=== PATIENT | female | born 1985 | race Caucasian/White ===

== ENCOUNTER 2017-05-15 08:12 | Emergency (ER) | payer BC ==
[2017-05-15 08:21] VITALS: TEMP 97
[2017-05-15] MEDS ORDERED: FAMOTIDINE 20 MG/2 ML VIAL IV STA (08:34)
[2017-05-15] MEDS ORDERED: SODIUM CHLORIDE 0.9% 1,000 ML IV STA (08:34)
--- NOTE | 2017-05-15 08:37 | ED ---
General Adult HPI - General Chief complaint: Abdominal Pain Stated complaint: Can't stop shaking Time Seen by Provider: 05/15/17 08:28 Source: patient, RN notes reviewed Mode of arrival: wheelchair Limitations: no limitations - History of Present Illness Initial comments: 31-year-old female presents to the emergency department with a chief complaint of centralized abdominal pain. She states that for the last week. She went to the hospital then she follow-up with her doctor yesterday. They think it is anxiety and she started on Prozac. She states she feels as if there is something wrong. She states that she's had nausea and vomiting. She states she hasn't had as much urination or bowel movements is normal. She states that she just needs to figure was going on. Patient is very tearful on exam. Patient denies any recent fever, chills, shortness of breath, chest pain, back pain, numbness or tingling, dysuria or hematuria, constipation or diarrhea, headaches or visual changes, or any other current symptoms. - Related Data Home Medications Medication Instructions Recorded Confirmed FLUoxetine HCL [PROzac] 10 mg PO DAILY 05/15/17 05/15/17 Famotidine [Pepcid] 20 mg PO DAILY 05/15/17 05/15/17 Ondansetron HCl [Zofran] 8 mg PO Q8HR PRN 05/15/17 05/15/17 busPIRone HCl [Buspar] 5 mg PO DAILY 05/15/17 05/15/17 Previous Rx's Medication Instructions Recorded Ondansetron Odt [Zofran ODT] 4 mg PO Q8HR PRN #20 tab 05/15/17 Allergies Allergy/AdvReac Type Severity Reaction Status Date / Time No Known Allergies Allergy Verified 05/15/17 08:50 Review of Systems ROS Statement: Those systems with pertinent positive or pertinent negative responses have been documented in the HPI. ROS Other: All systems not noted in ROS Statement are negative. Past Medical History Past Medical History: No Reported History History of Any Multi-Drug Resistant Organisms: None Reported Past Surgical History: No Surgical Hx Reported Past Psychological History: Anxiety Smoking Status: Never smoker Past Alcohol Use History: None Reported Past Drug Use History: Marijuana General Exam - General Exam Comments Initial Comments: General: The patient is awake and alert, anxious and tearful, and does not appear acutely ill. Eye: Pupils are equal, round. Ears, nose, mouth and throat: There are moist mucous membranes and no oral lesions. Neck: The neck is supple, there is no tenderness . Cardiovascular: There is a regular rate and rhythm. No murmur, rub or gallop is appreciated. Respiratory: Lungs are clear to auscultation, respirations are non-labored, breath sounds are equal. No wheezes, stridor, rales, or rhonchi. Gastrointestinal: Soft, non-distended, non-tender abdomen without masses or organomegaly noted. There is no rebound or guarding present. No CVA tenderness. Bowel sounds are unremarkable. Back: There is no tenderness to palpation in the midline. There is no obvious deformity. No rashes noted. Musculoskeletal: Normal ROM, no tenderness, There is no pedal edema. There is no calf tenderness or swelling. Sensation intact. Pulses equal bilaterally 2+. Neurological: CN II-XII intact, There are no obvious motor or sensory deficits. Coordination appears grossly intact. Speech is normal. Skin: Skin is warm and dry and no rashes or lesions are noted. Psychiatric: Cooperative, appropriate mood & affect, normal judgment. Limitations: no limitations Course Vital Signs 05/15/17 05/15/17 08:16 09:21 Temperature 97.0 F L Pulse Rate 106 H 91 Respiratory 18 16 Rate Blood Pressure 135/90 115/77 O2 Sat by Pulse 98 98 Oximetry Medical Decision Making - Medical Decision Making 31-year-old female presents for abdominal pain with nausea vomiting. This and laboratory she does show some dehydration. We will send the urine for culture as well. We discussed that she needs to follow-up with a GI specialist for her continued discomfort. We discussed continuing the and acid that she is on. We did discuss refrain from marijuana and used to see if this could also be contributing to her symptoms. We did discuss the importance of close follow-up return parameters all questions. Patient family stated the Margarito management this plan. All questions have been answered. They will be discharged home. - Lab Data Result diagrams: 05/15/17 08:43 05/15/17 08:43 Lab Results 05/15/17 05/15/17 05/15/17 Range/Units 08:43 08:43 08:43 WBC 8.2 (3.8-10.6) k/uL RBC 5.50 H (3.80-5.40) m/uL Hgb 16.5 H (11.4-16.0) gm/dL Hct 50.3 H (34.0-46.0) % MCV 91.3 (80.0-100.0) fL MCH 30.0 (25.0-35.0) pg MCHC 32.9 (31.0-37.0) g/dL RDW 11.6 (11.5-15.5) % Plt Count 239 (150-450) k/uL Neutrophils % 80 % Lymphocytes % 14 % Monocytes % 4 % Eosinophils % 1 % Basophils % 0 % Neutrophils # 6.5 (1.3-7.7) k/uL Lymphocytes # 1.1 (1.0-4.8) k/uL Monocytes # 0.3 (0-1.0) k/uL Eosinophils # 0.1 (0-0.7) k/uL Basophils # 0.0 (0-0.2) k/uL Sodium 142 (137-145) mmol/L Potassium 5.3 H (3.5-5.1) mmol/L Chloride 107 (98-107) mmol/L Carbon Dioxide 22 (22-30) mmol/L Anion Gap 13 mmol/L BUN 13 (7-17) mg/dL Creatinine 0.70 (0.52-1.04) mg/dL Est GFR (MDRD) Af Amer >60 (>60 ml/min/1.73 sqM) Est GFR (MDRD) Non-Af >60 (>60 ml/min/1.73 sqM) Glucose 114 H (74-99) mg/dL Calcium 10.4 H (8.4-10.2) mg/dL Total Bilirubin 1.1 (0.2-1.3) mg/dL AST 23 (14-36) U/L ALT 15 (9-52) U/L Alkaline Phosphatase 59 (38-126) U/L Total Protein 8.3 H (6.3-8.2) g/dL Albumin 5.0 (3.5-5.0) g/dL Amylase 47 (30-110) U/L Urine Color Yellow Urine Appearance Cloudy H (Clear) Urine pH 6.5 (5.0-8.0) Ur Specific [place] 1.028 (1.001-1.035) Urine Protein 1+ H (Negative) Urine Glucose (UA) Negative (Negative) Urine Ketones 2+ H (Negative) Urine Blood Negative (Negative) Urine Nitrite Negative (Negative) Urine Bilirubin Negative (Negative) Urine Urobilinogen 6.0 (<2.0) mg/dL Ur Leukocyte Esterase Large H (Negative) Urine WBC 21 H (0-5) /hpf Ur Squamous Epith Cells 12 H (0-4) /hpf Urine Bacteria Rare H (None) /hpf Urine Mucus Many H (None) /hpf Urine HCG, Qual (Not Detectd) Urine Opiates Screen Not Detected (NotDetected) Ur Oxycodone Screen Not Detected (NotDetected) Urine Methadone Screen Not Detected (NotDetected) Ur Propoxyphene Screen Not Detected (NotDetected) Ur Barbiturates Screen Not Detected (NotDetected) U Tricyclic Antidepress Not Detected (NotDetected) Ur Phencyclidine Scrn Not Detected (NotDetected) Ur Amphetamines Screen Not Detected (NotDetected) U Methamphetamines Scrn Not Detected (NotDetected) U Benzodiazepines Scrn Not Detected (NotDetected) Urine Cocaine Screen Not Detected (NotDetected) U Marijuana (THC) Screen Detected H (NotDetected) 05/15/17 Range/Units 08:43 WBC (3.8-10.6) k/uL RBC (3.80-5.40) m/uL Hgb (11.4-16.0) gm/dL Hct (34.0-46.0) % MCV (80.0-100.0) fL MCH (25.0-35.0) pg MCHC (31.0-37.0) g/dL RDW (11.5-15.5) % Plt Count (150-450) k/uL Neutrophils % % Lymphocytes % % Monocytes % % Eosinophils % % Basophils % % Neutrophils # (1.3-7.7) k/uL Lymphocytes # (1.0-4.8) k/uL Monocytes # (0-1.0) k/uL Eosinophils # (0-0.7) k/uL Basophils # (0-0.2) k/uL Sodium (137-145) mmol/L Potassium (3.5-5.1) mmol/L Chloride (98-107) mmol/L Carbon Dioxide (22-30) mmol/L Anion Gap mmol/L BUN (7-17) mg/dL Creatinine (0.52-1.04) mg/dL Est GFR (MDRD) Af Amer (>60 ml/min/1.73 sqM) Est GFR (MDRD) Non-Af (>60 ml/min/1.73 sqM) Glucose (74-99) mg/dL Calcium (8.4-10.2) mg/dL Total Bilirubin (0.2-1.3) mg/dL AST (14-36) U/L ALT (9-52) U/L Alkaline Phosphatase (38-126) U/L Total Protein (6.3-8.2) g/dL Albumin (3.5-5.0) g/dL Amylase (30-110) U/L Urine Color Urine Appearance (Clear) Urine pH (5.0-8.0) Ur Specific [place] (1.001-1.035) Urine Protein (Negative) Urine Glucose (UA) (Negative) Urine Ketones (Negative) Urine Blood (Negative) Urine Nitrite (Negative) Urine Bilirubin (Negative) Urine Urobilinogen (<2.0) mg/dL Ur Leukocyte Esterase (Negative) Urine WBC (0-5) /hpf Ur Squamous Epith Cells (0-4) /hpf Urine Bacteria (None) /hpf Urine Mucus (None) /hpf Urine HCG, Qual Not Detected (Not Detectd) Urine Opiates Screen (NotDetected) Ur Oxycodone Screen (NotDetected) Urine Methadone Screen (NotDetected) Ur Propoxyphene Screen (NotDetected) Ur Barbiturates Screen (NotDetected) U Tricyclic Antidepress (NotDetected) Ur Phencyclidine Scrn (NotDetected) Ur Amphetamines Screen (NotDetected) U Methamphetamines Scrn (NotDetected) U Benzodiazepines Scrn (NotDetected) Urine Cocaine Screen (NotDetected) U Marijuana (THC) Screen (NotDetected) - Radiology Data Radiology results: report reviewed, image reviewed Disposition Clinical Impression: Dehydration, Abdominal pain Disposition: HOME SELF-CARE Condition: Stable Instructions: Abdominal Pain (ED) Additional Instructions: Please use medication as discussed. Please follow up with family doctor if symptoms have not improved over the next two days. Please return to the emergency room if your symptoms increase or worsen or for any other concerns. Prescriptions: Ondansetron Odt [Zofran ODT] 4 mg PO Q8HR PRN #20 tab PRN Reason: Nausea Referrals: Niki Fritz MD [Primary Care Provider] - 1-2 days Kiera Charles MD [STAFF PHYSICIAN] - 1-2 days Time of Disposition: 10:04
[2017-05-15 09:05] LABS: Basophils % (A) 0 %; Eosinophils # (A) 0.1 k/uL (0-0.7); Eosinophils % (A) 1 %; HCT 50.3 % (34.0-46.0); HGB 16.5 gm/dL (11.4-16.0); Lymphocytes # (A) 1.1 k/uL (1.0-4.8); Lymphocytes % (A) 14 %; MCHC 32.9 g/dL (31.0-37.0); MCV 91.3 fL (80.0-100.0); Monocytes # (A) 0.3 k/uL (0-1.0); Monocytes % (A) 4 %; Neutrophils # (A) 6.5 k/uL (1.3-7.7); Neutrophils % (A) 80 %; Platelet Count 239 k/uL (150-450); RDW 11.6 % (11.5-15.5); WBC 8.2 k/uL (3.8-10.6)
[2017-05-15 09:09] LABS: Appearance,Urine Cloudy (Clear); Bacteria,Urine Rare /hpf; Bilirubin,Urine Negative (Negative); Blood,Urine Negative (Negative); Color,Urine Yellow; Glucose,Urine (UA) Negative (Negative); Ketones,Urine 2+ (Negative); Leukocyte Esterase,Urine Large (Negative); Mucus,Urine Many /hpf; Nitrite,Urine Negative (Negative); PH, Urine 6.5 (5.0-8.0); Protein,Urine 1+ (Negative); Specific Gravity,Urine 1.028 (1.001-1.035); Squamous Epithelial Cell,Urine 12 /hpf (0-4); WBC,Urine 21 /hpf (0-5)
[2017-05-15 09:16] LABS: Amphetamine Screen,Urine Not Detected (NotDetected); Barbiturate Screen,Urine Not Detected (NotDetected); Benzodiazepines Screen,Urine Not Detected (NotDetected); Cocaine Screen,Urine Not Detected (NotDetected); Methadone Screen, Urine Not Detected (NotDetected); Opiate Screen,Urine Not Detected (NotDetected); Oxycodone Screen, Urine Not Detected (NotDetected); Phencyclidine Screen,Urine Not Detected (NotDetected); Tricyclic Antidepressant,Urine Not Detected (NotDetected); Urn Cannabinoid Scrn Detected (NotDetected)
[2017-05-15 09:17] LABS: ALT 15 U/L (9-52); AST 23 U/L (14-36); Alkaline Phosphatase 59 U/L (38-126); Amylase 47 U/L (30-110); Anion Gap 13 mmol/L; Blood Urea Nitrogen 13 mg/dL (7-17); Calcium 10.4 mg/dL (8.4-10.2); Carbon Dioxide 22 mmol/L (22-30); Chloride 107 mmol/L (98-107); Glucose 114 mg/dL (74-99); Sodium 142 mmol/L (137-145); Total Bilirubin 1.1 mg/dL (0.2-1.3); Total Protein 8.3 g/dL (6.3-8.2)
[2017-05-15 09:21] LABS: Potassium 5.3 mmol/L (3.5-5.1)
--- NOTE | 2017-05-15 09:51 | XR ---
EXAMINATION TYPE: XR abdomen 2V DATE OF EXAM: 05/15/2017 9:40 AM CLINICAL HISTORY: Pain TECHNIQUE: Single supine KUB image of the abdomen is obtained. COMPARISON: None. FINDINGS: Scattered gas is seen in non-distended small bowel loops. Gas and fecal material is seen in non-distended colon. There is no visceromegaly, pneumoperitoneum, or abnormal calcification apprecia francisco. The lung bases are clear and the osseous structures are intact. IMPRESSION: Overall nonobstructive bowel gas pattern.
[2017-05-15 10:03] VITALS: BP 109/65
[2017-05-15 10:22] VITALS: PULSE 87; RESP 18
== END 2017-05-15 10:20 | disposition home or self-care (01) ==
LOC: EC 08:12
DX: E86.0 Dehydration (principal); R10.9 Unspecified abdominal pain; R11.2 Nausea with vomiting, unspecified; F41.9 Anxiety disorder, unspecified; Z79.899 Other long term (current) drug therapy
CPT/HCPCS: 36415; 74019; 80053; 80306; 81001; 81025; 82150; 85025; 87086; 96374; 99284

== ENCOUNTER 2017-05-15 15:56 | Inpatient (IN) | payer BC ==
[2017-05-15] MEDS ORDERED: RX INFO: IV CONTRAST WAS GIVEN 1 EACH MISC MISCELLANE PRN (16:47)
[2017-05-15] MEDS ORDERED: SODIUM CHLORIDE 0.9% 1,000 ML IV ONE (16:48)
[2017-05-15] MEDS ORDERED: LORazepam 2 MG/ML INJ IV STA (16:48)
[2017-05-15 17:05] LABS: Basophils # (A) 0.1 k/uL (0-0.2); Basophils % (A) 1 %; Eosinophils # (A) 0.1 k/uL (0-0.7); Eosinophils % (A) 1 %; HCT 48.6 % (34.0-46.0); HGB 15.6 gm/dL (11.4-16.0); Lymphocytes % (A) 19 %; MCH 29.7 pg (25.0-35.0); MCV 92.6 fL (80.0-100.0); Mean Platelet Volume 7.2; Monocytes # (A) 0.4 k/uL (0-1.0); Monocytes % (A) 4 %; Neutrophils # (A) 7.5 k/uL (1.3-7.7); Neutrophils % (A) 74 %; Platelet Count 272 k/uL (150-450); RBC 5.24 m/uL (3.80-5.40); RDW 13.3 % (11.5-15.5); WBC 10.1 k/uL (3.8-10.6)
[2017-05-15 17:17] LABS: Anion Gap 15 mmol/L; Blood Urea Nitrogen 8 mg/dL (7-17); Calcium 9.9 mg/dL (8.4-10.2); Carbon Dioxide 18 mmol/L (22-30); Chloride 108 mmol/L (98-107); Glucose 115 mg/dL (74-99); Lipase 71 U/L (23-300); Potassium 4.1 mmol/L (3.5-5.1); Sodium 141 mmol/L (137-145)
[2017-05-15 17:21] LABS: Amphetamine Screen,Urine Not Detected (NotDetected); Barbiturate Screen,Urine Not Detected (NotDetected); Benzodiazepines Screen,Urine Not Detected (NotDetected); Cocaine Screen,Urine Not Detected (NotDetected); Methadone Screen, Urine Not Detected (NotDetected); Opiate Screen,Urine Not Detected (NotDetected); Oxycodone Screen, Urine Not Detected (NotDetected); Phencyclidine Screen,Urine Not Detected (NotDetected); Tricyclic Antidepressant,Urine Not Detected (NotDetected); Urn Cannabinoid Scrn Detected (NotDetected)
--- NOTE | 2017-05-15 17:48 | CT ---
EXAMINATION TYPE: CT abdomen pelvis w con DATE OF EXAM: 05/15/2017 COMPARISON: NONE HISTORY: Patient complains of "gnawing" pain. CT DLP: 1039 mGycm Automated exposure control for dose reduction was used. TECHNIQUE: Helical acquisition of images was performed from the lung bases through the pelvis. CONTRAST: Performed without Oral Contrast and with IV Contrast, patient injected with 100 mL of Omnipaque 300. FINDINGS: Lung bases are clear. There is no pleural effusion. Liver spleen pancreas gallbladder appear normal. Bile ducts are not dilated. There is no adrenal mass. The kidneys show satisfactory contrast opacific ation. There is no hydronephrosis. Ureters are not dilated. Bladder distends smoothly. There is no si gn of a pelvic mass. Uterus is anteverted. There is no free fluid in the pelvis. I see no intestinal wall thickening. There are no dilated loops. There is no sign of appendicitis. Appendix appears jagjit l. I see no bony destructive process. There is a 1.7 cm irregular cyst on the left ovary. IMPRESSION: NEGATIVE CT SCAN OF THE ABDOMEN AND PELVIS. IRREGULAR SMALL LEFT OVARIAN CYST.
--- NOTE | 2017-05-15 19:46 | ED ---
Psych HPI - General Chief Complaint: Psychiatric Symptoms Stated Complaint: not feeling well-revisit Time Seen by Provider: 05/15/17 16:06 Source: patient Mode of arrival: ambulatory - History of Present Illness Initial Comments: 31-year-old female with no psych history presenting for evaluation of intense anxiety. She states that her symptoms started last and have progressively been worsening since then. She was seen by her primary care physician who started her on BuSpar and Prozac states that she had nausea vomiting and hasn't been able to keep them down. She states a week ago she started having epigastric abdominal pain and was seen at an outside facility with a negative workup and sent home. He is continued to have this pain which she states is now going throughout her entire abdomen. She denies any new medications, changes in her medications, fevers, chills, or injuries. She has never had anxiety prior to this and states she feels restless and cannot sit down. - Related Data Home Medications Medication Instructions Recorded Confirmed FLUoxetine HCL [PROzac] 10 mg PO DAILY 05/15/17 05/15/17 Famotidine [Pepcid] 20 mg PO DAILY 05/15/17 05/15/17 Ondansetron HCl [Zofran] 8 mg PO Q8HR PRN 05/15/17 05/15/17 busPIRone HCl [Buspar] 5 mg PO DAILY 05/15/17 05/15/17 Previous Rx's Medication Instructions Recorded Ondansetron Odt [Zofran ODT] 4 mg PO Q8HR PRN #20 tab 05/15/17 Allergies Allergy/AdvReac Type Severity Reaction Status Date / Time No Known Allergies Allergy Verified 05/15/17 16:06 Review of Systems ROS Statement: Those systems with pertinent positive or pertinent negative responses have been documented in the HPI. ROS Other: All systems not noted in ROS Statement are negative. Constitutional: Denies: fever, chills, weakness Eyes: Denies: eye pain, vision change ENT: Denies: ear pain, throat pain Respiratory: Denies: cough, dyspnea Cardiovascular: Denies: chest pain, palpitations Endocrine: Denies: fatigue, polydipsia, polyuria Gastrointestinal: Reports: abdominal pain, nausea, vomiting. Denies: diarrhea, constipation, hematemesis, melena, hematochezia Genitourinary: Denies: urgency, dysuria Musculoskeletal: Denies: back pain, arthralgia, myalgia Skin: Denies: rash, lesions, change in color Neurological: Denies: headache, weakness Psychiatric: Reports: anxiety. Denies: depression, auditory hallucinations, visual hallucinations, homicidal thoughts, suicidal thoughts Hematological/Lymphatic: Denies: easy bleeding, swollen glands Past Medical History Past Medical History: No Reported History History of Any Multi-Drug Resistant Organisms: None Reported Past Surgical History: No Surgical Hx Reported Past Psychological History: Anxiety Smoking Status: Never smoker Past Alcohol Use History: None Reported Past Drug Use History: Marijuana General Exam General appearance: alert, anxious, in distress (Anxious and pacing the room) Head exam: Present: atraumatic, normocephalic, normal inspection Eye exam: Present: normal appearance, PERRL, EOMI. Absent: scleral icterus, conjunctival injection ENT exam: Present: normal exam, normal oropharynx Neck exam: Present: normal inspection. Absent: tenderness Respiratory exam: Present: normal lung sounds bilaterally. Absent: respiratory distress Cardiovascular Exam: Present: normal rhythm, tachycardia. Absent: regular rate GI/Abdominal exam: Present: soft, tenderness. Absent: distended, guarding, rebound, rigid Rectal exam: Present: deferred Extremities exam: Present: normal inspection, full ROM Back exam: Present: normal inspection, full ROM Neurological exam: Present: alert, oriented X3, CN II-XII intact, normal gait Psychiatric exam: Present: agitated, anxious. Absent: homicidal ideation, suicidal ideation Skin exam: Present: warm, dry, intact, normal color Course Vital Signs 05/15/17 15:59 Temperature 97.4 F L Pulse Rate 102 H Respiratory 18 Rate Blood Pressure 132/85 O2 Sat by Pulse 94 L Oximetry Medical Decision Making - Medical Decision Making 31-year-old female with past medical history as noted above presented for psych evaluation and epigastric abdominal pain. She states that she has Oscar been seen for the abdominal pain and outside facility with negative workup. Patient states that she is abnormally anxious and is unable to sit down or relaxed. On physical examination the patient appears to be moderately distressed and anxiously pacing the room. As she is relating her story she becomes even more agitated however is not violent and denies suicidal or homicidal ideations. Physical examination reveals epigastric abdominal pain however no other significant abnormalities are noted. We will obtain a medical workup however patient will be requiring a psych evaluation. Labs revealed marijuana in her UDS however the remainder of her labs show no significant abnormalities. CT abdomen and pelvis showed no acute process. Psych solid patient and determined that she would necessitate inpatient psychiatric admission. Admission order placed in bed request submitted. - Lab Data Result diagrams: 05/15/17 16:55 05/15/17 16:55 Lab Results 05/15/17 05/15/17 05/15/17 Range/Units 16:55 16:55 17:00 WBC 10.1 (3.8-10.6) k/uL RBC 5.24 (3.80-5.40) m/uL Hgb 15.6 (11.4-16.0) gm/dL Hct 48.6 H (34.0-46.0) % MCV 92.6 (80.0-100.0) fL MCH 29.7 (25.0-35.0) pg MCHC 32.0 (31.0-37.0) g/dL RDW 13.3 (11.5-15.5) % Plt Count 272 (150-450) k/uL Neutrophils % 74 % Lymphocytes % 19 % Monocytes % 4 % Eosinophils % 1 % Basophils % 1 % Neutrophils # 7.5 (1.3-7.7) k/uL Lymphocytes # 2.0 (1.0-4.8) k/uL Monocytes # 0.4 (0-1.0) k/uL Eosinophils # 0.1 (0-0.7) k/uL Basophils # 0.1 (0-0.2) k/uL Sodium 141 (137-145) mmol/L Potassium 4.1 (3.5-5.1) mmol/L Chloride 108 H (98-107) mmol/L Carbon Dioxide 18 L (22-30) mmol/L Anion Gap 15 mmol/L BUN 8 (7-17) mg/dL Creatinine 0.61 (0.52-1.04) mg/dL Est GFR (MDRD) Af Amer >60 (>60 ml/min/1.73 sqM) Est GFR (MDRD) Non-Af >60 (>60 ml/min/1.73 sqM) Glucose 115 H (74-99) mg/dL Calcium 9.9 (8.4-10.2) mg/dL Lipase 71 (23-300) U/L Urine Opiates Screen Not Detected (NotDetected) Ur Oxycodone Screen Not Detected (NotDetected) Urine Methadone Screen Not Detected (NotDetected) Ur Propoxyphene Screen Not Detected (NotDetected) Ur Barbiturates Screen Not Detected (NotDetected) U Tricyclic Antidepress Not Detected (NotDetected) Ur Phencyclidine Scrn Not Detected (NotDetected) Ur Amphetamines Screen Not Detected (NotDetected) U Methamphetamines Scrn Not Detected (NotDetected) U Benzodiazepines Scrn Not Detected (NotDetected) Urine Cocaine Screen Not Detected (NotDetected) U Marijuana (THC) Screen Detected H (NotDetected) Disposition Clinical Impression: Acute anxiety, Epigastric abdominal pain Disposition: ADMITTED IP TO THIS [facility] Referrals: Niki Fritz MD [Primary Care Provider] - 1-2 days Decision to Admit Reason: Admit from EC Decision Date: 05/15/17 Decision Time: 19:45
[2017-05-15] MEDS ORDERED: ACETAMINOPHEN TAB 500 MG TAB PO STA (20:07)
[2017-05-15] MEDS ORDERED: MAG HYDROX/AL HYDROX/SIMETH 30 ML CUP PO PRN (22:02)
[2017-05-15] MEDS ORDERED: ACETAMINOPHEN TAB 325 MG TAB PO PRN (22:02)
[2017-05-15] MEDS ORDERED: MAGNESIUM HYDROXIDE 2,400 MG/10 ML CUP PO PRN (22:02)
[2017-05-15] MEDS ORDERED: LORazepam 1 MG TAB PO PRN (22:02)
[2017-05-16 08:34] LABS: Basophils % (A) 1 %; Eosinophils # (A) 0.1 k/uL (0-0.7); Eosinophils % (A) 1 %; HCT 45.8 % (34.0-46.0); HGB 15.2 gm/dL (11.4-16.0); Lymphocytes # (A) 1.9 k/uL (1.0-4.8); Lymphocytes % (A) 37 %; MCH 30.4 pg (25.0-35.0); MCHC 33.2 g/dL (31.0-37.0); MCV 91.6 fL (80.0-100.0); Mean Platelet Volume 6.7; Monocytes # (A) 0.2 k/uL (0-1.0); Monocytes % (A) 4 %; Neutrophils # (A) 2.8 k/uL (1.3-7.7); Neutrophils % (A) 54 %; Platelet Count 236 k/uL (150-450); RDW 11.6 % (11.5-15.5); WBC 5.1 k/uL (3.8-10.6)
[2017-05-16 08:58] LABS: ALT 27 U/L (9-52); AST 13 U/L (14-36); Albumin 4.2 g/dL (3.5-5.0); Alkaline Phosphatase 54 U/L (38-126); Anion Gap 11 mmol/L; Blood Urea Nitrogen 9 mg/dL (7-17); Calcium 9.7 mg/dL (8.4-10.2); Carbon Dioxide 22 mmol/L (22-30); Chloride 108 mmol/L (98-107); Glucose 91 mg/dL (74-99); Potassium 4.3 mmol/L (3.5-5.1); Sodium 141 mmol/L (137-145); Total Protein 6.9 g/dL (6.3-8.2)
[2017-05-16 09:55] VITALS: BMI 21.7
--- NOTE | 2017-05-16 12:24 | P.HPIM ---
History of Present Illness H&P Date: 05/16/17 Patient is a 31-year-old female patient of Dr. Fritz presented to [facility] emergency room with depression and having ideas of suicide. Patient stated that she was having severe abdominal pain that was bothering her a lot and making her unable to eat or sleep, she was even thinking of not living anymore due to severe pain. She was evaluated in emergency room and admitted to the psychiatry unit. Medical consultation was requested. CT scan of the abdomen and pelvis was done in ER and did not show any significant abnormality. Lipase was normal WBC normal. Past Medical History Past Medical History: Cancer Additional Past Medical History / Comment(s): history of cervical cancer at age 17 History of Any Multi-Drug Resistant Organisms: None Reported Past Surgical History: No Surgical Hx Reported Additional Past Surgical History / Comment(s): removal of wisdom teeth Past Anesthesia/Blood Transfusion Reactions: No Reported Reaction Past Psychological History: No Psychological Hx Reported Smoking Status: Former smoker Past Alcohol Use History: None Reported Past Drug Use History: Marijuana Medications and Allergies Home Medications Medication Instructions Recorded Confirmed Type FLUoxetine HCL [PROzac] 10 mg PO DAILY 05/15/17 05/15/17 History Famotidine [Pepcid] 20 mg PO DAILY 05/15/17 05/15/17 History Ondansetron HCl [Zofran] 8 mg PO Q8HR PRN 05/15/17 05/15/17 History Ondansetron Odt [Zofran ODT] 4 mg PO Q8HR PRN #20 tab 05/15/17 05/15/17 Rx busPIRone HCl [Buspar] 5 mg PO DAILY 05/15/17 05/15/17 History Allergies Allergy/AdvReac Type Severity Reaction Status Date / Time No Known Allergies Allergy Verified 05/15/17 16:06 Physical Exam Vitals: Vital Signs Temp Pulse Pulse Resp BP BP Pulse Ox 05/16/17 09:39 98.0 F 118 H 135/77 05/16/17 06:40 97.9 F 130 H 16 154/87 05/15/17 21:39 98.0 F 118 H 135/77 05/15/17 15:59 97.4 F L 102 H 18 132/85 94 L Intake and Output 01/16/18 01/17/18 01/17/18 22:59 06:59 14:59 Other: Weight 61.235 kg 59.052 kg Patient Weight 05/17/17 06:59 Weight 59.052 kg In general patient is alert and oriented 3 no apparent distress HEENT head normocephalic and atraumatic Neck is supple no JVD no goiter no lymphadenopathy Chest exam reveals a few scattered crackles no wheezing Cardiac exam reveals regular heart sounds no gallops no murmur Abdomen is soft nontender no organomegaly Extremity exam reveals no edema Results CBC & Chem 7: 05/16/17 08:03 05/16/17 08:03 Labs: Abnormal Lab Results - Last 24 Hours (Table) 05/15/17 05/15/17 05/15/17 Range/Units 16:55 16:55 17:00 Hct 48.6 H (34.0-46.0) % Chloride 108 H (98-107) mmol/L Carbon Dioxide 18 L (22-30) mmol/L Glucose 115 H (74-99) mg/dL AST (14-36) U/L U Marijuana (THC) Screen Detected H (NotDetected) 05/16/17 Range/Units 08:03 Hct (34.0-46.0) % Chloride 108 H (98-107) mmol/L Carbon Dioxide (22-30) mmol/L Glucose (74-99) mg/dL AST 13 L (14-36) U/L U Marijuana (THC) Screen (NotDetected) Thrombosis Risk Factor Assmnt - Choose All That Apply Any of the Below Risk Factors Present?: No Other Risk Factors: No Other congenital or acquired thrombophilia - If yes, enter type in comment: No Thrombosis Risk Factor Assessment Level: Very Low Risk Assessment and Plan Assessment: #1 Depression with anxiety management per primary psychiatry #2 Abdominal pain, cause is unclear, cannot rule out peptic ulcer disease, will start patient on oral Protonix and consult GI for possible EGD will follow during this hospital stay for medical management
--- NOTE | 2017-05-16 13:10 | P.CONS ---
History of Present Illness - Reason for Consult Consult date: 05/16/17 Epigastric pain Requesting physician: Donita Reaves - History of Present Illness 31-year-old female with a history depression, admitted with suicidal ideations and severe epigastric pain nausea vomiting disturbing her sleep and consumption of meals. Epigastric pain has been present for more than a week. Recently evaluated at PCP office and told her symptoms were related to "anxiety". No alcohol. o NSAIDS. No history of this type of pain. No history of peptic ulcer disease or EGD. No history of GI bleed. Denies hematemesis hematochezia melena. CT abdomen and pelvis negative. Hemoglobin 15.2. White count 5.1 platelet 236. LFTs unremarkable. Lipase 71. No further emesis just dry heaves. Review of Systems Constitutional: Denies fever, chills, sweats, weight gain, or loss. HEENT: Negative for migraines, blurred vision or loss, earaches, drainage, tinnitus, oral mucosal lesions, dysphagia, or odynophagia. CARDIAC: Negative for chest pain, arrhythmias, or palpitation. RESPIRATORY: Negative for shortness of breath, hemoptysis, cough, or sputum production. GI: See HPI for pertinent findings. : Negative for hematuria, urgency, frequency, polyuria, or dysuria. GYNc: Denies possibility of . Negative vaginal discharge. MUSCULOSKELETAL: Negative for muscle aches, swelling, arthritis, and arthralgias. NEUROLOGIC: Negative for stroke or TIA. ENDOCRINE: Negative for thyroid problems. SKIN: Negative for rash or itching. PSYCHIATRIC: Bipolar. Past Medical History Past Medical History: Cancer Additional Past Medical History / Comment(s): history of cervical cancer at age 17 History of Any Multi-Drug Resistant Organisms: None Reported Past Surgical History: No Surgical Hx Reported Additional Past Surgical History / Comment(s): removal of wisdom teeth Past Anesthesia/Blood Transfusion Reactions: No Reported Reaction Past Psychological History: No Psychological Hx Reported Smoking Status: Former smoker Past Alcohol Use History: None Reported Past Drug Use History: Marijuana Medications and Allergies Home Medications Medication Instructions Recorded Confirmed Type FLUoxetine HCL [PROzac] 10 mg PO DAILY 05/15/17 05/15/17 History Famotidine [Pepcid] 20 mg PO DAILY 05/15/17 05/15/17 History Ondansetron HCl [Zofran] 8 mg PO Q8HR PRN 05/15/17 05/15/17 History Ondansetron Odt [Zofran ODT] 4 mg PO Q8HR PRN #20 tab 05/15/17 05/15/17 Rx busPIRone HCl [Buspar] 5 mg PO DAILY 05/15/17 05/15/17 History Allergies Allergy/AdvReac Type Severity Reaction Status Date / Time No Known Allergies Allergy Verified 05/15/17 16:06 Physical Exam Vitals: Vital Signs Temp Pulse Pulse Resp BP BP Pulse Ox 05/16/17 09:39 98.0 F 118 H 135/77 05/16/17 06:40 97.9 F 130 H 16 154/87 05/15/17 21:39 98.0 F 118 H 135/77 05/15/17 15:59 97.4 F L 102 H 18 132/85 94 L Intake and Output 05/15/17 05/16/17 05/16/17 22:59 06:59 14:59 Other: Weight 61.235 kg 59.052 kg Patient Weight 05/17/17 06:59 Weight 59.052 kg General appearance: The patient is alert, oriented, in no acute distress. HET: Head is normocephalic and atraumatic. Pupils are equal and reactive. Oropharynx is clear without lesions. Neck: Supple without lymphadenopathy. Trachea midline. Heart: S1 S2. Regular rate and rhythm. Lungs: No crackles or wheezes are heard. Abdomen: Soft, epigastric tenderness, nondistended with bowel sounds. No peritoneal signs. No palpable organomegaly or masses. Extremities: Normal skin color and turgor. No cyanosis, rash, ulceration, clubbing, or edema. Radial and pedal pulses are 2/4 bilaterally. Neurological: No focal deficits. Strength and sensation are grossly intact. Results CBC & Chem 7: 05/16/17 08:03 05/16/17 08:03 Labs: Abnormal Lab Results - Last 24 Hours (Table) 05/15/17 05/15/17 05/15/17 Range/Units 16:55 16:55 17:00 Hct 48.6 H (34.0-46.0) % Chloride 108 H (98-107) mmol/L Carbon Dioxide 18 L (22-30) mmol/L Glucose 115 H (74-99) mg/dL AST (14-36) U/L U Marijuana (THC) Screen Detected H (NotDetected) 05/16/17 Range/Units 08:03 Hct (34.0-46.0) % Chloride 108 H (98-107) mmol/L Carbon Dioxide (22-30) mmol/L Glucose (74-99) mg/dL AST 13 L (14-36) U/L U Marijuana (THC) Screen (NotDetected) CT scan - abdomen: report reviewed (Dr. Leonardo) Assessment and Plan (1) Epigastric abdominal pain Narrative/Plan: Severe epigastric pain without bleeding possible gastritis possible esophagitis possible peptic ulcer disease Current Visit: Yes Status: Acute Code(s): R10.13 - EPIGASTRIC PAIN SNOMED Code(s): 50487823 (2) Suicidal ideations Current Visit: Yes Status: Acute Code(s): R45.851 - SUICIDAL IDEATIONS SNOMED Code(s): 1986559 Plan: 1. Case was discussed with attending Dr. Reaves. We'll proceed with EGD evaluation tomorrow. Qualitative hCG. Omeprazole 40 mg daily. Carafate 1 g twice a day. Light diet as tolerated. Nothing by mouth after midnight. The log processor operator has discussed the risks, benefits and alternative therapies for the above-mentioned procedure and for both sedation/analgesia as well as necessary blood product administration, if indicated, as they pertain to this patient. The patient has indicated understanding and acceptance of the risks and procedures discussed. Thank you for this kind referral and the opportunity to participate in the care of your patient. This consultation was discussed with Dr. Leonardo. The impression and plan of care have been directed as dictated.
[2017-05-16 14:24] LABS: Appearance,Urine Cloudy (Clear); Bacteria,Urine Rare /hpf; Bilirubin,Urine Negative (Negative); Blood,Urine Negative (Negative); Color,Urine Yellow; Glucose,Urine (UA) Negative (Negative); Ketones,Urine 2+ (Negative); Leukocyte Esterase,Urine Large (Negative); Mucus,Urine Few /hpf; Nitrite,Urine Negative (Negative); PH, Urine 6.5 (5.0-8.0); Protein,Urine Negative (Negative); RBC,Urine 4 /hpf (0-5); Specific Gravity,Urine 1.016 (1.001-1.035); Squamous Epithelial Cell,Urine 12 /hpf (0-4); WBC,Urine 8 /hpf (0-5)
[2017-05-16] MEDS: OLANZapine 5 MG TAB PO SCH ×2 (17:31→21:01)
[2017-05-16] MEDS: SUCRALFATE 1 GM TAB PO SCH (17:31)
--- NOTE | 2017-05-16 20:52 | HP ---
HISTORY AND PHYSICAL DATE OF SERVICE: 05/16/2017 IDENTIFYING DATA: The patient is a 31-year-old female. She lives with her significant other and 3 children. She presented to the emergency room for evaluation. CHIEF COMPLAINT: The patient complained of significant abdominal pain. Along with that she was increasingly anxious. She gets panic symptoms. She has had crying spells. She was significantly distressed. HISTORY OF PRESENTING ILLNESS: The patient has not had a prior psychiatric hospitalization. She has been on Prozac 10 mg a day and BuSpar 5 mg a day, prescribed by her primary care. She says she has had increasing problems in the last 10 days. She cannot really identify any immediate stress issues. She does say she has general stress at work because she works about 60 hours. She says she has a supportive partner with whom she lives. She says that in the last 10 days she has become increasingly anxious, she gets tightness in her lower chest area, she has been sleeping poorly, she has had crying spells and says she is emotionally reactive. She denies any long-term problems with anxiety or depression though then says that if I asked her partner, he would say that she is always having problems with anxiety. She says in fact if we talked to her mother, her mother would now say the same thing as her partner. Much of her life she has had anxiety and worries. She does note that she smokes marijuana on a daily basis. She says she will smoke a small amount of marijuana before she goes to work, then when she is off work she will smoke some more. She says she has had some stretches of up to 2 months where she has been without marijuana, though the last time she did that was about a year and a half ago. She said when she stopped smoking she did not feel she had any problems with withdrawal. When I asked her why she stopped smoking a year and a half ago, she said that she was having problems with increasing tolerance and felt that it was better to stop so that she could reduce her usage. She has loss of motivation, energy and interest. Much of her change has been just in the last 10 days. She does acknowledge that she has had a lot of emotionality, and even little things can set off her emotions where she might have a crying spell, whether it is for something good or something bad. She notes that her oldest brother has had problems with extreme anxiety. She says that she has not felt comfortable with her medications. She only took a couple doses of Prozac and BuSpar. She thought it caused her to have some uncomfortable feeling , so she stopped it. She is not in any psychotherapy. She is admitted for further evaluation. SUBSTANCE USE HISTORY: As above. Patient denies other problems. She reports no significant use of alcohol or use of other abusive substances beyond marijuana. Patient notes that her last marijuana use was 4 days ago. PAST MEDICAL HISTORY AND REVIEW OF SYSTEMS: As per medical consultation of Ms Elena NP. FAMILY AND SOCIAL HISTORY: The patient has 3 children in the home. She and her significant other have an 8 -year- old and an 11-year-old and the boyfriend also has a 15-year-old. The 3 of them live all in the home together. The patient says that she attained a GED and then did half a year of college. She has an interest in going into the field of mental health. She grew up in a family with 3 older brothers. She said it was a very stable situation. She did not experience any significant abuse or neglect issues. MENTAL STATUS EXAM: Patient was somewhat restless. She gave fair eye contact. She answered questions with brief responses. Her thoughts were clear. She had a blunted affect. Her mood was depressed. She was significantly distressed. There was no indication of thought disorder. Cognitive exam was clear. Patient did not make an effort to answer formal cognitive questions. ASSESSMENT: This 31-year-old female was diagnosed with major depression with significant anxiety and panic symptoms. She also has marijuana dependence with acute withdrawal. The patient has only limited insight in regards to the issues relating to her marijuana use. Her strengths include that she has a good job that she performs well in. Weakness includes lack of insight about both mental health and substance use issues. DIAGNOSES: 1. Major depression, severe, without psychotic features. 2. Marijuana dependence and acute marijuana withdrawal. RECOMMENDATIONS: Patient will be admitted for comprehensive medical, psychiatric and psychosocial evaluation. We will engage the patient in individual and group therapeutic activities. I had an extensive discussion with the patient regarding the need to address early withdrawal issues, which are likely to be a major factor in her presentation. She has been free of marijuana for 4 days and so likely is into fairly moderate process of withdrawal. I will start the patient on Zyprexa 5 mg 3 times a day. The aim is Zyprexa to help reduce physiologic stress response as it relates to withdrawal from marijuana. I will also start the patient on Desyrel 75 mg at bedtime due to her complaint of poor sleep. We will look at setting up a family meeting. We will continue to focus on stabilization and discharge planning end. GENESIS / BRIIN: [id number] / LITO
[2017-05-16] MEDS ORDERED: traZODone HCL 50 MG TAB PO SCH (21:00)
[2017-05-17] MEDS: PANTOPRAZOLE 40 MG TABLET PO SCH (08:12)
[2017-05-17] MEDS: SUCRALFATE 1 GM TAB PO SCH ×2 (08:12→17:40)
[2017-05-17] MEDS: OLANZapine 5 MG TAB PO SCH ×3 (09:10→20:50)
--- NOTE | 2017-05-17 17:23 | PN ---
PROGRESS NOTE DATE OF SERVICE: 05/17/2017. CHIEF COMPLAINT: The patient complained of significant abdominal pain. Along with that she was increasingly anxious. She gets panic symptoms. She has had crying spells. She has significant distress. INTERVAL HISTORY: Patient has been doing fairly well. She had a quiet evening last night. She said she slept well last night. In fact, she said it was a little hard for her to wake up this morning, but she was pleased to get a full night's sleep. Today she has been up and about. She has not been attending groups. She does socialize some with others. She says that her mood is quite a bit improved. She has a better outlook. When we talked about issues related to use of marijuana, she seemed to have some reasonable insight and motivation to move away from smoking marijuana. She had endoscopy today and was found to have a hiatal hernia. She has not had other change in her general health. She tolerates psychotropic medications. MENTAL STATUS: Patient gave good eye contact. Psychomotor activity was a little restless. Speech was clear. She answered questions with direct responses. Her affect was in the reasonable range. She smiled. Her mood was even. She did not appear to be distressed. ASSESSMENT: I will continue the current diagnosis and treatment plan. I will reduce trazodone down to 50 mg at bedtime. We had an extensive discussion regarding use of marijuana. I again reviewed issues related to the course of withdrawal. We further discussed problems with use of marijuana in the midst of anxiety and depression issues. Given that the patient has made good progress, I would look to discharge the patient tomorrow after a family meeting with her fiance. We discussed management of gastritis and symptoms related to hiatal hernia. We will continue to focus on stabilization and discharge planning. MMODL / IJN: [id number] /
[2017-05-17] MEDS ORDERED: traZODone HCL 50 MG TAB PO SCH (21:00)
[2017-05-18 07:01] VITALS: BP 97/55; PULSE 69; RESP 14; TEMP 98.8
--- NOTE | 2017-05-18 09:10 | P.PN ---
Subjective Progress Note Date: 05/18/17 Principal diagnosis: epigastric pain Status post EGD no evidence of cognitive reflux disease. Still reports discomfort. Possible discharge today. No bleeding. Afebrile. Objective - Vital Signs Vital signs: Vital Signs Temp 98.8 F 05/18/17 07:00 Pulse 69 05/18/17 07:00 Resp 14 05/18/17 07:00 BP 97/55 05/18/17 07:00 Pulse Ox 94 L 05/15/17 15:59 - Exam General appearance: The patient is alert, oriented, in no acute distress. HET: Head is normocephalic and atraumatic. Pupils are equal and reactive. Oropharynx is clear without lesions. Neck: Supple without lymphadenopathy. Trachea midline. Heart: S1 S2. Regular rate and rhythm. Lungs: No crackles or wheezes are heard. Abdomen: Soft, mild epigastric tenderness, nondistended with bowel sounds. No peritoneal signs. No palpable organomegaly or masses. Extremities: Normal skin color and turgor. No cyanosis, rash, ulceration, clubbing, or edema. Radial and pedal pulses are 2/4 bilaterally. Neurological: No focal deficits. Strength and sensation are grossly intact. - Labs CBC & Chem 7: 05/16/17 08:03 05/16/17 08:03 Assessment and Plan (1) Epigastric abdominal pain Narrative/Plan: Status post EGD evaluation no evidence of complicated peptic ulcer disease status post biopsies Current Visit: Yes Status: Acute Code(s): R10.13 - EPIGASTRIC PAIN SNOMED Code(s): 31663293 (2) Suicidal ideations Current Visit: Yes Status: Acute Code(s): R45.851 - SUICIDAL IDEATIONS SNOMED Code(s): 8555111 Plan: 1. Discharge per medicine and psychiatry. Recommend Protonix 40 mg daily. Carafate 1 g before meals twice a day may be also benefit to help with her symptoms. Return to office in 2 weeks for reevaluation. Follow with primary care physician as directed. Assessment and plan a care discussed with Dr. Leonardo
[2017-05-18] MEDS: OLANZapine 5 MG TAB PO SCH (09:15)
[2017-05-18] MEDS: PANTOPRAZOLE 40 MG TABLET PO SCH (09:15)
[2017-05-18] MEDS: SUCRALFATE 1 GM TAB PO SCH (09:15)
--- NOTE | 2017-05-28 08:37 | DS ---
DISCHARGE SUMMARY DATE OF ADMISSION: 05/15/2017 DATE OF DISCHARGE: 05/18/2017. ADMISSION/DISCHARGE DIAGNOSES: 1. Major depression, severe, without psychotic features. 2. Marijuana dependence and acute marijuana withdrawal. HISTORY OF PRESENT ILLNESS: The patient is a 31-year-old female. She presented to the ER with significant abdominal pain, anxiety, panic symptoms, crying spells. She was significantly distressed. She had no prior psychiatric hospitalizations. She was on Prozac 10 mg a day and BuSpar 5 mg a day, prescribed by her primary care. She was having increasing problems over 10 days prior to admission. She could not identify immediate stressors. She did acknowledge that she was working long hours. She felt that she had a supportive partner with whom she lives. She noted that in the last 10 days, she was becoming increasingly anxious. She had tightness in her lower chest area. She was sleeping poorly. She had crying spells. She was emotionally over reactive. She acknowledges that both her mother and partner would say that she has long-term problems with the anxiety. She notes that she smokes marijuana on a daily basis and has had no periods off marijuana for the last 18 months. There were no other substance use issues. She was admitted for further evaluation. PAST MEDICAL HISTORY AND PHYSICAL EXAM: As per medical consultation of Dr. Reaves. MENTAL STATUS EXAM: The patient was somewhat restless. Eye contact was fair. She answered questions with brief responses. Thoughts were clear. Affect blunted. Mood depressed she was significantly distressed. There was no indication of thought disorder. Cognition was clear. COURSE OF HOSPITALIZATION: Patient was admitted for comprehensive medical psychiatric and psychosocial evaluation. We engaged the patient in individual and group therapeutic activities. I had an extensive discussion with the patient regarding issues related to marijuana withdrawal as a primary focus of treatment. She was started on Zyprexa 5 mg 3 times a day. The aim of Zyprexa was to help reduce physiologic stress response as it relates to her ongoing anxiety complaints and marijuana withdrawal issues. Her BuSpar and Prozac were not continued. Both were in the low dose and were felt to be noncontributory at this stage of treatment. She was given trazodone 50 mg at bedtime to help with sleep. During her hospitalization, she would come out in the day area. She interacted with others. She was quite pleased that she was able to get a good night's sleep. She attended some groups though avoided others. She underwent EGD and was found to have a hiatal hernia. As her hospitalization progressed, her mood improved. She voiced motivation to work on maintaining abstinence from marijuana. We held a family meeting with the patient and her fiancee as part of discharge planning. The fiancee indicated that she showed less anxiety and a brighter mood. Some of her stomach complaints seem to be resolving. It was felt that the patient and her were able to move a little farther forward in communication issues. The patient was able to productively engage in discharge planning. CONDITION AT DISCHARGE: Patient was stable. Mood was improved. She had a better outlook. She tolerated her medications well. There was no indication of thoughts of harm toward self or others. RECOMMENDATIONS AND FOLLOWUP: Patient is discharged to home. DISCHARGE MEDICATIONS: 1. Zyprexa 5 mg 3 times a day. 2. Desyrel 50 mg at bedtime. 3. Protonix 40 mg a day. 4. Carafate 1 g twice a day. She has a [facility]up [facility]2017 at 10:[address] Leonardo on 05/25/2017 at 1:30. She was referred back to Dr. Miller for primary care followup. MMODL / IJN: [id number] /
== END 2017-05-18 12:34 | disposition home or self-care (01) | DRG 885 ==
LOC: EC 15:56 → 3MHU 20:12
PROVIDERS: ADMIT Psychiatry & Neurology Psychiatry; ATTEND Psychiatry & Neurology Psychiatry
DX: F32.2 Major depressive disorder, single episode, severe without psychotic features (principal); R45.851 Suicidal ideations; F12.288 Cannabis dependence with other cannabis-induced disorder; F41.9 Anxiety disorder, unspecified; K44.9 Diaphragmatic hernia without obstruction or gangrene; R10.13 Epigastric pain; Z79.899 Other long term (current) drug therapy; Z85.41 Personal history of malignant neoplasm of cervix uteri; Z87.891 Personal history of nicotine dependence
CPT/HCPCS: 36415; 74177; 80048; 80053; 80306; 81001; 81025; 82075; 83690; 84443; 85025; 96361; 96374; 99285

== ENCOUNTER 2017-05-17 13:10 | Day surgery (SDC) | payer BC ==
[2017-05-17 12:15] VITALS: TEMP 96.8
[~2017-05-17 13:10] MED LIST: LACTATED RINGERS 1,000 ML IV ONE; LIDOCAINE 1% INJ 10MG/ML (20 ML MDV) ONE; PROPOFOL 10 MG/ML 20 ML VIAL IV ONE
[2017-05-17] MEDS ORDERED: IV FLUID CONTINUATION 1,000 ML IV ONE (13:27)
[2017-05-17 13:29] VITALS: RESP 18
--- NOTE | 2017-05-17 13:36 | P.PCN ---
Date of Procedure: 05/17/17 Procedure(s) Performed: Procedure: Esophagogastroduodenoscopy and biopsy. Preoperative diagnosis: Epigastric pain. Postoperative diagnosis: 1. Small sliding hiatal hernia with no obvious esophagitis or complicated reflux disease. 2. Mild antral gastritis. 3. Multiple biopsies obtained from the duodenum, antrum and esophagus. Preparation sedation: Was provided by anesthesia. Brief clinical history: The patient is a 31-year-old female with a history depression, admitted with suicidal ideations and severe epigastric pain, nausea and vomiting disturbing her sleep and consumption of meals. Epigastric pain has been present for close to 2 weeks. Recently evaluated at PCP office and told her symptoms were related to "anxiety". No alcohol or NSAIDS. No history of similar pains or PUD. Denies hematemesis, hematochezia or melena. CT abdomen and pelvis negative. Pepcid did not have after few days as outpatient. Is not on any new medications was reassured with her symptoms. She has lost 6 pounds. Hemoglobin 15.2. White count 5.1 platelet 236. LFTs unremarkable. Lipase 71. She had no further emesis just dry heaves. The details are summarized in the history and physical and dictated consultations and progress notes. This evaluation is to assess for peptic ulcer disease or other pathology. Procedure: With the patient on her left lateral decubitus position and after informed consent and adequate sedation, I passed the Olympus-GIF 160 video upper endoscope through the cricopharyngeus down the esophagus. GE junction was around 40 cm from the incisors and there was a small sliding hiatal hernia around 1 cm in size. There was no evidence of esophagitis or complicated reflux disease. The endoscope was then passed into the stomach which was insufflated with air and inspected in detail including the retroflex view in the cardia. There was some mottling and erythema in the antrum but no ulcers or erosions. Pyloric channel, duodenal bulb, post bulbar area and descending duodenum appeared within normal limits. Because of her symptoms, I obtained biopsies from the duodenum, antrum and esophagus then the endoscope was withdrawn. The patient tolerated the procedure well. Plan: The patient was reassured. Will await biopsy results and make further plans based on her course and biopsy results.
[2017-05-17 13:47] VITALS: BP 109/72; PULSE 88
== END 2017-05-17 15:05 | disposition psychiatric hospital, planned readmission (93) ==
LOC: ORWHC2ENDO 13:10
DX: K29.70 Gastritis, unspecified, without bleeding (principal); K21.0 Gastro-esophageal reflux disease with esophagitis; K44.9 Diaphragmatic hernia without obstruction or gangrene; Z85.41 Personal history of malignant neoplasm of cervix uteri; Z87.891 Personal history of nicotine dependence; F32.9 Major depressive disorder, single episode, unspecified; R45.851 Suicidal ideations; Z79.899 Other long term (current) drug therapy
CPT/HCPCS: 81025; 88305; 88342; 43239; J2001; J2704

== ENCOUNTER → 2017-05-26 | Outpatient (CLI) | payer BC | END | disposition home or self-care (01) | LOC: LABWHC1 10:54 | PROVIDERS: ATTEND Physician Assistant | DX: R19.7 Diarrhea, unspecified (principal) | CPT/HCPCS: 89055 ==

== ENCOUNTER 2017-09-13 17:01 | Emergency (ER) | payer BC ==
[2017-09-13] MEDS ORDERED: SODIUM CHLORIDE 0.9% 1,000 ML IV STA (17:56)
[2017-09-13] MEDS ORDERED: ORPHENADRINE 30 MG/ML 2 ML VIAL IVP STA (17:56)
[2017-09-13] MEDS ORDERED: KETOROLAC 30 MG/ML 1 ML VIAL IVP STA (17:56)
[2017-09-13] MEDS ORDERED: diphenhydrAMINE 50 MG/ML 1 ML VIAL IVP STA (17:56)
[2017-09-13] MEDS ORDERED: METOCLOPRAMIDE 5 MG/ML 2 ML VIAL IVP STA (17:56)
[2017-09-13 18:46] LABS: Appearance,Urine Clear (Clear); Bilirubin,Urine Negative (Negative); Blood,Urine Negative (Negative); Color,Urine Yellow; Glucose,Urine (UA) Negative (Negative); Ketones,Urine 1+ (Negative); Leukocyte Esterase,Urine Moderate (Negative); Mucus,Urine Rare /hpf; Nitrite,Urine Negative (Negative); Protein,Urine Negative (Negative); RBC,Urine 1 /hpf (0-5); Specific Gravity,Urine 1.011 (1.001-1.035); Squamous Epithelial Cell,Urine 2 /hpf (0-4); Urobilinogen,Urine <2.0 mg/dL (<2.0); WBC,Urine 3 /hpf (0-5)
--- NOTE | 2017-09-13 18:57 | ED ---
Headache HPI - General Chief Complaint: Headache Stated Complaint: Headache Time Seen by Provider: 09/13/17 17:40 Source: RN notes reviewed, old records reviewed Mode of arrival: ambulatory Limitations: no limitations - History of Present Illness Initial Comments: 31-year-old female presents the emergency department today chief complaint of headache. She reports that her migraine headache for the past 2 weeks. She states she's been under a lot of stress lately. Taking Excedrin at home and sumatriptan without any relief. Patient denies any recent fever, chills, shortness of breath, chest pain, back pain, abdominal pain, nausea vomiting, numbness or tingling, dysuria or hematuria, constipation or diarrhea, visual changes, or any other current symptoms - Related Data Home Medications Medication Instructions Recorded Confirmed Naproxen Sodium [Aleve] 880 mg PO DAILY PRN 09/13/17 09/13/17 SUMAtriptan SUCCINATE [Imitrex] 50 mg PO DAILY PRN 09/13/17 09/13/17 Previous Rx's Medication Instructions Recorded OLANZapine [ZyPREXA] 5 mg PO TID #90 tab 05/18/17 Cyclobenzaprine [Flexeril] 10 mg PO TID #12 tab 09/13/17 Ondansetron [Zofran] 4 mg PO Q8HR PRN #12 tab 09/13/17 Allergies Allergy/AdvReac Type Severity Reaction Status Date / Time No Known Allergies Allergy Verified 09/13/17 18:34 Review of Systems ROS Statement: Those systems with pertinent positive or pertinent negative responses have been documented in the HPI. ROS Other: All systems not noted in ROS Statement are negative. Past Medical History Past Medical History: Cancer Additional Past Medical History / Comment(s): history of cervical cancer at age 17, migraines History of Any Multi-Drug Resistant Organisms: None Reported Past Surgical History: No Surgical Hx Reported Additional Past Surgical History / Comment(s): removal of wisdom teeth Past Anesthesia/Blood Transfusion Reactions: No Reported Reaction Past Psychological History: No Psychological Hx Reported Smoking Status: Former smoker Past Alcohol Use History: None Reported Past Drug Use History: Marijuana General Exam - General Exam Comments Initial Comments: 31-year-old female. Alert. Limitations: no limitations General appearance: alert, in no apparent distress Head exam: Present: atraumatic, normocephalic, normal inspection Eye exam: Present: normal appearance, PERRL, EOMI. Absent: scleral icterus, conjunctival injection, periorbital swelling ENT exam: Present: normal exam, mucous membranes moist Neck exam: Present: normal inspection. Absent: tenderness, meningismus, lymphadenopathy Respiratory exam: Present: normal lung sounds bilaterally. Absent: respiratory distress, wheezes, rales, rhonchi, stridor Cardiovascular Exam: Present: regular rate, normal rhythm, normal heart sounds. Absent: systolic murmur, diastolic murmur, rubs, gallop, clicks GI/Abdominal exam: Present: soft, normal bowel sounds. Absent: distended, tenderness, guarding, rebound, rigid Extremities exam: Present: normal inspection, full ROM, normal capillary refill. Absent: tenderness, pedal edema, joint swelling, calf tenderness Back exam: Present: normal inspection Neurological exam: Present: alert, oriented X3, CN II-XII intact Expanded Patient oriented to: Present: person, place, time Speech: Present: fluid speech Cranial nerves: EOM's Intact: Normal, Facial Sensation: Normal Cerebellar function: Finger to Nose: Normal Upper motor neuron: Pronator Drift: Normal Sensory exam: Upper Extremity Light Touch: Normal, Lower Extremity Light Touch: Normal Motor strength exam: RUE: 5, LUE: 5, RLE: 5, LLE: 5 Eye Response: (4) open spontaneously Motor Response: (6) obeys commands Verbal Response: (5) oriented Landers Total: 15 Psychiatric exam: Present: normal affect, normal mood Skin exam: Present: warm, dry, intact, normal color. Absent: rash Course Vital Signs 09/13/17 09/13/17 17:21 19:14 Temperature 98.1 F 98.6 F Pulse Rate 70 62 Respiratory 20 18 Rate Blood Pressure 119/78 103/61 O2 Sat by Pulse 99 100 Oximetry Medical Decision Making - Medical Decision Making 31-year-old female presents with a migraine headache for 2 weeks. Patient has no neurological deficits. She reports on her entire head. Vital signs are stable. Urine hCG is negative. No infection UTI. CT brain was completed. Negative for any acute process. She does have better after receiving migraine cocktail. Will be discharged at this time with prescription for muscle relaxers and Zofran. She can take the medication in combination with Tylenol Motrin. Patient agrees treatment plan will comply. She will follow-up with her PCP. - Lab Data Lab Results 09/13/17 09/13/17 Range/Units 18:30 18:30 Urine Color Yellow Urine Appearance Clear (Clear) Urine pH 6.0 (5.0-8.0) Ur Specific Bern 1.011 (1.001-1.035) Urine Protein Negative (Negative) Urine Glucose (UA) Negative (Negative) Urine Ketones 1+ H (Negative) Urine Blood Negative (Negative) Urine Nitrite Negative (Negative) Urine Bilirubin Negative (Negative) Urine Urobilinogen <2.0 (<2.0) mg/dL Ur Leukocyte Esterase Moderate H (Negative) Urine RBC 1 (0-5) /hpf Urine WBC 3 (0-5) /hpf Ur Squamous Epith Cells 2 (0-4) /hpf Urine Mucus Rare H (None) /hpf Urine HCG, Qual Not Detected (Not Detectd) Disposition Clinical Impression: Headache Disposition: HOME SELF-CARE Condition: Good Instructions: Acute Headache (ED) Additional Instructions: Patient advised follow-up with primary care provider. Return to emergency department if any alarming signs or symptoms occur. Prescriptions: Cyclobenzaprine [Flexeril] 10 mg PO TID #12 tab Ondansetron [Zofran] 4 mg PO Q8HR PRN #12 tab PRN Reason: Nausea Is patient prescribed a controlled substance at d/c from ED?: No If prescribed controlled substance>3 days was MAPS reviewed?: No When asked, does pt state using other controlled substances?: No Referrals: Niki Fritz MD [Primary Care Provider] - 1-2 days
[2017-09-13 19:15] VITALS: BP 103/61; PULSE 62; RESP 18; TEMP 98.6
--- NOTE | 2017-09-13 19:29 | CT ---
EXAMINATION: CT brain wo con DATE AND TIME: 09/13/2017 7:04 PM ORDERING PROVIDER: Raquel Moore CLINICAL INDICATION: Headache ; visual disturbances. TECHNIQUE: Standard departmental protocol. DLP 968 mGy-cm. COMPARISON: None. DESCRIPTION: The calvarium is intact. There is no intracranial hemorrhage. There is no mass or mass e ffect. There is no definite new attenuation defect. Remainder of the intra-axial and extra-axial comp artment examination is unremarkable. The paranasal sinuses, middle ear cavities, and mastoid sinus ai r cells are clear. The orbits are intact. IMPRESSION: NO ACUTE PROCESS.
== END 2017-09-13 19:49 | disposition home or self-care (01) ==
LOC: EC 17:01
DX: R51 Headache (principal); Z85.41 Personal history of malignant neoplasm of cervix uteri; Z87.891 Personal history of nicotine dependence
CPT/HCPCS: 81001; 81025; 70450; 99284; 96374; 96375 ×3; 96361; J1200; J2360; J2765; J1885

== ENCOUNTER 2017-09-26 08:54 | Emergency (ER) | payer BC ==
[2017-09-26] MEDS ORDERED: KETOROLAC 30 MG/ML 1 ML VIAL IVP STA (09:27)
[2017-09-26] MEDS ORDERED: diphenhydrAMINE 50 MG/ML 1 ML VIAL IVP STA (09:27)
[2017-09-26] MEDS ORDERED: METOCLOPRAMIDE 5 MG/ML 2 ML VIAL IVP STA (09:27)
[2017-09-26] MEDS ORDERED: ORPHENADRINE 30 MG/ML 2 ML VIAL IVP STA (09:27)
[2017-09-26] MEDS ORDERED: SODIUM CHLORIDE 0.9% 500 ML IV ONE (09:27)
[2017-09-26] MEDS ORDERED: SODIUM CHLORIDE 0.9% 1,000 ML IV ONE (09:29)
--- NOTE | 2017-09-26 09:29 | ED ---
Headache HPI - General Chief Complaint: Headache Stated Complaint: headache Time Seen by Provider: 09/26/17 09:08 Source: patient, RN notes reviewed Mode of arrival: ambulatory Limitations: no limitations - History of Present Illness Initial Comments: This a 32-year-old female presents emergency Department chief complaint of migraine headache. She states that she's been suffering with headaches for last 5 months. She states that she takes sumatriptan in the past but states he gets a rebound headache. Patient states she was seen here approximately [address] which showed no acute abnormality. Her primary has been attempting to get her an MRI states that her insurance will not cover it. She has not seen a neurologist. She ate states that she has no focal weakness she has had some nausea and vomiting. Denies any fever, chills, neck pain or neck stiffness. She states that it's on the right side right occipital region and stabbing pain that seems to come and go. She denies any photophobia. She denies any fever, chills no URI symptoms. Denies any trauma. - Related Data Home Medications Medication Instructions Recorded Confirmed Naproxen Sodium [Aleve] 880 mg PO DAILY PRN 09/13/17 09/26/17 SUMAtriptan SUCCINATE [Imitrex] 50 mg PO DAILY PRN 09/13/17 09/26/17 Cholecalciferol (Vitamin D3) 2,000 unit PO DAILY 09/26/17 09/26/17 [Vitamin D3] Previous Rx's Medication Instructions Recorded Butalb/APAP/Caff 50-325-40Mg 1 tab PO Q4H PRN #14 tablet 09/26/17 [Fioricet 50-325-40] Allergies Allergy/AdvReac Type Severity Reaction Status Date / Time No Known Allergies Allergy Verified 09/26/17 09:36 Review of Systems ROS Statement: Those systems with pertinent positive or pertinent negative responses have been documented in the HPI. ROS Other: All systems not noted in ROS Statement are negative. Past Medical History Past Medical History: Cancer Additional Past Medical History / Comment(s): history of cervical cancer at age 17, migraines History of Any Multi-Drug Resistant Organisms: None Reported Past Surgical History: No Surgical Hx Reported Additional Past Surgical History / Comment(s): removal of wisdom teeth Past Anesthesia/Blood Transfusion Reactions: No Reported Reaction Past Psychological History: No Psychological Hx Reported Smoking Status: Former smoker Past Alcohol Use History: None Reported Past Drug Use History: Marijuana General Exam General appearance: alert, in no apparent distress Head exam: Present: atraumatic, normocephalic, normal inspection, other (No rash noted) Eye exam: Present: normal appearance, PERRL, EOMI. Absent: scleral icterus, conjunctival injection, periorbital swelling ENT exam: Present: normal exam, normal oropharynx, mucous membranes moist, TM's normal bilaterally, normal external ear exam Neck exam: Present: normal inspection, full ROM. Absent: tenderness, meningismus, lymphadenopathy Respiratory exam: Present: normal lung sounds bilaterally. Absent: respiratory distress, wheezes, rales, rhonchi, stridor Cardiovascular Exam: Present: regular rate, normal rhythm, normal heart sounds. Absent: systolic murmur, diastolic murmur, rubs, gallop, clicks Extremities exam: Present: normal inspection, full ROM, normal capillary refill. Absent: tenderness, pedal edema, joint swelling, calf tenderness Neurological exam: Present: alert, oriented X3, CN II-XII intact, reflexes normal, other (Wtqbkh-[id number] intact bilaterally without or shooting). Absent: motor sensory deficit Skin exam: Present: warm, dry, intact, normal color. Absent: rash Course Vital Signs 09/26/17 09:05 Temperature 97.8 F Pulse Rate 84 Respiratory 18 Rate Blood Pressure 152/79 O2 Sat by Pulse 99 Oximetry Medical Decision Making - Medical Decision Making 32-year-old female presents department for headache. She's been having ongoing headaches for last 5-6 months. Patient has symptoms consistent with occipital neuralgia. She had recent CT which was unremarkable. She does feel improved after IV medications here. Patient is advised follow-up with neurologist. Return parameters were discussed. Disposition Clinical Impression: Headache, Occipital neuralgia Disposition: HOME SELF-CARE Condition: Stable Instructions: Acute Headache (ED) Additional Instructions: Please return to the Emergency Department if symptoms worsen or any other concerns. Prescriptions: Butalb/APAP/Caff 50-325-40Mg [Fioricet 50-325-40] 1 tab PO Q4H PRN #14 tablet PRN Reason: Headache Is patient prescribed a controlled substance at d/c from ED?: Yes When asked, does pt state using other controlled substances?: No If prescribed controlled substance>3 days was MAPS reviewed?: Prescribed <3 Days If opioid is for acute pain is fill amount 7 days or less?: Yes Referrals: Niki Fritz MD [Primary Care Provider] - 1-2 days Amber Batista MD [STAFF PHYSICIAN] - 1-2 days Time of Disposition: 11:32
[2017-09-26] MEDS ORDERED: BUTALB/APAP/CAFF 50-325-40MG TAB PO STA (11:52)
[2017-09-26 12:03] VITALS: BP 106/68; PULSE 71; RESP 16; TEMP 98
== END 2017-09-26 12:02 | disposition home or self-care (01) ==
LOC: EC 08:54
DX: M54.81 Occipital neuralgia (principal); Z79.899 Other long term (current) drug therapy; Z87.891 Personal history of nicotine dependence
CPT/HCPCS: 99284; 96374; 96375 ×3; 96361; J1200; J2360; J2765; J1885

== ENCOUNTER 2017-10-03 08:28 | Observation (INO) | payer BC ==
[2017-10-03] MEDS ORDERED: METOCLOPRAMIDE 5 MG/ML 2 ML VIAL IVP STA (08:44)
[2017-10-03] MEDS ORDERED: diphenhydrAMINE 50 MG/ML 1 ML VIAL IVP STA (08:44)
[2017-10-03] MEDS ORDERED: MORPHINE SULFATE 2 MG/ML SYRINGE IVP STA (08:44)
[2017-10-03] MEDS ORDERED: SODIUM CHLORIDE 0.9% 1,000 ML IV STA ×2 (08:44→11:39)
[2017-10-03] MEDS ORDERED: CAFFEINE-SODIUM BENZOATE 500 MG in SODIUM CHLORIDE 0.9% 1,000 ML IVPB ONE (08:45)
--- NOTE | 2017-10-03 08:49 | ED ---
General Adult HPI - General Source: patient, family, RN notes reviewed Mode of arrival: wheelchair Limitations: physical limitation <Wayne Jimenez - Last Filed: 10/03/17 14:21> <Vishal Mccord - Last Filed: 10/03/17 14:25> - General Chief complaint: Headache Stated complaint: Headache Time Seen by Provider: 10/03/17 08:41 - History of Present Illness Initial comments: Patient's a 32-year-old female presented to the emergency room today with a chief complaint of increased headache. She does admit that she had a spinal tap performed 2 days ago at [facility]. She states she is being worked up for possible MS. She states since getting up off the bed in the hospital 2 days ago she's been having headaches anytime she sits up or stands up. She states she is much better when she lays down. She does admit to some chronic low back pain. She admits to nausea and some vomiting. Denies any other complaints or symptoms at this time. Patient denies any recent fever, chills, shortness of breath, chest pain, back pain, abdominal pain, numbness or tingling, dysuria or hematuria, constipation, headaches or visual changes, or any other complaints. (Wayne Jimenez) - Related Data Home Medications Medication Instructions Recorded Confirmed Naproxen Sodium [Aleve] 880 mg PO DAILY PRN 09/13/17 10/03/17 SUMAtriptan SUCCINATE [Imitrex] 50 mg PO DAILY PRN 09/13/17 10/03/17 Cholecalciferol (Vitamin D3) 2,000 unit PO DAILY 09/26/17 10/03/17 [Vitamin D3] Topiramate [Topamax] 25 mg PO BID 10/03/17 10/03/17 Previous Rx's Medication Instructions Recorded Butalb/APAP/Caff 50-325-40Mg 1 tab PO Q4H PRN #14 tablet 09/26/17 [Fioricet 50-325-40] Allergies Allergy/AdvReac Type Severity Reaction Status Date / Time No Known Allergies Allergy Verified 10/03/17 09:23 Review of Systems ROS Other: All systems not noted in ROS Statement are negative. <Wayne Jimenez - Last Filed: 10/03/17 14:21> ROS Other: All systems not noted in ROS Statement are negative. <Vishal Mccord - Last Filed: 10/03/17 14:25> ROS Statement: Those systems with pertinent positive or pertinent negative responses have been documented in the HPI. Past Medical History Past Medical History: Cancer Additional Past Medical History / Comment(s): history of cervical cancer at age 17, migraines History of Any Multi-Drug Resistant Organisms: None Reported Past Surgical History: No Surgical Hx Reported Additional Past Surgical History / Comment(s): removal of wisdom teeth Past Anesthesia/Blood Transfusion Reactions: No Reported Reaction Past Psychological History: No Psychological Hx Reported Smoking Status: Former smoker Past Alcohol Use History: None Reported Past Drug Use History: Marijuana <Wayne Jimenez - Last Filed: 10/03/17 14:21> General Exam Limitations: physical limitation <Wayne Jimenez - Last Filed: 10/03/17 14:21> <Vishal Mccord - Last Filed: 10/03/17 14:25> - General Exam Comments Initial Comments: General: The patient is awake and alert. Eye: Pupils are equal, round and reactive to light, extra-ocular movements are intact. No nystagmus. There is normal conjunctiva bilaterally. No signs of icterus. Ears, nose, mouth and throat: There are moist mucous membranes and no oral lesions. Neck: The neck is supple, there is no tenderness or JVD. Cardiovascular: There is a regular rate and rhythm. No murmur, rub or gallop is appreciated. Respiratory: Lungs are clear to auscultation, respirations are non-labored, breath sounds are equal. No wheezes, stridor, rales, or rhonchi. Musculoskeletal: Normal ROM, no tenderness. Strength 5/5. Sensation intact. Neurological: A&O x 3. CN II-XII intact, There are no obvious motor or sensory deficits. Coordination appears grossly intact. Speech is normal. Skin: Skin is warm and dry and no rashes or lesions are noted. Psychiatric: Cooperative, appropriate mood & affect, normal judgment. (Wayne Jimenez) Course <Wayne Jimenez - Last Filed: 10/03/17 14:21> <Vishal Mccord - Last Filed: 10/03/17 14:25> Vital Signs 10/03/17 10/03/17 08:39 12:51 Temperature 98.2 F Pulse Rate 97 74 Respiratory 18 18 Rate Blood Pressure 144/97 124/81 O2 Sat by Pulse 98 99 Oximetry - Reevaluation(s) Reevaluation #1: 10/03/17 12:57 PA supervision: I did personally do a [id number] evaluation the patient she has failed IV medication and fluids with respect to resolving her headache 2 days status post a lumbar puncture. I did discuss the case with Dr. Moreno from anesthesia who will evaluate the patient for a blood patch (Vishal Mccord) Reevaluation #2: 10/03/17 14:25 I did discuss findings with the patient. Anesthesia did recommend to the patient she is scheduled for blood patch tomorrow morning. She will be admitted for observation tonight I did discuss the case with Dr. Reaves (Vishal Mccord) Disposition Is patient prescribed a controlled substance at d/c from ED?: No Time of Disposition: 14:22 <Wayne Jimenez - Last Filed: 10/03/17 14:21> <Vishal Mccord - Last Filed: 10/03/17 14:25> Clinical Impression: Spinal puncture headache Disposition: ADMITTED IP TO THIS HOSP Condition: Stable Referrals: Niki Fritz MD [Primary Care Provider] - 1-2 days
[2017-10-03] MEDS ORDERED: NALOXONE 0.4 MG/ML 1 ML VIAL IV PRN (14:22)
[2017-10-03] MEDS ORDERED: SODIUM CHLORIDE 0.9% 1,000 ML IV ONE (14:22)
[2017-10-03] MEDS ORDERED: ONDANSETRON 4 MG/2 ML VIAL IVP PRN (14:22)
[2017-10-03] MEDS ORDERED: LORazepam 2 MG/ML INJ IV PRN (14:22)
[2017-10-03] MEDS: HYDROcodone/APAP 5-325MG 1 EACH TAB PO PRN (21:37)
[2017-10-03] MEDS: ACETAMINOPHEN TAB 325 MG TAB PO PRN (21:39)
--- NOTE | 2017-10-03 23:57 | P.PAINCN ---
History of Present Illness - Reason for Consult Consult date: 10/03/17 Postdural puncture headache Requesting physician: Donita Reaves - Chief Complaint Headache, neck pain - History of Present Illness This is a 32-year-old female who presented to [facility] complaint of diffuse headache and neck pain. Patient had a lumbar puncture performed at [facility] 2 days ago as she is currently being worked up for potential multiple sclerosis. Patient states that yesterday afternoon, nearly 24 hours after her lumbar puncture she developed severe headaches involving the bifrontal part of her head. She also states that she has severe neck stiffness , pulling, and soreness. She also admits to being slightly nauseated, has not vomited, but denies tinnitis, as well as hyperacusis and hypoacusis. Patient states the pain is a 10 on a 10 severity, and worse with sitting up and improved with lying flat. She is tried conservative therapy such as IV hydration, caffeine, and nonsteroidal anti-inflammatories. Patient denies any visual changes, altered mental status, or ambulatory imbalances. Review of Systems 14 point review of systems performed and was negative except as mentioned per HPI Past Medical History Past Medical History: Cancer, GERD/Reflux Additional Past Medical History / Comment(s): Pt recently worked up for multiple sclerosis thru [facility]-she states she has 2 brain lesions and a cervical lesion and has had right sided weakness upper and lower extremities-placed on steroids and it has resolved and had a spinal tap 2 days ago, history of cervical cancer at age 17 with surgery, migraines, small hiatal hernia. History of Any Multi-Drug Resistant Organisms: None Reported Past Surgical History: No Surgical Hx Reported Additional Past Surgical History / Comment(s): Colposcopy, EGD, removal of wisdom teeth Past Anesthesia/Blood Transfusion Reactions: No Reported Reaction Smoking Status: Former smoker - Past Family History Father Family Medical History: Hypertension Mother Family Medical History: Rheumatoid Arthritis (RA) Medications and Allergies Home Medications Medication Instructions Recorded Confirmed Type Naproxen Sodium [Aleve] 880 mg PO DAILY PRN 09/13/17 10/03/17 History SUMAtriptan SUCCINATE [Imitrex] 50 mg PO DAILY PRN 09/13/17 10/03/17 History Butalb/APAP/Caff 50-325-40Mg 1 tab PO Q4H PRN #14 tablet 05/30/18 06/06/18 Rx [Fioricet 50-325-40] Cholecalciferol (Vitamin D3) 2,000 unit PO DAILY 09/26/17 10/03/17 History [Vitamin D3] Topiramate [Topamax] 25 mg PO BID 10/03/17 10/03/17 History Allergies Allergy/AdvReac Type Severity Reaction Status Date / Time No Known Allergies Allergy Verified 10/03/17 09:23 Physical Exam Vitals: Vital Signs Temp Pulse Pulse Resp BP BP BP 10/03/17 20:25 98.3 F 72 18 105/67 10/03/17 17:44 75 16 116/77 10/03/17 17:30 77 16 121/79 10/03/17 15:49 98.2 F 67 16 81/54 10/03/17 15:33 97.9 F 78 17 106/72 10/03/17 14:41 99.3 F 81 17 128/76 10/03/17 14:29 97.9 F 71 16 113/73 10/03/17 12:51 74 18 124/81 10/03/17 08:39 98.2 F 97 18 144/97 Pulse Ox 10/03/17 20:25 99 10/03/17 17:44 98 10/03/17 17:30 98 10/03/17 15:49 98 10/03/17 15:33 98 10/03/17 14:41 98 10/03/17 14:29 99 10/03/17 12:51 99 10/03/17 08:39 98 Intake and Output 10/03/17 10/03/17 10/04/17 14:59 22:59 06:59 Other: # Voids 1 Weight 69.853 kg - Constitutional General appearance: mild distress - Neck Neck: rigidity (Reduced range of motion with lateral rotation bilateral) - Respiratory Respiratory: bilateral: CTA, other (Nonlabored respirations) - Cardiovascular Rhythm: regular - Neurologic Neurologic: focal deficits - Psychiatric Psychiatric: A&O x's 3, appropriate affect, intact judgment & insight Assessment and Plan Assessment: 1. Post dural puncture headache Plan: 1. Patient has tried and failed conservative therapy with IV hydration, caffeine, and nonsteroidal anti-inflammatory medications. I discussed with the patient lumbar epidural blood patch. I discussed the risks and benefits of performing such procedure which include infection, bleeding, and accidental dural puncture which could potentially prolong her current signs and symptoms. Patient wishes to proceed with a lumbar epidural blood patch. We'll transport her to the postanesthesia recovery unit in order to perform this procedure. 2. Continue with IV hydration, caffeine and when necessary pain medications for headache. PQRS Measure Charge Sheet PQRS Narrative: Smoking Status Former smoker Blood Pressure [Right Arm] 105/67 Blood Pressure [Left Arm] 81/54 Blood Pressure 106/72 Pain Intensity [Head] 2 Pain Intensity 7 Pain Scale Used Numeric (1 - 10) Scale Used Numeric (1 - 10) Home Medications: Ambulatory Orders Naproxen Sodium [Aleve] 880 mg PO DAILY PRN 09/13/17 SUMAtriptan SUCCINATE [Imitrex] 50 mg PO DAILY PRN 09/13/17 Butalb/APAP/Caff 50-325-40Mg [Fioricet 50-325-40] 1 tab PO Q4H PRN #14 tablet Cholecalciferol (Vitamin D3) [Vitamin D3] 2,000 unit PO DAILY 09/26/17 Topiramate [Topamax] 25 mg PO BID 10/03/17
--- NOTE | 2017-10-04 00:05 | P.PCN ---
Date of Procedure: 10/03/17 Preoperative Diagnosis: Post dural puncture headache Postoperative Diagnosis: Postdural puncture headache Procedure(s) Performed: Lumbar epidural blood patch Anesthesia: none Condition: stable Disposition: floor Description of Procedure: Procedure: Lumbar epidural blood patch. Preoperative diagnosis: Post Dural puncture headache. Postoperative diagnoses: Post Dural puncture headache. Indication for the procedure: patient developed headache after lumbar puncture and headache persists in spite of conservative treatment, there is no focal neurological deficit, no fever. headache worse with sitting and standing position, and improved with lying supine, for this reason patient is a good candidate for epidural blood patch. Anesthesia: none Complications: none. Description of the procedure Back lumbar area prepped with Betadine 3 times, then drape applied the local infiltration of the skin and subcutaneous tissue with lidocaine 1% 3 mL at L4- L5 interlaminar space then a 18-gauge Tuohy needle advanced slowly until loss or resistance was met at 4.5 cm. Additionally, a 20-gauge IV needle was inserted into the left antecubital and 20 ML of blood was taken from the patient , and injected in the epidural space after negative aspiration for heme or CSF. a total of 15 mL's blood was injected until complete resolution of patient's headache. There was no paresthesia then the needle removed intact the skin cleaned and band aid applied and patient discharged back to the floor in stable condition
[2017-10-04] MEDS: HYDROcodone/APAP 5-325MG 1 EACH TAB PO PRN ×2 (05:56→10:02)
[2017-10-04] MEDS: ACETAMINOPHEN TAB 325 MG TAB PO PRN (05:57)
[2017-10-04 08:10] VITALS: BP 120/83; PULSE 81; RESP 20; TEMP 98
[2017-10-04 08:37] VITALS: BMI 25.6
--- NOTE | 2017-10-04 11:38 | P.HPIM ---
History of Present Illness H&P Date: 10/04/17 Chief Complaint: Severe headache This is a 32-year-old female who presented to the emergency room with persistent and severe headache. Patient has been evaluated at [facility] for possible multiple sclerosis. She had an abnormal MRI and subsequently was scheduled for a lumbar puncture. After her lumbar puncture, patient started having severe and persistent headache that she rates as 10 out of 10 in severity mostly in the frontal area. This was associated with nausea but no vomiting. No dizziness or lightheadedness. Patient was seen and evaluated by pain management and underwent a lumbar epidural blood patch with significant improvement in her headache. She is awake and alert today. She is rating her headache as 2 out of 10. No more nausea. She is requesting to be discharged home. She will be given prescription for Motrin to be used as needed. She will follow-up with her neurologist at [facility] as directed. Review of Systems Review of system: 14 points review of systems were obtained and were negative except to what were mentioned in the HPI. Past Medical History Past Medical History: Cancer, GERD/Reflux Additional Past Medical History / Comment(s): Pt recently worked up for multiple sclerosis thru [facility]-she states she has 2 brain lesions and a cervical lesion and has had right sided weakness upper and lower extremities-placed on steroids and it has resolved and had a spinal tap 2 days ago, history of cervical cancer at age 17 with surgery, migraines, small hiatal hernia. History of Any Multi-Drug Resistant Organisms: None Reported Past Surgical History: No Surgical Hx Reported Additional Past Surgical History / Comment(s): Colposcopy, EGD, removal of wisdom teeth Past Anesthesia/Blood Transfusion Reactions: No Reported Reaction Smoking Status: Former smoker - Past Family History Father Family Medical History: Hypertension Mother Family Medical History: Rheumatoid Arthritis (RA) Medications and Allergies Home Medications Medication Instructions Recorded Confirmed Type Naproxen Sodium [Aleve] 880 mg PO DAILY PRN 09/13/17 10/03/17 History SUMAtriptan SUCCINATE [Imitrex] 50 mg PO DAILY PRN 09/13/17 10/03/17 History Butalb/APAP/Caff 50-325-40Mg 1 tab PO Q4H PRN #14 tablet 09/26/17 10/03/17 Rx [Fioricet 50-325-40] Cholecalciferol (Vitamin D3) 2,000 unit PO DAILY 09/26/17 10/03/17 History [Vitamin D3] Topiramate [Topamax] 25 mg PO BID 10/03/17 10/03/17 History Allergies Allergy/AdvReac Type Severity Reaction Status Date / Time No Known Allergies Allergy Verified 10/03/17 09:23 Physical Exam Vitals: Vital Signs Temp Pulse Pulse Resp BP BP BP 10/04/17 07:50 98 F 81 20 120/83 10/04/17 00:04 98.1 F 64 16 106/69 10/03/17 20:25 98.3 F 72 18 105/67 10/03/17 17:44 75 16 116/77 10/03/17 17:30 77 16 121/79 10/03/17 15:49 98.2 F 67 16 81/54 10/03/17 15:33 97.9 F 78 17 106/72 10/03/17 14:41 99.3 F 81 17 128/76 10/03/17 14:29 97.9 F 71 16 113/73 10/03/17 12:51 74 18 124/81 Pulse Ox 10/04/17 07:50 97 10/04/17 00:04 97 10/03/17 20:25 99 10/03/17 17:44 98 10/03/17 17:30 98 10/03/17 15:49 98 10/03/17 15:33 98 10/03/17 14:41 98 10/03/17 14:29 99 10/03/17 12:51 99 Intake and Output 10/03/17 10/04/17 10/04/17 22:59 06:59 14:59 Other: Voiding Method Toilet # Voids 1 1 Weight 69.853 kg General: The patient is awake and alert, in no distress Eye: there is normal conjunctiva bilaterally. Neck: The neck is supple, there is no JVD. Cardiovascular: Normal S1-S2, no S3-S4, no murmurs. Respiratory: Lungs clear to auscultation bilaterally Gastrointestinal: Abdomen is soft, nontender Musculoskeletal: There is no pedal edema. Neurological:. Speech is normal. Skin: Skin is warm and dry Thrombosis Risk Factor Assmnt - Choose All That Apply Any of the Below Risk Factors Present?: Yes Other Risk Factors: Yes Each Risk Factor Represents 2 Points: Malignancy Other congenital or acquired thrombophilia - If yes, enter type in comment: No Thrombosis Risk Factor Assessment Total Risk Factor Score: 2 Thrombosis Risk Factor Assessment Level: Low Risk Assessment and Plan Assessment: This is a 32-year-old female who presented to the emergency room with persistent and severe headache. Patient has been evaluated at [facility] for possible multiple sclerosis. She had an abnormal MRI and subsequently was scheduled for a lumbar puncture. After her lumbar puncture, patient started having severe and persistent headache that she rates as 10 out of 10 in severity mostly in the frontal area. This was associated with nausea but no vomiting. No dizziness or lightheadedness. Patient was seen and evaluated by pain management and underwent a lumbar epidural blood patch with significant improvement in her headache. She is awake and alert today. She is rating her headache as 2 out of 10. No more nausea. She is requesting to be discharged home. She will be given prescription for Motrin to be used as needed. She will follow-up with her neurologist at [facility] as directed.
== END 2017-10-04 13:24 | disposition home or self-care (01) ==
LOC: EC 08:28 → 6PED 14:24
PROVIDERS: ADMIT Internal Medicine; ATTEND Internal Medicine
DX: G97.1 Other reaction to spinal and lumbar puncture (principal); Y84.4 Aspiration of fluid as the cause of abnormal reaction of the patient, or of later complication, without mention of misadventure at the time of the procedure; K21.9 Gastro-esophageal reflux disease without esophagitis; G89.29 Other chronic pain; M54.5 Low back pain; G43.909 Migraine, unspecified, not intractable, without status migrainosus; Z79.899 Other long term (current) drug therapy; Z85.41 Personal history of malignant neoplasm of cervix uteri; Z87.891 Personal history of nicotine dependence; Z82.49 Family history of ischemic heart disease and other diseases of the circulatory system; Z82.61 Family history of arthritis
CPT/HCPCS: 96365 ×2; 96375 ×5; 96361 ×5; 99284 ×2; 62273; G0378 ×2; J1200; J2765; J2405; J2270

== ENCOUNTER 2017-10-11 07:58 | Inpatient (IN) | payer BC ==
[2017-10-11] MEDS ORDERED: MORPHINE SULFATE 2 MG/ML SYRINGE IVP STA (08:32)
[2017-10-11] MEDS ORDERED: METOCLOPRAMIDE 5 MG/ML 2 ML VIAL IVP STA (08:32)
[2017-10-11] MEDS ORDERED: SODIUM CHLORIDE 0.9% 1,000 ML IV STA (08:32)
--- NOTE | 2017-10-11 08:35 | ED ---
General Adult HPI - General Chief complaint: Headache Stated complaint: Fever, Head Pain Time Seen by Provider: 10/11/17 08:09 Source: patient, RN notes reviewed, old records reviewed Mode of arrival: ambulatory Limitations: no limitations - History of Present Illness Initial comments: Patient is a pleasant 32-year-old female presenting to the emergency department with back pain and headaches. Patient states she had lumbar puncture done around 12 days ago. Patient had a blood patch done 2 days following this. Patient has had continued headache since that time. Patient states the majority of her discomfort is actually in the lower back. Patient states this is episodic. Patient states sometimes position changes to make it worse. Patient states discomfort is in the lumbar spine but seemed to shoot towards the neck and caused headache as well. Discomfort continues somewhat severe. Patient has had low-grade temperature up to 99 for the past several days, last was yesterday. Patient does have a history of some chronic headaches and has been previously evaluated for this. Patient has had previous MRI. - Related Data Home Medications Medication Instructions Recorded Confirmed Naproxen Sodium [Aleve] 880 mg PO DAILY PRN 09/13/17 10/11/17 SUMAtriptan SUCCINATE [Imitrex] 50 mg PO DAILY PRN 09/13/17 10/11/17 Cholecalciferol (Vitamin D3) 2,000 unit PO DAILY 09/26/17 10/11/17 [Vitamin D3] Topiramate [Topamax] 25 mg PO BID 10/03/17 10/11/17 HYDROcodone/APAP 5-325MG [[place] 1 tab PO Q6HR PRN 10/11/17 10/11/17 5-325] Previous Rx's Medication Instructions Recorded Butalb/APAP/Caff 50-325-40Mg 1 tab PO Q4H PRN #14 tablet 09/26/17 [Fioricet 50-325-40] Allergies Allergy/AdvReac Type Severity Reaction Status Date / Time No Known Allergies Allergy Verified 10/11/17 08:53 Review of Systems ROS Statement: Those systems with pertinent positive or pertinent negative responses have been documented in the HPI. ROS Other: All systems not noted in ROS Statement are negative. Constitutional: Reports: fever (Up to 99), chills Eyes: Denies: eye pain ENT: Denies: ear pain Respiratory: Denies: cough Cardiovascular: Denies: chest pain Endocrine: Denies: fatigue Gastrointestinal: Denies: abdominal pain Genitourinary: Denies: dysuria Musculoskeletal: Reports: as per HPI, back pain Skin: Denies: rash Neurological: Reports: as per HPI, headache. Denies: weakness, confusion Past Medical History Past Medical History: Cancer, GERD/Reflux Additional Past Medical History / Comment(s): Pt recently worked up for multiple sclerosis thru [facility]-she states she has 2 brain lesions and a cervical lesion and has had right sided weakness upper and lower extremities-placed on steroids and it has resolved and had a spinal tap 2 days ago, history of cervical cancer at age 17 with surgery, migraines, small hiatal hernia. MS History of Any Multi-Drug Resistant Organisms: None Reported Past Surgical History: No Surgical Hx Reported Additional Past Surgical History / Comment(s): Colposcopy, EGD, removal of wisdom teeth Past Anesthesia/Blood Transfusion Reactions: No Reported Reaction Past Psychological History: No Psychological Hx Reported Smoking Status: Former smoker Past Alcohol Use History: None Reported Past Drug Use History: Marijuana - Past Family History Father Family Medical History: Hypertension Mother Family Medical History: Rheumatoid Arthritis (RA) General Exam Limitations: no limitations General appearance: alert, in no apparent distress Head exam: Present: atraumatic Eye exam: Present: normal appearance, PERRL, EOMI. Absent: nystagmus ENT exam: Present: normal oropharynx Neck exam: Present: normal inspection, full ROM. Absent: meningismus Respiratory exam: Present: normal lung sounds bilaterally Cardiovascular Exam: Present: regular rate, normal rhythm GI/Abdominal exam: Present: soft. Absent: tenderness Neurological exam: Present: alert, CN II-XII intact. Absent: motor sensory deficit Expanded Neurological exam: Present: protecting the airway Speech: Present: fluid speech Cranial nerves: EOM's Intact: Normal, Facial Sensation: Normal Sensory exam: Upper Extremity Light Touch: Normal, Lower Extremity Light Touch: Normal Motor strength exam: RUE: 5, LUE: 5, RLE: 5, LLE: 5 Eye Response: (4) open spontaneously Motor Response: (6) obeys commands Verbal Response: (5) oriented Psychiatric exam: Present: normal affect, normal mood Skin exam: Present: normal color Course Vital Signs 10/11/17 10/11/17 08:01 09:56 Temperature 98.1 F Pulse Rate 90 80 Respiratory 18 18 Rate Blood Pressure 116/84 107/77 O2 Sat by Pulse 99 100 Oximetry Medical Decision Making - Medical Decision Making Patient reevaluated and somewhat improved. Patient updated on results and plan. Case was discussed in detail with Dr. Reaves, who will admit for Dr. Fritz. Consults will be placed for anesthesia. He also request consult with Dr. Riojas. - Lab Data Result diagrams: 10/11/17 08:50 10/11/17 08:50 Lab Results 10/11/17 10/11/17 10/11/17 Range/Units 08:50 08:50 08:50 WBC 8.4 (3.8-10.6) k/uL RBC 5.20 (3.80-5.40) m/uL Hgb 15.8 (11.4-16.0) gm/dL Hct 46.7 H (34.0-46.0) % MCV 89.8 (80.0-100.0) fL MCH 30.4 (25.0-35.0) pg MCHC 33.8 (31.0-37.0) g/dL RDW 12.3 (11.5-15.5) % Plt Count 240 (150-450) k/uL Neutrophils % 75 % Lymphocytes % 18 % Monocytes % 4 % Eosinophils % 1 % Basophils % 0 % Neutrophils # 6.3 (1.3-7.7) k/uL Lymphocytes # 1.5 (1.0-4.8) k/uL Monocytes # 0.4 (0-1.0) k/uL Eosinophils # 0.1 (0-0.7) k/uL Basophils # 0.0 (0-0.2) k/uL PT 9.7 (9.0-12.0) sec INR 1.0 (<1.2) APTT 25.0 (22.0-30.0) sec Sodium 139 (137-145) mmol/L Potassium 3.9 (3.5-5.1) mmol/L Chloride 103 (98-107) mmol/L Carbon Dioxide 23 (22-30) mmol/L Anion Gap 13 mmol/L BUN 9 (7-17) mg/dL Creatinine 0.62 (0.52-1.04) mg/dL Est GFR (CKD-EPI)AfAm >90 (>60 ml/min/1.73 sqM) Est GFR (CKD-EPI)NonAf >90 (>60 ml/min/1.73 sqM) Glucose 101 H (74-99) mg/dL Calcium 9.3 (8.4-10.2) mg/dL Total Bilirubin 0.5 (0.2-1.3) mg/dL AST 12 L (14-36) U/L ALT 25 (9-52) U/L Alkaline Phosphatase 57 (38-126) U/L Total Protein 7.0 (6.3-8.2) g/dL Albumin 4.3 (3.5-5.0) g/dL Urine Color Urine Appearance (Clear) Urine pH (5.0-8.0) Ur Specific [place] (1.001-1.035) Urine Protein (Negative) Urine Glucose (UA) (Negative) Urine Ketones (Negative) Urine Blood (Negative) Urine Nitrite (Negative) Urine Bilirubin (Negative) Urine Urobilinogen (<2.0) mg/dL Ur Leukocyte Esterase (Negative) Urine RBC (0-5) /hpf Urine WBC (0-5) /hpf Ur Squamous Epith Cells (0-4) /hpf Urine Mucus (None) /hpf 10/11/17 Range/Units 08:50 WBC (3.8-10.6) k/uL RBC (3.80-5.40) m/uL Hgb (11.4-16.0) gm/dL Hct (34.0-46.0) % MCV (80.0-100.0) fL MCH (25.0-35.0) pg MCHC (31.0-37.0) g/dL RDW (11.5-15.5) % Plt Count (150-450) k/uL Neutrophils % % Lymphocytes % % Monocytes % % Eosinophils % % Basophils % % Neutrophils # (1.3-7.7) k/uL Lymphocytes # (1.0-4.8) k/uL Monocytes # (0-1.0) k/uL Eosinophils # (0-0.7) k/uL Basophils # (0-0.2) k/uL PT (9.0-12.0) sec INR (<1.2) APTT (22.0-30.0) sec Sodium (137-145) mmol/L Potassium (3.5-5.1) mmol/L Chloride (98-107) mmol/L Carbon Dioxide (22-30) mmol/L Anion Gap mmol/L BUN (7-17) mg/dL Creatinine (0.52-1.04) mg/dL Est GFR (CKD-EPI)AfAm (>60 ml/min/1.73 sqM) Est GFR (CKD-EPI)NonAf (>60 ml/min/1.73 sqM) Glucose (74-99) mg/dL Calcium (8.4-10.2) mg/dL Total Bilirubin (0.2-1.3) mg/dL AST (14-36) U/L ALT (9-52) U/L Alkaline Phosphatase (38-126) U/L Total Protein (6.3-8.2) g/dL Albumin (3.5-5.0) g/dL Urine Color Light Yellow Urine Appearance Cloudy H (Clear) Urine pH 6.5 (5.0-8.0) Ur Specific [place] 1.010 (1.001-1.035) Urine Protein Negative (Negative) Urine Glucose (UA) Negative (Negative) Urine Ketones Negative (Negative) Urine Blood Negative (Negative) Urine Nitrite Negative (Negative) Urine Bilirubin Negative (Negative) Urine Urobilinogen <2.0 (<2.0) mg/dL Ur Leukocyte Esterase Small H (Negative) Urine RBC 1 (0-5) /hpf Urine WBC 2 (0-5) /hpf Ur Squamous Epith Cells 5 H (0-4) /hpf Urine Mucus Rare H (None) /hpf Disposition Clinical Impression: Headache, Low back pain Disposition: ADMITTED IP TO THIS [facility] Referrals: Niki Fritz MD [Primary Care Provider] - 1-2 days Decision Time: 10:21
[2017-10-11 09:04] LABS: Basophils % (A) 0 %; Eosinophils # (A) 0.1 k/uL (0-0.7); Eosinophils % (A) 1 %; HCT 46.7 % (34.0-46.0); HGB 15.8 gm/dL (11.4-16.0); Lymphocytes # (A) 1.5 k/uL (1.0-4.8); Lymphocytes % (A) 18 %; MCH 30.4 pg (25.0-35.0); MCHC 33.8 g/dL (31.0-37.0); MCV 89.8 fL (80.0-100.0); Mean Platelet Volume 6.5; Monocytes # (A) 0.4 k/uL (0-1.0); Monocytes % (A) 4 %; Neutrophils # (A) 6.3 k/uL (1.3-7.7); Neutrophils % (A) 75 %; Platelet Count 240 k/uL (150-450); RDW 12.3 % (11.5-15.5); WBC 8.4 k/uL (3.8-10.6)
[2017-10-11 09:08] LABS: Appearance,Urine Cloudy (Clear); Bilirubin,Urine Negative (Negative); Blood,Urine Negative (Negative); Color,Urine Light Yellow; Glucose,Urine (UA) Negative (Negative); Ketones,Urine Negative (Negative); Leukocyte Esterase,Urine Small (Negative); Mucus,Urine Rare /hpf; Nitrite,Urine Negative (Negative); PH, Urine 6.5 (5.0-8.0); Protein,Urine Negative (Negative); RBC,Urine 1 /hpf (0-5); Squamous Epithelial Cell,Urine 5 /hpf (0-4); Urobilinogen,Urine <2.0 mg/dL (<2.0); WBC,Urine 2 /hpf (0-5)
[2017-10-11 09:13] LABS: Prothrombin Time 9.7 sec (9.0-12.0)
[2017-10-11 09:18] LABS: ALT 25 U/L (9-52); AST 12 U/L (14-36); Albumin 4.3 g/dL (3.5-5.0); Alkaline Phosphatase 57 U/L (38-126); Anion Gap 13 mmol/L; Blood Urea Nitrogen 9 mg/dL (7-17); Calcium 9.3 mg/dL (8.4-10.2); Carbon Dioxide 23 mmol/L (22-30); Chloride 103 mmol/L (98-107); Glucose 101 mg/dL (74-99); Potassium 3.9 mmol/L (3.5-5.1); Sodium 139 mmol/L (137-145); Total Bilirubin 0.5 mg/dL (0.2-1.3)
[2017-10-11] MEDS ORDERED: NALOXONE 0.4 MG/ML 1 ML VIAL IV PRN (10:22)
[2017-10-11] MEDS ORDERED: MORPHINE SULFATE 2 MG/ML SYRINGE IV PRN (10:22)
[2017-10-11 13:47] VITALS: BMI 24.3
--- NOTE | 2017-10-11 15:31 | MR ---
EXAMINATION TYPE: MR lumbar spine wo/w con DATE OF EXAM: 10/11/2017 COMPARISON: NONE HISTORY: recent diagnosis of MS, lumbar puncture 2 weeks ago, blood patch 8 days ago, fever, HACKETT and b ilateral leg weakness and pain TECHNIQUE: Multiplanar, multisequence images of the lumbar spine were acquired utilizing 7.5 mL intravenous Gada vist gadolinium contrast. FINDINGS: There is a trace amount of subdural increased T1 signal layering dependently crescentic in shape at the level of S1 and L5-S1 displacing the nerve roots anteriorly without enhancement that is correspondingly T2 hypointense, this is also slightly decreased in signal and comparison to the surro unding epidural fat. Therefore suspicion is for a small amount of intradural hemorrhage, possibly fro m recent blood patch. Arachnoiditis is considered unlikely as there is no enhancement. The lumbar vertebral bodies maintain normal vertebral body height and alignment. Intervertebral disc signal is unremarkable of the upper lumbar spine and indicative of minimal desiccation at L5-S1. Bone marrow signal is unremarkable. L1-L2: Normal disc appearance without desiccation. No herniation, protrusion or disc bulging. No ca nal stenosis is present. Foramina are patent bilaterally. L2-L3: Normal disc appearance without desiccation. No herniation, protrusion or disc bulging. No ca nal stenosis is present. Foramina are patent bilaterally. L3-L4: Normal disc appearance without desiccation. No herniation, protrusion or disc bulging. No ca nal stenosis is present. Foramina are patent bilaterally. L4-L5: Normal disc appearance without desiccation. No herniation, protrusion or disc bulging. No ca nal stenosis is present. Foramina are patent bilaterally. L5-S1: Small broad-based disc bulge without spinal canal stenosis or neural foraminal narrowing. IMPRESSION: 1. Trace subdural hemorrhage at L5-S1 with only minimal mass effect on the distal nerve roots. No abn ormal enhancement to suggest arachnoiditis. No paraspinal masses to suggest abscess. 2. Minimal degenerative disc disease at L5-S1 without evidence of focal disc herniation.
--- NOTE | 2017-10-11 16:00 | P.PAINCN ---
History of Present Illness - Reason for Consult Consult date: 10/11/17 Low back pain Requesting physician: Donita Reaves - Chief Complaint Low back pain - History of Present Illness Sit 32 yo female who presents to [facility] with the issue of low back pain and neck pain. Patient is known to anesthesia service she presented about a week ago with complaints of posterior puncture headache status post a lumbar puncture at [facility]. She had a lumbar puncture to rule out multiple sclerosis, still has not followed results of that lumbar puncture study. 2 days after her lumbar puncture I examined the patient and she displayed classic signs of posterior puncture headache positional headache with nuchal rigidity. I consented her for a epidural blood patch, which was performed with ease and 15 mL's of autologous blood was injected into the 2 week. Patient had resolution of symptoms of her headache at the moment at that time, and was complaining of some back fullness. Following her discharge from the hospital, patient was still complaining of some back fullness, pain at the site of injection. Up until 3 days ago she noted that she was having some pain in her tailbone area, she stated that "felt like a grown man with standing and my tailbone". Pain radiated into her buttock area, did not describe any radiating pain into her lower extremities, no weakness in her lower extremities. Patient never complained of a sensation of insects crawling on her scan, or other signs that could be treated to nerve irritation. Patient had a lumbar MRI done on this admission, I reviewed the MRI with radiologist, who stated that there was a small collection of blood potentially at the lower L5-S1 posterior component of the thecal sac. That Q ablation could be secondary one to the lumbar puncture initially, or potentially the epidural blood patch from blood seeping through the hole in the dura. Today upon evaluation the patient complains of [id number] headache, mostly located in the temporal lobe area. Patient does have a history of of chronic migraine headaches and is on prophylactic therapy for that issue. Patient complains of some neck fullness, low back fullness, and when she stands up to walk states that she has "different sensations" that reverberate along her spine. At the moment, unsure what to make of patient's symptoms with regards to the ease of performing her epidural blood patch. I recommend the patient follow up with a neurologist, and to closely monitor her current symptoms for any potential progression, and if such progression does occur to repeat a lumbar MRI to reassure that there is no compression of her spinal cord. Physical exam: General: Alert and oriented 3 patient appears to be in mild distress, anxious HEENT: Normocephalic atraumatic Respiratory: Nonlabored, no wheezing Cardiac: Regular rate and rhythm no peripheral edema Muscular skeletal: 5 out of 5 lower shoddy strength, 2+ patellar reflexes Integumentary: Lumbar spine skin appears to be intact no infection, no erythema , not warm to touch. Neurologic: Sensory sensory is intact in the lower extremity along the L4 5 and S1 nerve roots Psychiatric: Patient appears anxious Past Medical History Past Medical History: Cancer, GERD/Reflux Additional Past Medical History / Comment(s): Pt recently worked up for multiple sclerosis thru [facility]-she states she has 2 brain lesions and a cervical lesion and has had right sided weakness upper and lower extremities-placed on steroids and it has resolved and had a spinal tap on -does not know results yet but states she is told it is likely MS, history of cervical cancer at age 17 with surgery, migraines, small hiatal hernia. History of Any Multi-Drug Resistant Organisms: None Reported Past Surgical History: No Surgical Hx Reported Additional Past Surgical History / Comment(s): 10/01/17 LP at [facility], 10/03/17 blood patch, colposcopy, EGD, removal of wisdom teeth Past Anesthesia/Blood Transfusion Reactions: No Reported Reaction Smoking Status: Former smoker - Past Family History Father Family Medical History: Hypertension Mother Family Medical History: Rheumatoid Arthritis (RA) Medications and Allergies Home Medications Medication Instructions Recorded Confirmed Type Naproxen Sodium [Aleve] 880 mg PO DAILY PRN 09/13/17 10/11/17 History SUMAtriptan SUCCINATE [Imitrex] 50 mg PO DAILY PRN 09/13/17 10/11/17 History Butalb/APAP/Caff 50-325-40Mg 1 tab PO Q4H PRN #14 tablet 09/26/17 10/11/17 Rx [Fioricet 50-325-40] Cholecalciferol (Vitamin D3) 2,000 unit PO DAILY 09/26/17 10/11/17 History [Vitamin D3] Topiramate [Topamax] 25 mg PO BID 10/03/17 10/11/17 History HYDROcodone/APAP 5-325MG [[place] 1 tab PO Q6HR PRN 10/11/17 10/11/17 History 5-325] Allergies Allergy/AdvReac Type Severity Reaction Status Date / Time No Known Allergies Allergy Verified 10/11/17 08:53 Physical Exam Vitals: Vital Signs Temp Pulse Resp BP Pulse Ox 10/11/17 11:25 80 18 107/77 100 10/11/17 11:20 98.1 F 80 18 107/77 100 10/11/17 09:56 80 18 107/77 100 10/11/17 08:01 98.1 F 90 18 116/84 99 Intake and Output 10/11/17 10/11/17 10/11/17 06:59 14:59 22:59 Intake Total 1500 Balance 1500 Intake: Amount of Fluid Infused ( 1500 ml) Other: Weight 66.224 kg Results CBC & Chem 7: 10/11/17 08:50 10/11/17 08:50 Labs: Abnormal Lab Results - Last 24 Hours (Table) 10/11/17 10/11/17 10/11/17 Range/Units 08:50 08:50 08:50 Hct 46.7 H (34.0-46.0) % Glucose 101 H (74-99) mg/dL AST 12 L (14-36) U/L Urine Appearance Cloudy H (Clear) Ur Leukocyte Esterase Small H (Negative) Ur Squamous Epith Cells 5 H (0-4) /hpf Urine Mucus Rare H (None) /hpf Assessment and Plan Plan: 1. Patient should follow-up with a neurologist as an outpatient to monitor for progression/regression. I will low suspicion for arachnoiditis, as patient does not have a lot of diagnostic criteria appropriate to make that diagnosis. Recommend antispasmodics for her tailbone pressure the patient experiences, maintain on headache prophylactic medication. PQRS Measure Charge Sheet PQRS Narrative: Smoking Status Former smoker Do You Want the Pneumonia No Vaccine AT THIS TIME? Blood Pressure 107/77 Pain Intensity [Head] 3 Pain Intensity 2 Pain Scale Used Numeric (1 - 10) Scale Used Numeric (1 - 10) Home Medications: Ambulatory Orders Naproxen Sodium [Aleve] 880 mg PO DAILY PRN 09/13/17 SUMAtriptan SUCCINATE [Imitrex] 50 mg PO DAILY PRN 09/13/17 Butalb/APAP/Caff 50-325-40Mg [Fioricet 50-325-40] 1 tab PO Q4H PRN #14 tablet Cholecalciferol (Vitamin D3) [Vitamin D3] 2,000 unit PO DAILY 09/26/17 Topiramate [Topamax] 25 mg PO BID 10/03/17 HYDROcodone/APAP 5-325MG [[place] 5-325] 1 tab PO Q6HR PRN 10/11/17
[2017-10-11] MEDS: SODIUM CHLORIDE 0.9% 1,000 ML IV SCH (16:12)
[2017-10-11] MEDS: CYCLOBENZAPRINE 5 MG TAB PO PRN (16:20)
--- NOTE | 2017-10-11 17:18 | P.HPIM ---
History of Present Illness H&P Date: 10/11/17 Azul Ortega is a 32-year-old female patient of Dr. Fritz, who presented to [facility] emergency room was a chief complaint of headache and neck and back pain. Patient stated that she had lumbar puncture 2 weeks ago , she has been complaining of worsening headache for the last 2 weeks, she started having neck pain and stiff neck in the last 2 days, and she stated that she had low-grade fever of 99 for the last 2-3 days, she was evaluated by emergency room and was admitted for further evaluation. Patient stated that she had an episode of right sided weakness including the right upper extremity and right foot drop, at that time MRI was done and had multiple spots suggestive of multiple sclerosis, she was treated with IV steroids, and then lumbar puncture was done 2 weeks ago for diagnostic reasons, results are still pending for multiple sclerosis. Past Medical History Past Medical History: Cancer, GERD/Reflux Additional Past Medical History / Comment(s): Pt recently worked up for multiple sclerosis thru [facility]-she states she has 2 brain lesions and a cervical lesion and has had right sided weakness upper and lower extremities-placed on steroids and it has resolved and had a spinal tap on -does not know results yet but states she is told it is likely MS, history of cervical cancer at age 17 with surgery, migraines, small hiatal hernia. History of Any Multi-Drug Resistant Organisms: None Reported Past Surgical History: No Surgical Hx Reported Additional Past Surgical History / Comment(s): 10/01/17 LP at [facility], 10/03/17 blood patch, colposcopy, EGD, removal of wisdom teeth Past Anesthesia/Blood Transfusion Reactions: No Reported Reaction Smoking Status: Former smoker - Past Family History Father Family Medical History: Hypertension Mother Family Medical History: Rheumatoid Arthritis (RA) Medications and Allergies Home Medications Medication Instructions Recorded Confirmed Type Naproxen Sodium [Aleve] 880 mg PO DAILY PRN 09/13/17 10/11/17 History SUMAtriptan SUCCINATE [Imitrex] 50 mg PO DAILY PRN 09/13/17 10/11/17 History Butalb/APAP/Caff 50-325-40Mg 1 tab PO Q4H PRN #14 tablet 09/26/17 10/11/17 Rx [Fioricet 50-325-40] Cholecalciferol (Vitamin D3) 2,000 unit PO DAILY 09/26/17 10/11/17 History [Vitamin D3] Topiramate [Topamax] 25 mg PO BID 10/03/17 10/11/17 History HYDROcodone/APAP 5-325MG [[place] 1 tab PO Q6HR PRN 10/11/17 10/11/17 History 5-325] Allergies Allergy/AdvReac Type Severity Reaction Status Date / Time No Known Allergies Allergy Verified 10/11/17 08:53 Physical Exam Vitals: Vital Signs Temp Pulse Pulse Resp BP BP Pulse Ox 10/11/17 15:00 98 F 80 18 112/68 99 10/11/17 11:25 80 18 107/77 100 10/11/17 11:20 98.1 F 80 18 107/77 100 10/11/17 09:56 80 18 107/77 100 10/11/17 08:01 98.1 F 90 18 116/84 99 Intake and Output 10/11/17 10/11/17 10/11/17 06:59 14:59 22:59 Intake Total 1740 Balance 1740 Intake: Amount of Fluid Infused ( 1500 ml) Oral 240 Other: # Voids 1 Weight 66.224 kg In general patient is alert and oriented 3 in no apparent distress HEENT head normocephalic and atraumatic Neck is supple no JVD no goiter no lymphadenopathy Chest exam reveals a few scattered crackles bilaterally no wheezing Cardiac exam reveals regular heart sounds S1 and S2 no gallops no murmurs Abdomen is soft nontender no organomegaly was normal bowel sounds Extremity exam reveals no edema no cyanosis or clubbing Neurological examination reveals no gross focal deficits Results CBC & Chem 7: 10/11/17 08:50 10/11/17 08:50 Labs: Abnormal Lab Results - Last 24 Hours (Table) 10/11/17 10/11/17 10/11/17 Range/Units 08:50 08:50 08:50 Hct 46.7 H (34.0-46.0) % Glucose 101 H (74-99) mg/dL AST 12 L (14-36) U/L Urine Appearance Cloudy H (Clear) Ur Leukocyte Esterase Small H (Negative) Ur Squamous Epith Cells 5 H (0-4) /hpf Urine Mucus Rare H (None) /hpf Microbiology - Last 24 Hours (Table) 10/11/17 11:21 Urine Culture - Preliminary Urine,Voided Thrombosis Risk Factor Assmnt - Choose All That Apply Any of the Below Risk Factors Present?: No Other Risk Factors: No Other congenital or acquired thrombophilia - If yes, enter type in comment: No Thrombosis Risk Factor Assessment Level: Very Low Risk Assessment and Plan Plan: #1 headache and neck pain, since having lumbar puncture 2 weeks ago #2 low-grade fever #3 rule out arachnoiditis #4 possible multiple sclerosis At this time patient is admitted for observation neurology infectious disease and and anesthesia consult requested Continue symptomatic management at this time
[2017-10-11] MEDS: IBUPROFEN 600 MG TAB PO PRN (17:28)
[2017-10-11 21:27] VITALS: TEMP 98.1
[2017-10-12] MEDS: IBUPROFEN 600 MG TAB PO PRN (06:14)
[2017-10-12] MEDS: SODIUM CHLORIDE 0.9% 1,000 ML IV SCH (06:15)
[2017-10-12] MEDS: CYCLOBENZAPRINE 5 MG TAB PO PRN (09:45)
--- NOTE | 2017-10-12 10:45 | P.PN ---
Subjective Progress Note Date: 10/12/17 Azul Ortega is a 32-year-old female patient of Dr. Fritz, who presented to [facility] emergency room was a chief complaint of headache and neck and back pain. Patient stated that she had lumbar puncture 2 weeks ago , she has been complaining of worsening headache for the last 2 weeks, she started having neck pain and stiff neck in the last 2 days, and she stated that she had low-grade fever of 99 for the last 2-3 days, she was evaluated by emergency room and was admitted for further evaluation. Patient stated that she had an episode of right sided weakness including the right upper extremity and right foot drop, at that time MRI was done and had multiple spots suggestive of multiple sclerosis, she was treated with IV steroids, and then lumbar puncture was done 2 weeks ago for diagnostic reasons, results are still pending for multiple sclerosis. 10/12/2017 patient is still reporting a headache that's mostly in the back of her neck going up into the front of her head. Also having lower back spasming. All the symptoms are worse when patient lifts her head. The Motrin and Flexeril are helping. Patient had lumbar spine completed showing a trace subdural hemorrhage at L5-S1 with only minimal mass effect on the distal nerve roots. No abnormal enhancement to suggest arachnoiditis. No paraspinal masses to suggest abscess. Minimal degenerative disc changes at L5 to S1 without evidence of focal disc herniation. Neurology and infectious disease evaluations are pending. Patient was seen by anesthesiologist service Objective - Vital Signs Vital signs: Vital Signs Temp 98.1 F 10/12/17 09:00 Pulse 76 10/12/17 09:00 Resp 18 10/12/17 09:00 BP 109/70 10/12/17 09:00 Pulse Ox 99 10/12/17 09:00 Intake & Output 10/11/17 10/12/17 10/12/17 18:59 06:59 18:59 Intake Total 1740 1160 Balance 1740 1160 Weight 66.224 kg Intake: Amount of Fluid Infused ( 1500 ml) Oral 240 1160 Other: # Voids 1 - Exam Head normocephalic Neck supple Lungs clear to auscultation bilaterally no wheezing or crackles Heart regular rate and rhythm S1-S2, no rub or gallop Abdomen is soft nontender nondistended positive bowel sounds no hepatosplenomegaly Extremities no edema Neuro alert and orientated to 3 - Labs CBC & Chem 7: 10/11/17 08:50 10/11/17 08:50 Labs: Microbiology - Last 24 Hours (Table) 10/11/17 11:21 Urine Culture - Preliminary Urine,Voided Assessment and Plan Assessment: #1 headache and neck pain, since having lumbar puncture 2 weeks ago. Neurology and infectious disease have been consulted. Continue with the Motrin and Flexeril for pain. Lumbar spines showed no evidence to suggest arachnoiditis. Did reveal is trace subdural hemorrhage at L5-S1 with minimal mass effect on the distal nerve roots. #2 low-grade fever for about 7 days #3 possible multiple sclerosis #6 migraine history GI prophylaxis Pepcid and DVT prophylaxis ambulation and SCDs I performed an examination of the patient and discussed their management with the physician Hospital Medical Assistant. I have reviewed the Physician Hospital Medical Assistant's notes and agree with the documented findings and plan of care
[2017-10-12 12:44] VITALS: BP 108/73; PULSE 70; RESP 16
--- NOTE | 2017-10-12 14:34 | P.CONS ---
History of Present Illness - Reason for Consult Consult date: 10/12/17 Headache - Chief Complaint Headache - History of Present Illness Is a pleasant 32-year-old female being evaluated by the neurology service for headache and neck pain. The patient relates that she had a lumbar puncture 2 weeks ago when her evaluation for multiple sclerosis. She began complaining of a worsening headache over the last 2 weeks. She also had some neck tightness and stiffness over the last 2 days. She reports having a low- grade fever of about 99 for a couple days. She has been getting ibuprofen and Flexeril which seem to be helping. Her headache is no longer positional. He has no focal neurological complaints. MRI of the lumbar spine did show some trace subdural hemorrhage at L5-S1. She did go back and have a blood patch so this is consistent with that. No abnormal enhancements. There was no indication of abscess. At the time my exam she is sitting up in her bed resting comfortably. She is drinking coffee in Pepsi which she said seems to be helping. she does have a history of migraines, but this headache is different in nature. Review of Systems All systems: negative Constitutional: Reports as per HPI Past Medical History Past Medical History: Cancer, GERD/Reflux Additional Past Medical History / Comment(s): Pt recently worked up for multiple sclerosis thru [facility]-she states she has 2 brain lesions and a cervical lesion and has had right sided weakness upper and lower extremities-placed on steroids and it has resolved and had a spinal tap on -does not know results yet but states she is told it is likely MS, history of cervical cancer at age 17 with surgery, migraines, small hiatal hernia. History of Any Multi-Drug Resistant Organisms: None Reported Past Surgical History: No Surgical Hx Reported Additional Past Surgical History / Comment(s): 10/01/17 LP at [facility], 10/03/17 blood patch, colposcopy, EGD, removal of wisdom teeth Past Anesthesia/Blood Transfusion Reactions: No Reported Reaction Smoking Status: Former smoker - Past Family History Father Family Medical History: Hypertension Mother Family Medical History: Rheumatoid Arthritis (RA) Medications and Allergies Home Medications Medication Instructions Recorded Confirmed Type Naproxen Sodium [Aleve] 880 mg PO DAILY PRN 09/13/17 10/11/17 History SUMAtriptan SUCCINATE [Imitrex] 50 mg PO DAILY PRN 09/13/17 10/11/17 History Butalb/APAP/Caff 50-325-40Mg 1 tab PO Q4H PRN #14 tablet 09/26/17 10/11/17 Rx [Fioricet 50-325-40] Cholecalciferol (Vitamin D3) 2,000 unit PO DAILY 09/26/17 10/11/17 History [Vitamin D3] Topiramate [Topamax] 25 mg PO BID 10/03/17 10/11/17 History HYDROcodone/APAP 5-325MG [[place] 1 tab PO Q6HR PRN 10/11/17 10/11/17 History 5-325] Allergies Allergy/AdvReac Type Severity Reaction Status Date / Time No Known Allergies Allergy Verified 10/11/17 08:53 Physical Exam Vitals: Vital Signs Temp Pulse Resp BP Pulse Ox 10/12/17 11:55 98.1 F 70 16 108/73 97 10/12/17 09:00 98.1 F 76 18 109/70 99 10/11/17 20:03 98.1 F 74 20 122/74 98 10/11/17 15:00 98 F 80 18 112/68 99 Intake and Output 10/11/17 10/12/17 10/12/17 22:59 06:59 14:59 Intake Total 1160 0 Balance 1160 0 Intake: Oral 1160 0 - Constitutional General appearance: average body habitus, cooperative, no acute distress - EENT Eyes: no abnormal pupil, EOMI, PERRLA, no ptosis ENT: hearing grossly normal - Neck Neck: normal ROM, no rigidity - Respiratory Respiratory: negative: prolonged expiration, prolonged inspiration - Cardiovascular Rhythm: regular - Gastrointestinal General gastrointestinal: no distended, no tenderness - Neurologic The patient is alert awake and oriented 3. Speech and language are normal. There is no facial asymmetry. Strength is 5 out of 5 in bilateral upper and lower extremities. There is no sensory deficit. No tremors or seizures are seen. Cranial nerves II through XII are intact globally. There is no pronator drift. As above note and rigidity. Results CBC & Chem 7: 10/11/17 08:50 10/11/17 08:50 Labs: Microbiology - Last 24 Hours (Table) 10/11/17 11:21 Urine Culture - Final Urine,Voided 10/11/17 10:07 Blood Culture - Preliminary Blood No Growth after 24 hours Assessment and Plan (1) White matter changes Current Visit: Yes Status: Chronic Code(s): CWF6757 - SNOMED Code(s): 640729382 (2) Headache Current Visit: Yes Status: Acute Code(s): R51 - HEADACHE SNOMED Code(s): 91512764 (3) Low back pain Current Visit: Yes Status: Acute Code(s): M54.5 - LOW BACK PAIN SNOMED Code(s): 270617372 (4) Spinal puncture headache Current Visit: No Status: Acute Code(s): G97.1 - OTHER REACTION TO SPINAL AND LUMBAR PUNCTURE SNOMED Code(s): 338008474 Plan: The patient likely has a protracted episode of spinal headache from her lumbar puncture. Her symptoms seem to be improving. Since she still does have a headache I will order CT of the brain just to rule out any chance of brain abscess. She did have a mildly elevated temperature and infectious disease has been consult that I believe. Otherwise she is showing no signs of infection. Recommend continued NSAIDs and muscle relaxer. Hydration and caffeine as needed. We will continue to follow but if her CT is normal she would be cleared from a neurological standpoint. I have performed a history and physical on the above patient. I have reviewed the above note, and agree.
--- NOTE | 2017-10-12 15:16 | CT ---
EXAMINATION TYPE: CT brain wo con DATE OF EXAM: 10/12/2017 COMPARISON: CT brain 09/13/2017 HISTORY: Spinal HACKETT CT DLP: 1064 mGycm. Automated Exposure Control for Dose Reduction was Utilized. TECHNIQUE: CT scan of the head is performed without contrast. FINDINGS: There is high attenuation along the posterior falx and tentorium in the posterior fossa. Th ere is no mass effect or hydrocephalus. Calvarium is intact. Paranasal sinuses and mastoid air cells as visualized are normal. 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
--- NOTE | 2017-10-12 16:08 | P.DS ---
Providers Date of admission: 10/11/17 10:22 Expected date of discharge: 10/12/17 Attending physician: Donita Reaves Consults: 10/11/17 10:22 Consult Physician Urgent Consulting Provider: Rickey Briscoe Consult Reason/Comments: Fever, headache post lumbar puncture Do you want consulting provider notified?: Yes Consult Physician Urgent Consulting Provider: Madelyn Pineda Consult Reason/Comments: Fever, headache post lumbar puncture Do you want consulting provider notified?: Yes 10/11/17 17:20 Consult Physician Routine Consulting Provider: John Bell Consult Reason/Comments: headache, post LP Do you want consulting provider notified?: Yes [facility] Course: Diagnoses on discharge: #1 headache and neck pain, since having lumbar puncture 2 weeks ago. Neurology and infectious disease have been consulted. Continue with the Motrin and Flexeril for pain. Lumbar spines showed no evidence to suggest arachnoiditis. Did reveal is trace subdural hemorrhage at L5-S1 with minimal mass effect on the distal nerve roots. CT scan of the brain reveals chronic hemorrhage along the tentorium and posterior falx. #2 low-grade fever for about 7 days #3 possible multiple sclerosis #6 migraine history Hospital course: Azul Ortega is a 32-year-old female patient of Dr. Fritz, who presented to [facility] emergency room was a chief complaint of headache and neck and back pain. Patient stated that she had lumbar puncture 2 weeks ago , she has been complaining of worsening headache for the last 2 weeks, she started having neck pain and stiff neck in the last 2 days, and she stated that she had low-grade fever of 99 for the last 2-3 days, she was evaluated by emergency room and was admitted for further evaluation. Patient stated that she had an episode of right sided weakness including the right upper extremity and right foot drop, at that time MRI was done and had multiple spots suggestive of multiple sclerosis, she was treated with IV steroids, and then lumbar puncture was done 2 weeks ago for diagnostic reasons, results are still pending for multiple sclerosis. 10/12/2017 patient is still reporting a headache that's mostly in the back of her neck going up into the front of her head. Also having lower back spasming. All the symptoms are worse when patient lifts her head. The Motrin and Flexeril are helping. Patient had lumbar spine completed showing a trace subdural hemorrhage at L5-S1 with only minimal mass effect on the distal nerve roots. No abnormal enhancement to suggest arachnoiditis. No paraspinal masses to suggest abscess. Minimal degenerative disc changes at L5 to S1 without evidence of focal disc herniation. Neurology and infectious disease evaluations are pending. Patient was seen by anesthesiologist service. Due to findings on head CT scan recommendation by neurology to transfer back to [facility] where she had her lumbar puncture. Arrangement are being made for transfer. Plan - Discharge Summary Discharge Rx Participant: No New Discharge Prescriptions: New Cyclobenzaprine [Flexeril] 5 mg PO TID PRN tab PRN Reason: Muscle Spasm Famotidine [Pepcid] 20 mg PO DAILY tab Continue SUMAtriptan SUCCINATE [Imitrex] 50 mg PO DAILY PRN PRN Reason: Migraine Headache Cholecalciferol (Vitamin D3) [Vitamin D3] 2,000 unit PO DAILY Topiramate [Topamax] 25 mg PO BID HYDROcodone/APAP 5-325MG [[place] 5-325] 1 tab PO Q6HR PRN PRN Reason: Pain Discontinued Naproxen Sodium [Aleve] 880 mg PO DAILY PRN PRN Reason: Pain Butalb/APAP/Caff 50-325-40Mg [Fioricet 50-325-40] 1 tab PO Q4H PRN #14 tablet PRN Reason: Headache Discharge Medication List SUMAtriptan SUCCINATE [Imitrex] 50 mg PO DAILY PRN 09/13/17 [History] Cholecalciferol (Vitamin D3) [Vitamin D3] 2,000 unit PO DAILY 09/26/17 [History] Topiramate [Topamax] 25 mg PO BID 10/03/17 [History] HYDROcodone/APAP 5-325MG [[place] 5-325] 1 tab PO Q6HR PRN 10/11/17 [History] Cyclobenzaprine [Flexeril] 5 mg PO TID PRN tab 10/12/17 [Rx] Famotidine [Pepcid] 20 mg PO DAILY tab 10/12/17 [Rx] Follow up Appointment(s)/Referral(s): Niki Fritz MD [Primary Care Provider] - 1-2 days
[2017-10-12] MEDS ORDERED: ALPRAZolam 0.5 MG TAB PO PRN (16:14)
--- NOTE | 2017-10-12 18:12 | CONS ---
CONSULTATION DATE OF SERVICE: 10/12/2017 REASON FOR CONSULTATION: Low-grade fever, post lumbar puncture. HISTORY OF PRESENT ILLNESS: The patient is a 32-year-old female, currently undergoing workup for acute weakness on the right side of her body. The patient apparently did have an MRI done at [facility]. She has been told with a spot on her brain and cervical spine suspicious for multiple sclerosis. She was advised to have a lumbar puncture to help come up with diagnoses. The patient did have a lumbar puncture completed at [facility] about 2 weeks ago. The patient says that she has immediately headache after the lumbar puncture; however, the patient was discharged home. Within 2 days after discharge from [facility], she presented to the [facility] ER with significant persistent and worsening headache. The patient did have lumbar epidural blood patch applied on 10/03/2017. The patient said that her headache improved after the patch; however, the patient has been complaining of pressure both in her head as well as in the tailbone area. The patient says she also has been having the low-grade fever at home, 99 degrees had to be the highest, with some chills. The patient denies having any chest pain or shortness of breath or cough. No abdominal pain or any diarrhea. With the same symptoms, the patient has been evaluated at the [facility] ER on 10/11. The patient did have a lumbosacral spine MRI completed which showed trace subdural hemorrhage at L5-S1 with only minimal mass effect on no bruise. No abnormal enhancement to suggest arachnoiditis. No paraspinal abscess to suggest an abscess. The patient has no fever since patient has been admitted hospital and her white count has been normal. Infectious Disease was consulted because of her low-grade fever post lumbar puncture. REVIEW OF SYSTEMS: Constitutionally positive for weakness and low-grade fever as mentioned above. EYES: No complaint. ENT: No complaint. RESPIRATORY: No complaint. CARDIOVASCULAR: No complaint. GENITOURINARY: No complaint. GASTROINTESTINAL: No complaint. MUSCULOSKELETAL: No complaint. INTEGUMENTARY: As per HPI. PSYCHOLOGICAL: No complaint. ENDOCRINE: No complaint. NEUROLOGICAL: As per HPI. PAST MEDICAL HISTORY: Gastroesophageal reflux disease, reflux disease, cervical cancer, migraine headache, hiatal hernia. PAST SURGICAL HISTORY: Colonoscopy, EGD and recent LP at [facility] with a blood patch on 10/03/2017. SOCIAL HISTORY: Remote history of smoking. No drug use. FAMILY HISTORY: Father with history of hypertension. Mother with history of rheumatoid arthritis. ALLERGIES: No known drug allergies. MEDICATIONS: Include the patient is currently on: 1. Xanax. 2. Flexeril. 3. Pepcid. 4. Motrin. 5. Morphine sulfate. 6. Narcan. EXAMINATION: Her blood pressure 108/73 with a pulse of 70, temperature 98.1. She is 97% on room air. General description is a middle-aged female lying in bed in no distress. No tachypnea or accessory muscle of respiration use. HEENT shows no pallor or scleral icterus. Oral mucous membranes are dry. No pharyngeal erythema or thrush. NECK: Trachea central. No thyromegaly. LUNGS: Unlabored breathing. Clear to auscultation anteriorly. No wheeze or crackle. HEART: S1, S2. Regular rate and rhythm. No added sounds. ABDOMEN: Soft, no tenderness. No guarding or rigidity. EXTREMITIES: No edema feet. SKIN: No rash or mass palpable. NEUROLOGICAL: Patient awake, alert, oriented x3. Neck is supple. No signs of meningeal irritation. LABS: Hemoglobin is 15.8, white count 8.4 with a BUN of 9 creatinine 0.62. Electrolytes have been normal. Liver enzymes are normal. Urine shows small leukocyte esterase with only 2 WBCs. DIAGNOSTIC IMPRESSION: Patient with a recent lumbar puncture as part of the workup for the multiple sclerosis. Post procedure, the patient having severe headache for which the patient did require lumbar blood patch. The patient's headache improved, complaining of some pressure and low-grade fever, now with MRI suspicious for small subdural hematoma, more likely the source of this low-grade fever. Clinically doubt infection or meningitis or arachnoiditis, as the patient would have more severe pain and more high fever or elevated white count, which we are currently not seeing in this patient. PLAN: 1. No need for any systemic antibiotic therapy at this point. 2. Patient possible transfer to [place] to be evaluated by her physician at that facility. MMODL / IJN: [id number] /
[2017-10-13] MEDS ORDERED: FAMOTIDINE 20 MG TAB PO SCH (09:00)
== END 2017-10-12 18:06 | disposition short-term general hospital (02) | DRG 102 ==
LOC: EC 07:58 → 6PED 10:22 → OBSVTOIN 10-12 16:06
PROVIDERS: ADMIT Internal Medicine; ATTEND Internal Medicine
DX: G97.1 Other reaction to spinal and lumbar puncture (principal); I62.03 Nontraumatic chronic subdural hemorrhage; Z87.891 Personal history of nicotine dependence; G43.909 Migraine, unspecified, not intractable, without status migrainosus; K21.9 Gastro-esophageal reflux disease without esophagitis; Z82.49 Family history of ischemic heart disease and other diseases of the circulatory system; Z85.41 Personal history of malignant neoplasm of cervix uteri; G35 Multiple sclerosis; R50.9 Fever, unspecified; M51.37 Other intervertebral disc degeneration, lumbosacral region; Z82.61 Family history of arthritis; K44.9 Diaphragmatic hernia without obstruction or gangrene
CPT/HCPCS: 36415; 70450; 72158; 80053; 81001; 85025; 85610; 85730; 87040; 87086; 96361; 96374; 96375; 99285

== ENCOUNTER → 2018-06-03 | Outpatient (CLI) | payer BC ==
--- NOTE | 2018-06-03 12:56 | US ---
EXAMINATION TYPE: US pelvic complete DATE OF EXAM: 06/03/2018 COMPARISON: NONE CLINICAL HISTORY: R10.2 Pelvic Pain. Pelvic pain, history of ovarian cyst TECHNIQUE: Transabdominal (TA). Date of LMP: 05/29/18 EXAM MEASUREMENTS: Uterus: 8.9 x 4.3 x 5.7 cm Endometrial Stripe: 0.7 cm Right Ovary: 3.2 x 1.9 x 2.9 cm Left Ovary: 2.6 x 1.8 x 2.2 cm 1. Uterus: Anteverted appears wnl 2. Endometrium: wnl 3. Right Ovary: follicles noted 4. Left Ovary: follicles noted 5. Bilateral Adnexa: wnl 6. Posterior cul-de-sac: scant amount of free fluid Heterogeneous anteverted uterus is seen. Endometrium appears unremarkable. Tiny amount of free fluid in pelvis is identified during real-time scanning towards end of study in cul-de-sac. Both ovaries ar e seen with scattered small peripheral follicles. No concerning ovarian or adnexal lesions are presen t on current study. IMPRESSION: No suspicious ovarian or adnexal lesions currently.
== END | disposition home or self-care (01) ==
LOC: RADUSWWP 11:57
PROVIDERS: ATTEND Obstetrics & Gynecology
DX: R10.2 Pelvic and perineal pain (principal); R10.32 Left lower quadrant pain
CPT/HCPCS: 76856

== ENCOUNTER → 2019-10-17 | Outpatient (CLI) | payer BC ==
--- NOTE | 2019-10-20 09:00 | MM ---
Reason for exam: clinical finding. History: Patient history of other cancer. Indicated problem(s): lump or thickening and pain in the left breast. Physical Findings: Nurse did not find any significant physical abnormalities on exam. MG 3D Diag Mammo W/Cad MAKENNA Bilateral CC and MLO view(s) were taken. The breast tissue is extremely dense which could obscure a lesion on mammography. These results were verbally communicated with the patient and result sheet given to the patient on 10/17/19. ASSESSMENT: Benign, BI-RAD 2 RECOMMENDATION: Routine screening mammogram of both breasts at age 37.
--- NOTE | 2019-10-20 09:01 | USB ---
Reason for exam: clinical finding. History: Patient history of other cancer. Indicated problem(s): lump or thickening and pain in the left breast. Physical Findings: Nurse did not find any significant physical abnormalities on exam. US Breast BILAT Right complete breast ultrasound includes all four quadrants, the retroareolar region and axilla. Finding demonstrates a 7 x 3 x 8mm oval, mixed cluster of cysts at 10 o'clock. Left complete breast ultrasound includes all four quadrants, the retroareolar region and axilla. Finding demonstrates a 3 x 2 x 5mm oval, cystic lesion at 2 o'clock. These results were verbally communicated with the patient and result sheet given to the patient on 10/17/19. ASSESSMENT: Incomplete: need additional imaging evaluation, BI-RAD 0 RECOMMENDATION: Follow-up diagnostic mammogram of both breasts.
== END | disposition home or self-care (01) ==
LOC: RADMAMWWP 14:07
PROVIDERS: ATTEND Family Medicine
DX: N63.0 Unspecified lump in unspecified breast (principal)
CPT/HCPCS: 77062; 77066

== ENCOUNTER 2020-11-04 12:38 | Emergency (ER) | payer BC ==
[2020-11-04] MEDS ORDERED: SODIUM CHLORIDE 0.9% 1,000 ML IV STA ×2 (13:03)
[2020-11-04] MEDS ORDERED: KETOROLAC 15 MG/ML 1 ML VIAL IVP STA (13:03)
[2020-11-04] MEDS ORDERED: HYDROCORTISONE SUCCINATE 100 MG/2 ML VIAL IV STA (13:04)
--- NOTE | 2020-11-04 13:16 | ED ---
Back Pain HPI - General Chief Complaint: Back Pain/Injury Stated Complaint: Multiple Sclerosis Time Seen by Provider: 11/04/20 12:47 Source: patient, RN notes reviewed Limitations: no limitations - History of Present Illness Initial Comments: This is a 35-year-old female with a 3 year history of multiple sclerosis who states she had the onset yesterday of loss of function of her lower extremities and weakness she states she regained her function but still feels weak to lower extremity she also has pain over the left side of her back and shoulder area that gets worse with movement. She feels as if this is similar to previous exacerbations of her MS. She denies any fevers chills nausea vomiting sweats dysuria urinary or fecal incontinence. No loss of appetite no other complaints or modifying factors at this time MD Complaint: back pain, other - Related Data Home Medications Medication Instructions Recorded Confirmed Ergocalciferol [Vitamin D2 (1250 1,250 mcg PO MO 11/04/20 11/04/20 Mcg = 86416 Iu)] Teriflunomide [Aubagio] 14 mg PO DAILY 11/04/20 11/04/20 Venlafaxine HCl ER [Effexor Xr] 150 mg PO DAILY 11/04/20 11/04/20 Previous Rx's Medication Instructions Recorded Baclofen [Lioresal] 10 mg PO TID #21 tablet 11/04/20 predniSONE [Deltasone] 100 mg PO BID #14 tab 11/04/20 Allergies Allergy/AdvReac Type Severity Reaction Status Date / Time No Known Allergies Allergy Verified 11/04/20 14:07 Review of Systems ROS Statement: Those systems with pertinent positive or pertinent negative responses have been documented in the HPI. ROS Other: All systems not noted in ROS Statement are negative. Past Medical History Past Medical History: Cancer, GERD/Reflux Additional Past Medical History / Comment(s): Pt recently worked up for multiple sclerosis thru [facility]-she states she has 2 brain lesions and a cervical lesion and has had right sided weakness upper and lower extremities- placed on steroids and it has resolved and had a spinal tap on 10/01/17-does not know results yet but states she is told it is likely MS, history of cervical cancer at age 17 with surgery, migraines, small hiatal hernia. History of Any Multi-Drug Resistant Organisms: None Reported Past Surgical History: No Surgical Hx Reported Additional Past Surgical History / Comment(s): 10/01/17 LP at [facility], 10/03/17 blood patch, colposcopy, EGD, removal of wisdom teeth Past Anesthesia/Blood Transfusion Reactions: No Reported Reaction Past Psychological History: No Psychological Hx Reported Smoking Status: Never smoker Past Alcohol Use History: None Reported Past Drug Use History: Marijuana - Past Family History Father Family Medical History: Hypertension Mother Family Medical History: Rheumatoid Arthritis (RA) General Exam - General Exam Comments Initial Comments: Is a well-developed asthenic appearing female who is awake alert oriented 3 Limitations: no limitations General appearance: alert, anxious Head exam: Present: atraumatic, normocephalic, normal inspection Eye exam: Present: normal appearance, PERRL, EOMI. Absent: scleral icterus, conjunctival injection, periorbital swelling ENT exam: Present: normal exam, mucous membranes moist Neck exam: Present: normal inspection, full ROM, other (No stridor JVD or bruits). Absent: tenderness, meningismus, lymphadenopathy Respiratory exam: Present: normal lung sounds bilaterally. Absent: respiratory distress, wheezes, rales, rhonchi, stridor Cardiovascular Exam: Present: regular rate, normal rhythm, normal heart sounds. Absent: systolic murmur, diastolic murmur, rubs, gallop, clicks GI/Abdominal exam: Present: soft, normal bowel sounds. Absent: distended, tenderness, guarding, rebound, rigid Extremities exam: Present: normal inspection, normal capillary refill. Absent: tenderness, pedal edema, joint swelling, calf tenderness Back exam: Present: normal inspection, tenderness Neurological exam: Present: alert, oriented X3, CN II-XII intact, motor sensory deficit (Decreased range of motion of the lower extremities especially the right compared to the left patient states this is consistent with previous MS exacerbations) Psychiatric exam: Present: normal affect, anxious Skin exam: Present: warm, dry, intact, normal color. Absent: rash Course Vital Signs 11/04/20 12:39 Temperature 98.1 F Pulse Rate 76 Respiratory 16 Rate Blood Pressure 136/85 O2 Sat by Pulse 99 Oximetry Medical Decision Making - Medical Decision Making I did have a long discussion with the patient and family member regarding the findings the presentation is consistent with MS exacerbation. I did recommend admission for IV steroids and further treatment and evaluation. Patient has refused to stay at this time. The family members agree to take the patient home she'll be placed on oral steroids she was encouraged to follow-up with her doctor as soon as possible and was welcome back at any time return parameters were discussed. We did discuss risks including fall and injury. She is agreed to accept the responsibility and does appear to have decision-making capacity. - Lab Data Result diagrams: 11/04/20 13:26 11/04/20 13:26 Lab Results 11/04/20 11/04/20 11/04/20 Range/Units 13:26 13:26 13:26 WBC 4.9 (3.8-10.6) k/uL RBC 5.02 (3.80-5.40) m/uL Hgb 15.7 (11.4-16.0) gm/dL Hct 45.5 (34.0-46.0) % MCV 90.7 (80.0-100.0) fL MCH 31.4 (25.0-35.0) pg MCHC 34.6 (31.0-37.0) g/dL RDW 11.7 (11.5-15.5) % Plt Count 189 (150-450) k/uL MPV 6.6 Neutrophils % 55 % Lymphocytes % 29 % Monocytes % 6 % Eosinophils % 5 % Basophils % 1 % Neutrophils # 2.7 (1.3-7.7) k/uL Lymphocytes # 1.4 (1.0-4.8) k/uL Monocytes # 0.3 (0-1.0) k/uL Eosinophils # 0.3 (0-0.7) k/uL Basophils # 0.1 (0-0.2) k/uL Sodium 138 (137-145) mmol/L Potassium 4.0 (3.5-5.1) mmol/L Chloride 109 H (98-107) mmol/L Carbon Dioxide 22 (22-30) mmol/L Anion Gap 7 mmol/L BUN 8 (7-17) mg/dL Creatinine 0.48 L (0.52-1.04) mg/dL Est GFR (CKD-EPI)AfAm >90 (>60 ml/min/1.73 sqM) Est GFR (CKD-EPI)NonAf >90 (>60 ml/min/1.73 sqM) Glucose 108 H (74-99) mg/dL Calcium 9.4 (8.4-10.2) mg/dL Magnesium 2.0 (1.6-2.3) mg/dL Total Bilirubin 0.4 (0.2-1.3) mg/dL AST 19 (14-36) U/L ALT 15 (4-34) U/L Alkaline Phosphatase 63 (38-126) U/L Creatine Kinase 66 (30-135) U/L Total Protein 7.4 (6.3-8.2) g/dL Albumin 4.4 (3.5-5.0) g/dL Urine Color Colorless Urine Appearance Clear (Clear) Urine pH 7.0 (5.0-8.0) Ur Specific [place] 1.003 (1.001-1.035) Urine Protein Negative (Negative) Urine Glucose (UA) Negative (Negative) Urine Ketones Negative (Negative) Urine Blood Negative (Negative) Urine Nitrite Negative (Negative) Urine Bilirubin Negative (Negative) Urine Urobilinogen <2.0 (<2.0) mg/dL Ur Leukocyte Esterase Negative (Negative) - Radiology Data Radiology results: report reviewed (Imaging reviewed no acute findings.), image reviewed Disposition Clinical Impression: Multiple sclerosis exacerbation, Myofascial pain Disposition: HOME SELF-CARE Condition: Fair Prescriptions: predniSONE [Deltasone] 100 mg PO BID #14 tab Baclofen [Lioresal] 10 mg PO TID #21 tablet Is patient prescribed a controlled substance at d/c from ED?: No Referrals: Len Aldridge MD [Primary Care Provider] - 1-2 days
[2020-11-04 13:39] LABS: Basophils # (A) 0.1 k/uL (0-0.2); Basophils % (A) 1 %; Eosinophils # (A) 0.3 k/uL (0-0.7); Eosinophils % (A) 5 %; HCT 45.5 % (34.0-46.0); HGB 15.7 gm/dL (11.4-16.0); Lymphocytes # (A) 1.4 k/uL (1.0-4.8); Lymphocytes % (A) 29 %; MCH 31.4 pg (25.0-35.0); MCHC 34.6 g/dL (31.0-37.0); MCV 90.7 fL (80.0-100.0); Mean Platelet Volume 6.6; Monocytes # (A) 0.3 k/uL (0-1.0); Monocytes % (A) 6 %; Neutrophils # (A) 2.7 k/uL (1.3-7.7); Neutrophils % (A) 55 %; Platelet Count 189 k/uL (150-450); RBC 5.02 m/uL (3.80-5.40); RDW 11.7 % (11.5-15.5); WBC 4.9 k/uL (3.8-10.6)
[2020-11-04 13:43] LABS: Appearance,Urine Clear (Clear); Bilirubin,Urine Negative (Negative); Blood,Urine Negative (Negative); Color,Urine Colorless; Glucose,Urine (UA) Negative (Negative); Ketones,Urine Negative (Negative); Leukocyte Esterase,Urine Negative (Negative); Nitrite,Urine Negative (Negative); Protein,Urine Negative (Negative); Specific Gravity,Urine 1.003 (1.001-1.035); Urobilinogen,Urine <2.0 mg/dL (<2.0)
[2020-11-04 13:53] LABS: ALT 15 U/L (4-34); AST 19 U/L (14-36); African American GFR (CKD) >90 (>60 ml/min/1.73 sqM); Albumin 4.4 g/dL (3.5-5.0); Alkaline Phosphatase 63 U/L (38-126); Anion Gap 7 mmol/L; Blood Urea Nitrogen 8 mg/dL (7-17); Calcium 9.4 mg/dL (8.4-10.2); Carbon Dioxide 22 mmol/L (22-30); Chloride 109 mmol/L (98-107); Creatine Kinase 66 U/L (30-135); Glucose 108 mg/dL (74-99); Non-African American GFR(CKD) >90 (>60 ml/min/1.73 sqM); Sodium 138 mmol/L (137-145); Total Bilirubin 0.4 mg/dL (0.2-1.3); Total Protein 7.4 g/dL (6.3-8.2)
--- NOTE | 2020-11-04 14:07 | XR ---
EXAMINATION TYPE: XR chest 2V DATE OF EXAM: 11/04/2020 COMPARISON: NONE HISTORY: History of MS. Weakness. Bilateral numbness and bilateral arm tingling. TECHNIQUE: Frontal and lateral views of the chest are obtained. FINDINGS: No focal consolidation, pneumothorax or pleural effusion. Nodular regions at the lung base s most likely represent nipple shadows. Nipple markers with oblique imaging could be obtained. Heart size is within normal limits. Trachea is midline. Osseous structures are unremarkable. IMPRESSION: 1. No acute pulmonary disease. 2. Bilateral probable nipple shadows. A repeat study with nipple markers could be obtained for confir mation using oblique projections.
[2020-11-04] MEDS ORDERED: methylPREDNISolone SOD SUCCI 125 MG/2 ML VIAL IV STA (14:28)
[2020-11-04] MEDS ORDERED: methylPREDNISolone SOD SUCC 1,000 MG in SODIUM CHLORIDE 0.9% 250 ML IVPB ONE (14:45)
[2020-11-04 16:11] VITALS: BP 139/90; PULSE 77; RESP 18; TEMP 97.4
== END 2020-11-04 16:10 | disposition home or self-care (01) ==
LOC: EC 12:38
DX: G35 Multiple sclerosis (principal); M79.18 Myalgia, other site; K21.9 Gastro-esophageal reflux disease without esophagitis; F12.90 Cannabis use, unspecified, uncomplicated; Z79.52 Long term (current) use of systemic steroids; Z79.899 Other long term (current) drug therapy; Z82.49 Family history of ischemic heart disease and other diseases of the circulatory system
CPT/HCPCS: 36415; 80053; 82550; 83735; 85025; 81003; 71046; 96365; 96375 ×2; 96361; 99285; J1720; J2930; J1885

== ENCOUNTER 2020-11-11 16:19 | Emergency (ER) | payer BC ==
[2020-11-11 16:35] VITALS: BP 122/81; PULSE 79; RESP 18; TEMP 99
--- NOTE | 2020-11-11 17:35 | ED ---
Recheck HPI - General Chief Complaint: Recheck/Abnormal Lab/Rx Stated Complaint: MS Med refill Time Seen by Provider: 11/11/20 17:10 Source: patient Mode of arrival: ambulatory Limitations: no limitations - History of Present Illness Initial Comments: 35-year-old female with history of multiple sclerosis presents to the emergency department with a chief complaint of medication refill. Patient states she came to the emergency department about one week ago and was started on high-dose steroids. States the prescription only lasted one week and she went to her primary care physician today who would not prescribe her any additional steroids and advised to see her neurologist. She states that her neurologist appointment is not until December. Patient reports she needs to be on 80 mg prednisone daily for the next month. She denies any symptoms at this time. - Related Data Home Medications Medication Instructions Recorded Confirmed Ergocalciferol [Vitamin D2 (1250 1,250 mcg PO MO 11/04/20 11/04/20 Mcg = 87785 Iu)] Teriflunomide [Aubagio] 14 mg PO DAILY 11/04/20 11/04/20 Venlafaxine HCl ER [Effexor Xr] 150 mg PO DAILY 11/04/20 11/04/20 Previous Rx's Medication Instructions Recorded Baclofen [Lioresal] 10 mg PO TID #21 tablet 11/04/20 predniSONE [Deltasone] 100 mg PO BID #14 tab 11/04/20 predniSONE [Deltasone] 80 mg PO DAILY 30 Days #30 tab 11/11/20 Allergies Allergy/AdvReac Type Severity Reaction Status Date / Time No Known Allergies Allergy Verified 11/11/20 16:35 Review of Systems ROS Statement: Those systems with pertinent positive or pertinent negative responses have been documented in the HPI. ROS Other: All systems not noted in ROS Statement are negative. Past Medical History Past Medical History: Cancer, GERD/Reflux Additional Past Medical History / Comment(s): Pt recently worked up for multiple sclerosis thru [facility]-she states she has 2 brain lesions and a cervical lesion and has had right sided weakness upper and lower extremities- placed on steroids and it has resolved and had a spinal tap on 10/01/17-does not know results yet but states she is told it is likely MS, history of cervical cancer at age 17 with surgery, migraines, small hiatal hernia. History of Any Multi-Drug Resistant Organisms: None Reported Past Surgical History: No Surgical Hx Reported Additional Past Surgical History / Comment(s): 10/01/17 LP at [facility], 10/03/17 blood patch, colposcopy, EGD, removal of wisdom teeth Past Anesthesia/Blood Transfusion Reactions: No Reported Reaction Past Psychological History: No Psychological Hx Reported Smoking Status: Never smoker Past Alcohol Use History: None Reported Past Drug Use History: Marijuana - Past Family History Father Family Medical History: Hypertension Mother Family Medical History: Rheumatoid Arthritis (RA) General Exam Limitations: no limitations General appearance: alert, in no apparent distress Head exam: Present: atraumatic, normocephalic, normal inspection Eye exam: Present: normal appearance Pupils: Present: normal accommodation ENT exam: Present: normal exam, normal oropharynx, mucous membranes moist Neck exam: Present: normal inspection, full ROM. Absent: tenderness Respiratory exam: Present: normal lung sounds bilaterally. Absent: respiratory distress, wheezes, rales, rhonchi Cardiovascular Exam: Present: regular rate, normal rhythm, normal heart sounds. Absent: systolic murmur, diastolic murmur Extremities exam: Present: normal inspection, full ROM, normal capillary refill Back exam: Present: normal inspection, full ROM Neurological exam: Present: alert, oriented X3 Psychiatric exam: Present: normal affect, normal mood Skin exam: Present: warm, dry, intact, normal color Course Vital Signs 11/11/20 16:30 Temperature 99.0 F Pulse Rate 79 Respiratory 18 Rate Blood Pressure 122/81 O2 Sat by Pulse 99 Oximetry Medical Decision Making - Medical Decision Making 35-year-old female presents to emergency department should complaint medication refill. I will give her 80 mg daily prednisone for the next 30 days as she requested until she is able to follow-up with a neurologist. Case discussed wit h physician Disposition Clinical Impression: Encounter for medication refill Disposition: HOME SELF-CARE Condition: Stable Instructions (If sedation given, give patient instructions): Mitral Stenosis (ED) Additional Instructions: Please return to the Emergency Department if symptoms worsen or any other concerns. Prescriptions: predniSONE [Deltasone] 80 mg PO DAILY 30 Days #30 tab Is patient prescribed a controlled substance at d/c from ED?: No Referrals: Len Aldridge MD [Primary Care Provider] - 1-2 days Time of Disposition: 17:33
== END 2020-11-11 18:14 | disposition home or self-care (01) ==
LOC: EC 16:19
DX: Z76.0 Encounter for issue of repeat prescription (principal); F12.90 Cannabis use, unspecified, uncomplicated; K21.9 Gastro-esophageal reflux disease without esophagitis; G43.909 Migraine, unspecified, not intractable, without status migrainosus
CPT/HCPCS: 99281

== ENCOUNTER → 2023-01-15 | Outpatient (CLI) | payer OTHER ==
[2023-01-15 21:21] LABS: Basophils # (A) 0.07 X 10*3/uL (0.00-0.10); Basophils % (A) 1.1 %; Eosinophils # (A) 0.29 X 10*3/uL (0.04-0.35); Eosinophils % (A) 4.7 %; HCT 46.4 % (37.2-46.3); HGB 15.3 d/dL (12.0-15.0); Lymphocytes # (A) 2.46 X 10*3/uL (0.90-5.00); Lymphocytes % (A) 40.3 %; MCH 31.3 pg (27.0-32.0); MCV 94.9 FL (80.0-97.0); Mean Platelet Volume 10.1 FL (9.5-12.2); Monocytes # (A) 0.38 X 10*3/uL (0.20-1.00); Monocytes % (A) 6.2 %; NRBC Per 100 WBC 0 X 10*3/uL (0.00-0.01); Neutrophils % (A) 47.5 %; Platelet Count 254 X 10*3/uL (140-440); RBC 4.89 X 10*6/uL (4.10-5.20); RDW 11.9 % (11.5-14.5); WBC 6.11 X 10*3/uL (4.50-10.00)
[2023-01-15 21:57] LABS: ALT 9 U/L (8-44); AST 16 U/L (13-35); Albumin 4.9 d/dL (3.8-4.9); Albumin/Globulin Ratio 1.96 Ratio (1.60-3.17); Alkaline Phosphatase 58 U/L (41-126); BUN/Creat Ratio 13.14 Ratio (12.00-20.00); Blood Urea Nitrogen 9.2 mg/dL (9.0-27.0); Calcium 9.6 mg/dL (8.7-10.3); Chloride 105 mmol/L (96-109); Globulin 2.5 d/dL (1.6-3.3); Glucose 95 mg/dL (70-110); Potassium 4.6 mmol/L (3.5-5.5); Sodium 140 mmol/L (135-145); Total Bilirubin 0.5 mg/dL (0.3-1.2); Total Protein 7.4 d/dL (6.2-8.2)
[2023-01-16 01:19] LABS: Gliadin AB IgA, Deaminated Negative (Negative); Gliadin AB IgA, Unit 1.2 U/mL; Gliadin AB IgG, Deaminated Negative (Negative); Gliadin AB IgG, Unit <0.4 U/mL
== END | disposition home or self-care (01) ==
LOC: LABWHC1 12:07
PROVIDERS: ATTEND Internal Medicine Gastroenterology
DX: K52.9 Noninfective gastroenteritis and colitis, unspecified (principal)
CPT/HCPCS: 36415; 80053; 83516; 85025

== ENCOUNTER 2023-05-22 13:36 | Observation (INO) | payer OTHER ==
[2023-05-22 14:29] LABS: Basophils # (A) 0.1 k/uL (0-0.2); Basophils % (A) 1 %; Eosinophils # (A) 0.3 k/uL (0-0.7); Eosinophils % (A) 3 %; HCT 49.6 % (34.0-46.0); HGB 16.6 gm/dL (11.4-16.0); Lymphocytes # (A) 2.4 k/uL (1.0-4.8); Lymphocytes % (A) 28 %; MCH 31.7 pg (25.0-35.0); MCHC 33.4 g/dL (31.0-37.0); MCV 94.7 fL (80.0-100.0); Mean Platelet Volume 7.3; Monocytes # (A) 0.3 k/uL (0-1.0); Monocytes % (A) 3 %; Neutrophils # (A) 5.3 k/uL (1.3-7.7); Neutrophils % (A) 63 %; Platelet Count 302 k/uL (150-450); RBC 5.24 m/uL (3.80-5.40); RDW 11.8 % (11.5-15.5); WBC 8.4 k/uL (3.8-10.6)
[2023-05-22 14:40] LABS: ALT 12 U/L (4-34); AST 19 U/L (14-36); African American GFR (CKD) >90 (>60 ml/min/1.73 sqM); Albumin 4.6 g/dL (3.5-5.0); Alkaline Phosphatase 68 U/L (38-126); Anion Gap 8 mmol/L; Blood Urea Nitrogen 10 mg/dL (7-17); Calcium 9.7 mg/dL (8.4-10.2); Carbon Dioxide 24 mmol/L (22-30); Chloride 107 mmol/L (98-107); Glucose 106 mg/dL (74-99); Magnesium 2.1 mg/dL (1.6-2.3); Non-African American GFR(CKD) >90 (>60 ml/min/1.73 sqM); Potassium 4.4 mmol/L (3.5-5.1); Sodium 139 mmol/L (137-145); Total Bilirubin 0.6 mg/dL (0.2-1.3)
[2023-05-22 14:46] LABS: Partial Thromboplastin Time 26.6 sec (22.0-30.0); Prothrombin Time 10.8 sec (10.0-12.5)
--- NOTE | 2023-05-22 15:05 | ED ---
General Adult HPI - General Chief complaint: Chest Pain Stated complaint: Abn stress test Time Seen by Provider: 05/22/23 13:52 Source: patient, RN notes reviewed, old records reviewed Mode of arrival: ambulatory Limitations: no limitations - History of Present Illness Initial comments: 37-year-old female sent to the emergency department for admission and heart catheterization. Patient was sent by cardiology with abnormal stress test. She has had intermittent chest pain for approximately 1 year but this has significantly worsened over the past 3 weeks. - Related Data Home Medications Medication Instructions Recorded Confirmed Ergocalciferol [Vitamin D2 (1250 1,250 mcg PO MO 11/04/20 11/04/20 Mcg = 43296 Iu)] Teriflunomide [Aubagio] 14 mg PO DAILY 11/04/20 11/04/20 Venlafaxine HCl ER [Effexor Xr] 150 mg PO DAILY 11/04/20 11/04/20 Previous Rx's Medication Instructions Recorded Baclofen [Lioresal] 10 mg PO TID #21 tablet 11/04/20 predniSONE [Deltasone] 100 mg PO BID #14 tab 11/04/20 predniSONE [Deltasone] 80 mg PO DAILY PRN 30 Days #120 tab 11/11/20 Allergies Allergy/AdvReac Type Severity Reaction Status Date / Time No Known Allergies Allergy Verified 05/22/23 13:59 Review of Systems ROS Statement: Those systems with pertinent positive or pertinent negative responses have been documented in the HPI. ROS Other: All systems not noted in ROS Statement are negative. Past Medical History Past Medical History: Cancer, GERD/Reflux Additional Past Medical History / Comment(s): Pt recently worked up for multiple sclerosis thru [facility]-she states she has 2 brain lesions and a cervical lesion and has had right sided weakness upper and lower extremities- placed on steroids and it has resolved and had a spinal tap on 10/01/17-does not know results yet but states she is told it is likely MS, history of cervical cancer at age 17 with surgery, migraines, small hiatal hernia. History of Any Multi-Drug Resistant Organisms: None Reported Past Surgical History: No Surgical Hx Reported Additional Past Surgical History / Comment(s): 10/01/17 LP at [facility], 10/03/17 blood patch, colposcopy, EGD, removal of wisdom teeth Past Anesthesia/Blood Transfusion Reactions: No Reported Reaction Past Psychological History: No Psychological Hx Reported Smoking Status: Vaper Past Alcohol Use History: None Reported Past Drug Use History: Marijuana - Past Family History Father Family Medical History: Hypertension Mother Family Medical History: Rheumatoid Arthritis (RA) General Exam Limitations: no limitations General appearance: alert, in no apparent distress Head exam: Present: atraumatic, normocephalic Eye exam: Present: normal appearance, PERRL ENT exam: Present: normal exam Neck exam: Present: normal inspection. Absent: tenderness, meningismus Respiratory exam: Present: normal lung sounds bilaterally. Absent: respiratory distress, wheezes Cardiovascular Exam: Present: regular rate, normal rhythm GI/Abdominal exam: Present: soft. Absent: distended, tenderness, guarding Extremities exam: Present: normal inspection, normal capillary refill. Absent: pedal edema Neurological exam: Present: alert, oriented X3, CN II-XII intact. Absent: motor sensory deficit Psychiatric exam: Present: normal affect, normal mood Skin exam: Present: warm, dry, intact. Absent: cyanosis, diaphoretic Course Vital Signs 05/22/23 05/22/23 13:56 15:31 Temperature 98 F Pulse Rate 86 98 Respiratory 18 18 Rate Blood Pressure 131/85 118/78 O2 Sat by Pulse 98 100 Oximetry Medical Decision Making - Medical Decision Making Was pt. sent in by a medical professional or institution (, PA, STUFFING MACHINE OPERATOR, urgent care, hospital, or senior care...) When possible be specific @ -No Did you speak to anyone other than the patient for history (EMS, parent, family, police, friend...)? What history was obtained from this source @ -No Did you review nursing and triage notes (agree or disagree)? Why? @ -I reviewed and agree with nursing and triage notes Were old charts reviewed (outside hosp., previous admission, EMS record, old EKG, old radiological studies, urgent care reports/EKG's, senior care records)? Report findings @ -No old charts were reviewed Differential Diagnosis (chest pain, altered mental status, abdominal pain women, abdominal pain men, vaginal bleeding, weakness, fever, dyspnea, syncope, headache, dizziness, GI bleed, back pain, seizure, CVA, palpatations, mental health, musculoskeletal)? @ -Differential Chest Pain: Stable Angina, Unstable Angina, STEMI, NSTEMI Aortic Dissection, Pneumothorax, Musculoskeletal, Esophageal Spasm GERD, Cholecystitis, Pancreatitis, Zoster, this is not meant to be an all-inclusive list. EKG interpreted by me (3pts min.). @ -Sinus rhythm rate of 83 DC interval 103, QRS duration 88, QTc 396, no ST segment elevation X-rays interpreted by me (1pt min.). @Chest x-ray is negative for acute cardiopulmonary findings. CT interpreted by me (1pt min.). @ -None done U/S interpreted by me (1pt. min.). @ -None done What testing was considered but not performed or refused? (CT, X-rays, U/S, labs)? Why? @ -None What meds were considered but not given or refused? Why? @ -None Did you discuss the management of the patient with other professionals (professionals i.e. , PA, STUFFING MACHINE OPERATOR, lab, RT, psych nurse, nursing home social worker, field support specialist, teacher, chief security and safety officer, high risk case manager)? Give summary @ -Dr. Abdalla Was smoking cessation discussed for >3mins.? @ -No Was critical care preformed (if so, how long)? @ -No Were there social determinants of health that impacted care today? How? (Homelessness, low income, unemployed, alcoholism, drug addiction, transportation, low edu. Level, literacy, decrease access to med. care, alf, rehab)? @ -No Was there de-escalation of care discussed even if they declined (Discuss DNR or withdrawal of care, Hospice)? DNR status @ -No What co-morbidities impacted this encounter? (DM, HTN, Smoking, COPD, CAD, Cancer, CVA, ARF, Chemo, Hep., AIDS, mental health diagnosis, sleep apnea, morbid obesity)? @ -None Was patient admitted / discharged? Hospital course, mention meds given and route, prescriptions, significant lab abnormalities, going to OR and other pertinent info. @ -37-year-old female with worsening chronic chest pain who presents with abnormal stress test. The patient was sent in for plans of heart catheterization with Dr. Laureano. Her EKG is sinus rhythm without ST segment changes. She has normal labs. She will be admitted for serial cardiac enzymes and cardiology consultation and likely heart catheterization. Undiagnosed new problem with uncertain prognosis? @ -No Drug Therapy requiring intensive monitoring for toxicity (Heparin, Nitro, Insulin, Cardizem)? @ -No Were any procedures done? @ -No Diagnosis/symptom? @Chest pain, abnormal stress test Acute, or Chronic, or Acute on Chronic? @ -Acute Uncomplicated (without systemic symptoms) or Complicated (systemic symptoms)? @ -[complicated Side effects of treatment? @ -No Exacerbation, Progression, or Severe Exacerbation? @ -No Poses a threat to life or bodily function? How? (Chest pain, [place], [place], pneumonia, PE, COPD, DKA, ARF, appy, cholecystitis, CVA, Diverticulitis, Homicidal, Suicidal, threat to staff... and all critical care pts) @ -yes, cp - Lab Data Result diagrams: 05/22/23 14:05 05/22/23 14:05 Lab Results 05/22/23 05/22/23 05/22/23 Range/Units 14:05 14:05 14:05 WBC 8.4 (3.8-10.6) k/uL RBC 5.24 (3.80-5.40) m/uL Hgb 16.6 H (11.4-16.0) gm/dL Hct 49.6 H (34.0-46.0) % MCV 94.7 (80.0-100.0) fL MCH 31.7 (25.0-35.0) pg MCHC 33.4 (31.0-37.0) g/dL RDW 11.8 (11.5-15.5) % Plt Count 302 (150-450) k/uL MPV 7.3 Neutrophils % 63 % Lymphocytes % 28 % Monocytes % 3 % Eosinophils % 3 % Basophils % 1 % Neutrophils # 5.3 (1.3-7.7) k/uL Lymphocytes # 2.4 (1.0-4.8) k/uL Monocytes # 0.3 (0-1.0) k/uL Eosinophils # 0.3 (0-0.7) k/uL Basophils # 0.1 (0-0.2) k/uL PT 10.8 (10.0-12.5) sec INR 1.0 (<1.2) APTT 26.6 (22.0-30.0) sec Sodium 139 (137-145) mmol/L Potassium 4.4 (3.5-5.1) mmol/L Chloride 107 (98-107) mmol/L Carbon Dioxide 24 (22-30) mmol/L Anion Gap 8 mmol/L BUN 10 (7-17) mg/dL Creatinine 0.55 (0.52-1.04) mg/dL Est GFR (CKD-EPI)AfAm >90 (>60 ml/min/1.73 sqM) Est GFR (CKD-EPI)NonAf >90 (>60 ml/min/1.73 sqM) Glucose 106 H (74-99) mg/dL Calcium 9.7 (8.4-10.2) mg/dL Magnesium 2.1 (1.6-2.3) mg/dL Total Bilirubin 0.6 (0.2-1.3) mg/dL AST 19 (14-36) U/L ALT 12 (4-34) U/L Alkaline Phosphatase 68 (38-126) U/L Troponin I (0.000-0.034) ng/mL Total Protein 8.0 (6.3-8.2) g/dL Albumin 4.6 (3.5-5.0) g/dL 05/22/23 Range/Units 14:05 WBC (3.8-10.6) k/uL RBC (3.80-5.40) m/uL Hgb (11.4-16.0) gm/dL Hct (34.0-46.0) % MCV (80.0-100.0) fL MCH (25.0-35.0) pg MCHC (31.0-37.0) g/dL RDW (11.5-15.5) % Plt Count (150-450) k/uL MPV Neutrophils % % Lymphocytes % % Monocytes % % Eosinophils % % Basophils % % Neutrophils # (1.3-7.7) k/uL Lymphocytes # (1.0-4.8) k/uL Monocytes # (0-1.0) k/uL Eosinophils # (0-0.7) k/uL Basophils # (0-0.2) k/uL PT (10.0-12.5) sec INR (<1.2) APTT (22.0-30.0) sec Sodium (137-145) mmol/L Potassium (3.5-5.1) mmol/L Chloride (98-107) mmol/L Carbon Dioxide (22-30) mmol/L Anion Gap mmol/L BUN (7-17) mg/dL Creatinine (0.52-1.04) mg/dL Est GFR (CKD-EPI)AfAm (>60 ml/min/1.73 sqM) Est GFR (CKD-EPI)NonAf (>60 ml/min/1.73 sqM) Glucose (74-99) mg/dL Calcium (8.4-10.2) mg/dL Magnesium (1.6-2.3) mg/dL Total Bilirubin (0.2-1.3) mg/dL AST (14-36) U/L ALT (4-34) U/L Alkaline Phosphatase (38-126) U/L Troponin I <0.012 (0.000-0.034) ng/mL Total Protein (6.3-8.2) g/dL Albumin (3.5-5.0) g/dL Disposition Clinical Impression: Chest pain Disposition: ADMITTED IP TO THIS [facility] Condition: Stable Is patient prescribed a controlled substance at d/c from ED?: No Referrals: Kenny Rangel DO [Primary Care Provider] - 1-2 days Time of Disposition: 15:37
--- NOTE | 2023-05-22 15:15 | XR ---
EXAMINATION TYPE: XR chest 2V DATE OF EXAM: 05/22/2023 3:08 PM CLINICAL INDICATION:Female, 37 years old with history of Chest Pain; COMPARISON: Chest radiographs from 11/04/2020 TECHNIQUE: XR chest 2V Frontal and lateral views of the chest. FINDINGS: Lungs/Pleura: There is no evidence of pleural effusion, focal consolidation, or pneumothorax. Pulmonary vascularity: Unremarkable. Heart/mediastinum: Cardiomediastinal silhouette is unremarkable. Musculoskeletal: No acute osseous pathology. IMPRESSION: No acute cardiopulmonary disease/process.
[2023-05-22] MEDS ORDERED: NALOXONE 0.4 MG/ML 1 ML VIAL IV PRN (15:34)
[2023-05-22] MEDS ORDERED: ACETAMINOPHEN TAB 325 MG TAB PO PRN (15:34)
[2023-05-22] MEDS ORDERED: SODIUM CHLORIDE 0.9% 1,000 ML IV SCH (15:45)
[2023-05-22] MEDS ORDERED: NICOTINE GUM (POLACRILEX) 2 MG GUM BUCCAL PRN (16:11)
[2023-05-22] MEDS ORDERED: CALCIUM CARBONATE 500 MG CHEWABLE PO PRN (16:11)
[2023-05-22] MEDS ORDERED: ONDANSETRON 4 MG/2 ML VIAL IVP PRN (16:11)
[2023-05-22] MEDS ORDERED: HYDROcodone/APAP 5-325MG 1 EACH TAB PO PRN (16:11)
[2023-05-22] MEDS ORDERED: MELATONIN 3 MG TABLET PO PRN (16:11)
[2023-05-22] MEDS ORDERED: NITROGLYCERIN SL TABS 0.4 MG TAB SUBLINGUAL PRN (16:11)
--- NOTE | 2023-05-22 16:14 | P.HPIM ---
History of Present Illness H&P Date: 05/22/23 Patient is a 37-year-old female with GERD, prior cervical cancer, and migraines who initially came in for outpatient stress testing. She underwent exercise stress test with a Felipe protocol she was able to achieve 12.1 METS but then started having chest discomfort at a 3 out of 10. She did have an abnormal EKG response with frequent PVCs on recovery. Dr. Chaves asked the patient to come to the ER for possible need for cardiac catheterization. On arrival to the emergency department her vital signs are within normal limits. Laboratory analysis included CBC, coags, CMP, troponin which were remarkable for glucose of 106 and hemoglobin of 16.6. Chest x-ray showed no acute cardiopulmonary process. EKG showed no evidence of acute ischemia. Arrangements are made for observation. Patient seen and examined at bedside. She reports that for the last 3 weeks she has been having a "thumping" sensation in her chest. It comes and goes but occurs randomly. She states she notices it frequently at night. It is associated with some shortness of breath. She denies any associated nausea or lightheaded and dizziness. It always stays in the left side of her chest and feels as thumping. She has chronic intermittent tingling into her left hand due to her diagnosis of multiple sclerosis so she is unsure if there is any associated tingling. She reports that both her paternal and maternal grandmothers had coronary artery disease but lived well into their 80s. Her brother is in his 40s and has atrial fibrillation. Vital signs reviewed General: nontoxic, no distress, appears at stated age Derm: warm, dry Eyes: EOMI, no lid lag, anicteric sclera, pupils equal round reactive to light ENT: Nose and ears atraumatic Cardiovascular: S1S2 reg, no murmur, no edema Lungs: clear to auscultation bilateral, no rhonchi, no rales, no wheeze, no accessory muscle use Abdominal: soft, nontender to palpation, no guarding Ext: no gross muscle atrophy, no contractures Neuro: CN II-XII grossly intact, No focal neuro deficits Psych: Alert, oriented, appropriate affect Assessment/Plan: Palpitations with abnormal stress test -Trend troponin, first is negative -Aspirin 81 mg daily, Lipitor 40 mg daily -Cardiology consultation -N.p.o. after midnight -Telemetry Chronic: Migraines Anxiety GERD Multiple sclerosis Imaging: As per HPI and EKG with normal sinus rhythm at a rate of 83, normal axis, normal intervals, nonspecific ST-T wave changes with prominent U wave. Data Review: As per HPI The patient is placed in observation with an anticipated less than 2 midnight stay for abnormal stress test with chest pain DVT prophylaxis: Early ambulation Anticipated discharge date: 24 to [address]: Home This dictation was prepared using Goji voice recognition software. Though every attempt is made to correct errors during dictation some may still exist. Past Medical History Past Medical History: Cancer, GERD/Reflux Additional Past Medical History / Comment(s): MS, history of cervical cancer at age 17 with surgery, migraines, small hiatal hernia. History of Any Multi-Drug Resistant Organisms: None Reported Past Surgical History: No Surgical Hx Reported Additional Past Surgical History / Comment(s): 10/01/17 LP at [facility], 10/03/17 blood patch, colposcopy, EGD, removal of wisdom teeth Past Anesthesia/Blood Transfusion Reactions: No Reported Reaction Past Psychological History: No Psychological Hx Reported Smoking Status: Vaper Past Alcohol Use History: None Reported Past Drug Use History: Marijuana - Past Family History Father Family Medical History: Hypertension Mother Family Medical History: Rheumatoid Arthritis (RA) Medications and Allergies Home Medications Medication Instructions Recorded Confirmed Type Venlafaxine HCl ER [Effexor Xr] 150 mg PO DAILY 11/04/20 05/22/23 History ALPRAZolam [Xanax] 1 mg PO TID PRN 05/22/23 05/22/23 History Fluticasone Nasal Guild [Flonase 2 spr EA NOSTRIL DAILY 05/22/23 05/22/23 History Nasal Guild] Allergies Allergy/AdvReac Type Severity Reaction Status Date / Time No Known Allergies Allergy Verified 05/22/23 16:05 Physical Exam Osteopathic Statement: *. No significant issues noted on an osteopathic structural exam other than those noted in the History and Physical/Consult. Vitals: Vital Signs Temp Pulse Pulse Resp BP Pulse Ox 05/22/23 16:06 75 78 18 121/76 97 05/22/23 15:31 98 18 118/78 100 05/22/23 13:56 98 F 86 18 131/85 98 Intake and Output 05/22/23 05/22/23 05/22/23 06:59 14:59 22:59 Other: Weight 63.503 kg Results CBC & Chem 7: 05/22/23 14:05 05/22/23 14:05 Labs: Abnormal Lab Results - Last 24 Hours (Table) 05/22/23 05/22/23 Range/Units 14:05 14:05 Hgb 16.6 H (11.4-16.0) gm/dL Hct 49.6 H (34.0-46.0) % Glucose 106 H (74-99) mg/dL
[2023-05-22 17:04] VITALS: RESP 16
[2023-05-23 06:34] VITALS: TEMP 98.4
[2023-05-23 08:39] VITALS: BP 102/71; PULSE 68
--- NOTE | 2023-05-23 08:59 | P.CRDCN ---
History of Present Illness History of present illness: HISTORY OF PRESENT ILLNESS: This is a 37-year-old female with a past medical history significant for anxiety, nicotine dependence, and marijuana use. Patient does not follow with a tool repair technician. We have been asked to see the patient in consultation for abnormal stress test. Patient examined at the bedside. Patient presented to the hospital secondary to an abnormal stress test. Patient states she has been having palpitations for the past 3 to 4 years. She states her PCP noted PVCs on an EKG in the past but was not concerned at that time. She states the palpitations have not bothered her until the past 3 weeks when she has began to have pain with the palpitations. She states the pain will be on the left side of her chest and under her left breast. She denied any radiation of the pain. She does report feeling short of breath when she gets these palpitations. She states the pain pain will eventually go away on its own. She does report that when she lays down at night she begins to have chest pain recently. She denies any worsening pain with deep inspiration, movement, or chest wall palpation. She does report vaping nicotine on a daily basis and smoking marijuana. She reports occasional alcohol use. She denies a history of hypertension, hyperlipidemia, or diabetes. She denies a family history of premature coronary artery disease. She does report her brother has a history of atrial fibrillation. She underwent an exercise stress test yesterday that was ordered by her primary care physician. Patient had excellent exercise tolerance with abnormal EKG response to exercise with frequent PVCs in recovery. She does report that she had chest pain during her stress test and also in the recovery phase. She was evaluated by the cardiology nurse practitioner who spoke with Dr. Chaves and recommendations were given to the patient to either proceed to the emergency room or schedule an appointment with Dr. Chaves in the office. The patient states that she went home and called the office but there was not an appointment available for several weeks so she decided to come back to the emergency room. She denies any chest pain or pressure this morning. DIAGNOSTICS: EKG reveals sinus mechanism with no signs of acute ischemia. Chest xray negative for acute cardiopulmonary disease Laboratory data: Troponin negative x 3 Current home cardiac medications include none. Most recent echocardiogram obtained on May 22, 2023 revealed ejection fraction 45 to 50%, mild to moderate mitral regurgitation, mild tricuspid regurgitation and mild pulmonic regurgitation Cardiac catheterization history: Patient denies REVIEW OF SYSTEMS: At the time of my exam: CONSTITUTIONAL: Denies fever or chills. HEENT: Denies blurred vision, vision changes, or eye pain. Denies hemoptysis CARDIOVASCULAR: Denies chest pain. Denies orthopnea. Denies PND. Denies palpitations RESPIRATORY: Denies shortness of breath. GASTROINTESTINAL: Denies abdominal pain. Denies nausea or vomiting. HEMATOLOGIC: Denies bleeding disorders. GENITOURINARY: Denies any blood in urine. SKIN: Denies pruitis. Denies rash. PHYSICAL EXAM: VITAL SIGNS: Reviewed. GENERAL: Well-developed in no acute distress. HEENT: Head is normocephalic. Pupils are equal, round. Sclerae anicteric. Mucous membranes of the mouth are moist. Neck supple. No JVD or thyromegaly LUNGS: Respirations even and unlabored. Lungs essentially clear to auscultation bilaterally. HEART: Regular rate and rhythm. S1 and S2 heard. ABDOMEN: Soft. Nondistended. Nontender. EXTREMITIES: Normal range of motion. No clubbing or cyanosis. Peripheral pulses intact. No lower extremity edema NEUROLOGIC: Awake and alert. Oriented x 3. ASSESSMENT: Palpitations with chest pain, troponin negative x 3 Abnormal stress test with abnormal EKG response to exercise with frequent PVCs, May 22, 2023 Mild cardiomyopathy, EF 45 to 50%, etiology unclear, may be related to frequent PVCs Mild to moderate mitral regurgitation Nicotine dependence Marijuana use Anxiety History of multiple sclerosis PLAN: An acute coronary event has been ruled out Continue telemetry monitoring Patient will be discharged home this afternoon from a cardiac standpoint Patient is to chart picker a 2-week event monitor from the cardiology office postdischarge to assess PVC burden She will follow-up with Dr. Alba in 3 weeks Nurse practitioner note has been reviewed by physician. Signing provider agrees with the documented findings, assessment, and plan of care documented by [employer] as a scribe. Past Medical History Past Medical History: Cancer, GERD/Reflux Additional Past Medical History / Comment(s): MS, history of cervical cancer at age 17 with surgery, migraines, small hiatal hernia. MS 2018. History of Any Multi-Drug Resistant Organisms: None Reported Past Surgical History: No Surgical Hx Reported Additional Past Surgical History / Comment(s): 10/01/17 LP at [facility], 10/03/17 blood patch, endoscopy. EGD, removal of wisdom teeth Past Anesthesia/Blood Transfusion Reactions: No Reported Reaction Past Psychological History: No Psychological Hx Reported Additional Psychological History / Comment(s): Pt denies any history of depression but states she has some anxiety. She resides with her fijaidene and her 3 children, ages 8, 11 and 16 yrs. She is independent. 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 Smoking Status: Current every day smoker, Vaper Past Alcohol Use History: None Reported Additional Past Alcohol Use History / Comment(s): Pt started smoking in 2001 and quit in 2008. Past Drug Use History: Marijuana Additional Drug Use History / Comment(s): Pt states she smoked marijuana on occasion. - Past Family History Father Family Medical History: Hypertension Mother Family Medical History: Rheumatoid Arthritis (RA) Medications and Allergies Home Medications Medication Instructions Recorded Confirmed Type Venlafaxine HCl ER [Effexor Xr] 150 mg PO DAILY 11/04/20 05/22/23 History ALPRAZolam [Xanax] 1 mg PO TID PRN 05/22/23 05/22/23 History Fluticasone Nasal [place] [Flonase 2 spr EA NOSTRIL DAILY 05/22/23 05/22/23 History Nasal [place]] Allergies Allergy/AdvReac Type Severity Reaction Status Date / Time No Known Allergies Allergy Verified 05/22/23 16:05 Physical Exam Vitals: Vital Signs Temp Pulse Pulse Pulse Resp BP BP 05/23/23 04:00 98.4 F 64 16 105/69 05/23/23 02:00 78 65 16 05/23/23 00:00 98.1 F 65 16 101/69 05/22/23 20:00 97.9 F 78 65 16 107/75 05/22/23 16:53 72 16 116/78 05/22/23 16:06 75 78 18 121/76 05/22/23 15:31 98 18 118/78 05/22/23 13:56 98 F 86 18 131/85 Pulse Ox 05/23/23 04:00 99 05/23/23 02:00 05/23/23 00:00 98 05/22/23 20:00 99 05/22/23 16:53 99 05/22/23 16:06 97 05/22/23 15:31 100 05/22/23 13:56 98 Intake and Output 05/22/23 05/23/23 05/23/23 22:59 06:59 14:59 Intake Total 358 Balance 358 Intake: Oral 358 Other: Weight 63.503 kg Results 05/22/23 14:05 05/22/23 14:05 Cardiac Enzymes 05/22/23 05/22/23 05/22/23 Range/Units 14:05 14:05 17:36 AST 19 (14-36) U/L Troponin I <0.012 <0.012 (0.000-0.034) ng/mL 05/22/23 Range/Units 20:38 AST (14-36) U/L Troponin I <0.012 (0.000-0.034) ng/mL Coagulation 05/22/23 Range/Units 14:05 PT 10.8 (10.0-12.5) sec APTT 26.6 (22.0-30.0) sec CBC 05/22/23 Range/Units 14:05 WBC 8.4 (3.8-10.6) k/uL RBC 5.24 (3.80-5.40) m/uL Hgb 16.6 H (11.4-16.0) gm/dL Hct 49.6 H (34.0-46.0) % Plt Count 302 (150-450) k/uL Comprehensive Metabolic Panel 05/22/23 Range/Units 14:05 Sodium 139 (137-145) mmol/L Potassium 4.4 (3.5-5.1) mmol/L Chloride 107 (98-107) mmol/L Carbon Dioxide 24 (22-30) mmol/L BUN 10 (7-17) mg/dL Creatinine 0.55 (0.52-1.04) mg/dL Glucose 106 H (74-99) mg/dL Calcium 9.7 (8.4-10.2) mg/dL AST 19 (14-36) U/L ALT 12 (4-34) U/L Alkaline Phosphatase 68 (38-126) U/L Total Protein 8.0 (6.3-8.2) g/dL Albumin 4.6 (3.5-5.0) g/dL Current Medications Generic Name Dose Route Start Last Admin Trade Name Freq PRN Reason Stop Dose Admin Acetaminophen 650 mg 05/22/23 15:34 Acetaminophen Tab 325 Mg Tab PO Q6HR PRN Mild Pain or Fever > 100.5 Hydrocodone Bitart/Acetaminophen 1 each 05/22/23 16:11 Hydrocodone/Apap 5-325mg 1 Each Tab PO Q4HR PRN Moderate Pain (Scale 4 to 6) Aspirin 81 mg 05/23/23 09:00 Aspirin 81 Mg PO DAILY [facility] Atorvastatin Calcium 40 mg 05/23/23 09:00 Atorvastatin 40 Mg Tab PO DAILY [facility] Calcium Carbonate/Glycine 1,000 mg 05/22/23 16:11 Calcium Carbonate 500 Mg Chewable PO Q4HR PRN Dyspepsia Fluticasone Propionate 2 spray 05/23/23 09:00 Fluticasone 50mcg/[place] Nasal 16gm EA NOSTRIL DAILY [facility] Sodium Chloride 1,000 mls @ 75 mls/hr 05/22/23 15:45 05/22/23 16:10 Saline 0.9% IV 75 mls/hr .[id number] [facility] Administration Melatonin 3 mg 05/22/23 16:11 Melatonin 3 Mg Tablet PO HS PRN Insomnia Naloxone HCl 0.2 mg 05/22/23 15:34 Naloxone 0.4 Mg/Ml 1 Ml Vial IV Q2M PRN Opioid Reversal Nicotine Polacrilex 2 mg 05/22/23 16:11 Nicotine Gum (Polacrilex) 2 Mg Gum BUCCAL Q2HR PRN Nicotine Cravings Nitroglycerin 0.4 mg 05/22/23 16:11 Nitroglycerin Sl Tabs 0.4 Mg Tab SUBLINGUAL Q5M PRN Chest Pain Ondansetron HCl 4 mg 05/22/23 16:11 Ondansetron 4 Mg/2 Ml Vial IVP Q8HR PRN Nausea And Vomiting Venlafaxine HCl 150 mg 05/23/23 09:00 Venlafaxine Hcl Er 150 Mg Cap PO DAILY [facility] Intake and Output 05/22/23 05/23/23 05/23/23 22:59 06:59 14:59 Intake Total 358 Balance 358 Intake: Oral 358 Other: Weight 63.503 kg 05/22/23 14:05 05/22/23 14:05
[2023-05-23] MEDS ORDERED: VENLAFAXINE HCL ER 150 MG CAP PO SCH (09:00)
[2023-05-23] MEDS ORDERED: ASPIRIN 81 MG PO SCH (09:00)
[2023-05-23] MEDS ORDERED: FLUTICASONE 50MCG/SPRAY NASAL 16GM EA NOSTRIL SCH (09:00)
[2023-05-23] MEDS ORDERED: ATORVASTATIN 40 MG TAB PO SCH (09:00)
--- NOTE | 2023-05-23 11:11 | P.DS ---
Providers Date of admission: 05/22/23 15:35 Expected date of discharge: 05/23/23 Attending physician: Pamela Abdalla DO Consults: 05/22/23 15:34 Consult Physician Routine Consulting Provider: Charlie Chaves Consult Reason/Comments: CP, abnormal stree Do you want consulting provider notified?: Yes Primary care physician: Kenny Rangel Hospital Course: Discharge Diagnosis: Frequent PVCs Abnormal stress test Chest pain, ACS ruled out Mild systolic cardiomyopathy, EF 45 to 50% Nicotine dependence Hospital Course: 37-year-old female with GERD, prior cervical cancer, and migraines who initially came in for outpatient stress testing. She underwent exercise stress test with a Felipe protocol she was able to achieve 12.1 METS but then started having chest discomfort at a 3 out of 10. She did have an abnormal EKG response with frequent PVCs on recovery. On arrival to the emergency department her vital signs are within normal limits. Laboratory analysis included CBC, coags, CMP, troponin which were remarkable for glucose of 106 and hemoglobin of 16.6. Chest x-ray showed no acute cardiopulmonary process. EKG showed no evidence of acute ischemia. Arrangements are made for observation. Troponin negative x 3. Patient was evaluated by cardiology. Recommending event monitor for 2 weeks to assess PVC burden, follow-up with cardiology outpatient. Outpatient echoc ardiogram recently revealed mild cardiomyopathy with a EF of 45 to 50%. Cardiology to consider beta-arya and FCO inhibitor/ARB outpatient. Patient seen and examined at bedside. Vital signs reviewed and stable. General: Nontoxic, no distress, appears at stated age Derm: Warm, dry Head: Atraumatic, normocephalic, symmetric Eyes: EOMI, no lid lag, anicteric sclera Mouth: No lip lesion, mucus membranes moist Cardiovascular: S1S2 reg, no murmur Lungs: CTA bilateral, no rhonchi, no rales, no accessory muscle use Abdominal: Soft, nontender to palpation, no guarding, no appreciable organomegal y Ext: No gross muscle atrophy, no edema, no contractures Neuro: CN II-XI grossly intact, no focal neuro deficits Psych: Alert, oriented, appropriate affect A total of 33 minutes of time were spent preparing this complex discharge summary. Patient was discharged on 05/23/23 at 1107. Patient Condition at Discharge: Stable Plan - Discharge Summary Discharge Rx Participant: No New Discharge Prescriptions: Continue Venlafaxine HCl ER [Effexor XR] 150 mg PO DAILY Fluticasone Nasal [place] [Flonase Nasal [place]] 2 spr EA NOSTRIL DAILY ALPRAZolam [Xanax] 1 mg PO TID PRN PRN Reason: Anxiety Discharge Medication List Venlafaxine HCl ER [Effexor XR] 150 mg PO DAILY 11/04/20 [History] ALPRAZolam [Xanax] 1 mg PO TID PRN 05/22/23 [History] Fluticasone Nasal [place] [Flonase Nasal [place]] 2 spr EA NOSTRIL DAILY 05/22/23 [History] Follow up Appointment(s)/Referral(s): [facility] [Provider Group] - 05/23/23 (Stop by the office after discharge to product picker event monitor) Hollie Alba MD [STAFF PHYSICIAN] - 06/14/23 2:30 pm () Kenny Rangel DO [Primary Care Provider] - 1-2 days Patient Instructions/Handouts: Chest Pain (DC) Activity/Diet/Wound Care/Special Instructions: Please see cardiology. Discharge Disposition: HOME SELF-CARE
[2023-05-23 11:23] LABS: Chol/HDL Ratio 2.82 Ratio; LDL Cholesterol,Calculated 93.3 mg/dL (0.0-131.0); VLDL Calculation 14.36 mg/dL (5.00-40.00)
== END 2023-05-23 11:26 | disposition home or self-care (01) ==
LOC: EC 13:36 → 3SCARD 15:35
PROVIDERS: ADMIT Internal Medicine; ATTEND Internal Medicine
DX: R07.9 Chest pain, unspecified (principal); R00.2 Palpitations; R94.39 Abnormal result of other cardiovascular function study; K21.9 Gastro-esophageal reflux disease without esophagitis; G35 Multiple sclerosis; F41.9 Anxiety disorder, unspecified; I42.8 Other cardiomyopathies; I49.3 Ventricular premature depolarization; I34.0 Nonrheumatic mitral (valve) insufficiency; G43.909 Migraine, unspecified, not intractable, without status migrainosus; F12.90 Cannabis use, unspecified, uncomplicated; F17.290 Nicotine dependence, other tobacco product, uncomplicated; Z85.41 Personal history of malignant neoplasm of cervix uteri; Z79.52 Long term (current) use of systemic steroids; Z79.899 Other long term (current) drug therapy; Z82.49 Family history of ischemic heart disease and other diseases of the circulatory system
CPT/HCPCS: 99285; 36415; 93005; 80061; 80053; 83735; 84484; 85025; 85610; 85730; 71046; G0378 ×2

== ENCOUNTER → 2023-05-22 | Outpatient (CLI) | payer OTHER ==
--- NOTE | 2023-05-22 11:57 | CA ---
Exercise Stress Test Report Name: Azul Ortega Exam Date: 05/22/2023 11:08 Exam Location: [facility] Ht (in): 65 Wt (lb): 140 BSA: 1.70 Ordering Phys: Kenny Rangel DO Referring Phys: Addis Velazquez [facility] Technologist: Ren Ortega Age: 37 Gender: F : 1985 Procedure CPT: Indications: R07.89 chest pain ICD-10 Codes: Patient History: Medications: VENAFLAXIN Meds past 24 hrs: Pretest Chest Pain: STRESS TEST Felipe Protocol Exercise Duration (min:sec): 10:[address] Depressions (mm): Angina Score: Garcia Score: Resting HR (bpm): 75 Peak HR (bpm): 164 Resting BP (mmHg): 130 / 90 Peak BP (mmHg): 152 / 95 MPHR: 185 Target HR: 157 % MPHR: 89 METS: 12.1 Total Dose: Peak Dose: Atropine: Double Product: 15215 BP Response: Stress Termination: Reached target heart rate Stress Symptoms: CHEST DISCOMFORT ON A "3" LEVEL. FELT BETTER ONCE IN RECOVERY OF 10 MINUTES Stress Summary: ECG ANALYSIS Resting ECG: Stress ECG: CONCLUSIONS Excellent exercise tolerance Abnormal EKG response to exercise with frequent PVCs on the recovery Chest discomfort on recovery as well Overall abnormal stress test Dr. Charlie Chaves MD (Electronically Signed) Final Date: 22 May 2023 11:56
--- NOTE | 2023-05-22 17:50 | CA ---
Transthoracic Echo Report Name: Azul Ortega Age: 37 Gender: F : 1985 Exam Date: 05/22/2023 11:36 Exam Location: [facility] Ht (in): 65 Wt (lb): 140 Ordering Physician: Kenny Rangel DO Attending/Referring Phys: Addis Velazquez [facility] Process Improvement Analyst Yenny Duque [facility] Procedure CPT: Indications: R07.89 chest pain Cardiac Hx: Technical Quality: Fair Contrast 1: Total Dose (mL): Contrast 2: Total Dose (mL): MEASUREMENTS (Male / Female) Normal Values 2D ECHO LV Diastolic Diameter PLAX 4.6 cm 4.2 - 5.9 / 3.9 - 5.3 cm LV Systolic Diameter PLAX 3.5 cm IVS Diastolic Thickness 0.8 cm 0.6 - 1.0 / 0.6 - 0.9 cm LVPW Diastolic Thickness 0.7 cm 0.6 - 1.0 / 0.6 - 0.9 cm LV Relative Wall Thickness 0.3 LVOT Diameter 2.0 cm LV Diastolic Volume MOD BP 57.7 cm??? 67 - 155 / 56 - 104 cm??? LV Systolic Volume MOD BP 32.1 cm??? 22 - 58 / 19 - 49 cm??? LV Ejection Fraction MOD BP 44.5 % >= 55 % LV Cardiac Index MOD BP 1229.5 cm???/min???m??? LV Diastolic Volume MOD 4C 60.3 cm??? LV Systolic Volume MOD 4C 36.1 cm??? LV Ejection Fraction MOD 4C 40.2 % LV Cardiac Index MOD 4C 1160.9 cm???/min???m??? LV Diastolic Length 4C 6.9 cm LV Systolic Length 4C 6.0 cm LV Diastolic Volume MOD 2C 54.5 cm??? LV Systolic Volume MOD 2C 27.8 cm??? LV Ejection Fraction MOD 2C 48.9 % LV Cardiac Index MOD 2C 1277.4 cm???/min???m??? LV Diastolic Length 2C 6.7 cm LV Systolic Length 2C 5.8 cm Ascending Aorta Diameter 2.9 cm M-MODE Aortic Root Diameter MM 2.8 cm LA Systolic Diameter MM 1.8 cm LA Ao Ratio MM 0.7 AV Cusp Separation MM 2.1 cm DOPPLER AV Peak Velocity 105.1 cm/s AV Peak Gradient 4.4 mmHg AV Mean Velocity 76.8 cm/s AV Mean Gradient 2.5 mmHg AV Velocity Time Integral 16.7 cm LVOT Peak Velocity 92.5 cm/s LVOT Peak Gradient 3.4 mmHg LVOT Velocity Time Integral 15.4 cm LVOT Stroke Volume 47.2 cm??? LVOT Stroke Volume Index 27.8 ml/m??? LVOT Cardiac Index 2262.0 cm???/min???m??? AV Area Cont Eq vti 2.8 cm??? AV Area Cont Eq pk 2.7 cm??? Mitral E Point Velocity 42.0 cm/s Mitral A Point Velocity 48.4 cm/s Mitral E to A Ratio 0.9 MV Deceleration Time 254.1 ms LV E' Lateral Velocity 10.5 cm/s Mitral E to LV E' Lateral Ratio 4.0 LV E' Septal Velocity 9.8 cm/s Mitral E to LV E' Septal Ratio 4.3 TR Peak Velocity 216.3 cm/s TR Peak Gradient 18.7 mmHg Right Atrial Pressure 3.0 mmHg Pulmonary Artery Systolic Pressu 21.7 mmHg Right Ventricular Systolic Press 21.7 mmHg FINDINGS Left Ventricle Left ventricular wall thickness normal. Left ventricular cavity size normal. Mildly reduced global left ventricular systolic function. Left ventricular ejection fraction is estimated at 45-50%. Right Ventricle Normal right ventricular size. Right Atrium Normal right atrial size. Left Atrium Normal left atrial size. Mitral Valve Mitral valve thickened. Mild to moderate mitral regurgitation. Aortic Valve Trileaflet aortic valve. No aortic valve stenosis or regurgitation. Tricuspid Valve Structurally normal tricuspid valve. Mild tricuspid regurgitation. Pulmonic Valve Structurally normal pulmonic valve. Mild pulmonic regurgitation. Pericardium No pericardial effusion. Aorta Normal size aortic root and proximal ascending aorta. CONCLUSIONS Mildly impaired LV function. The EF is around 45-50% [id number] mitral regurgitation. The mitral valve leaflets are thickened Previewed by: Dr. Charlie Chaves MD (Electronically Signed) Final Date: 22 May 2023 17:50
== END | disposition home or self-care (01) ==
LOC: RADNMMAIN 10:24
PROVIDERS: ATTEND Family Medicine
DX: I34.89 Other nonrheumatic mitral valve disorders (principal); I34.0 Nonrheumatic mitral (valve) insufficiency; I49.3 Ventricular premature depolarization; I51.7 Cardiomegaly; R94.31 Abnormal electrocardiogram [ECG] [EKG]; R07.89 Other chest pain
CPT/HCPCS: 93017; 93306

== ENCOUNTER 2024-05-07 12:00 | Emergency (ER) | payer OTHER ==
--- NOTE | 2024-05-07 12:19 | ED ---
General Adult HPI - General Stated complaint: covid Time Seen by Provider: 05/07/24 12:18 Source: patient, RN notes reviewed Mode of arrival: ambulatory Limitations: no limitations - History of Present Illness Initial comments: Patient is a 38-year-old female presented to the ER for evaluation of feeling unwell. She states she feels "hot". Patient also admits to 1 episode of nausea and vomiting. No hematemesis or coffee-ground emesis. Patient reports generalized myalgias. Denies abdominal pain, chest pain, shortness of breath, urinary complaints, constipation/diarrhea or peripheral edema. Patient states she was exposed to COVID last week. History of MS for which she believes it making her discomfort worse. She has taken [id number] medications without relief including DayQuil and NyQuil. - Related Data Home Medications Medication Instructions Recorded Confirmed Venlafaxine HCl ER [Effexor XR] 150 mg PO DAILY 11/04/20 05/07/24 Previous Rx's Medication Instructions Recorded Nirmatrelvir/Ritonavir [Paxlovid 1 each PO BID 5 Days #10 each 05/07/24 300-100 mg Dose Pack] Allergies Allergy/AdvReac Type Severity Reaction Status Date / Time No Known Allergies Allergy Verified 05/07/24 16:42 Review of Systems ROS Statement: Those systems with pertinent positive or pertinent negative responses have been documented in the HPI. ROS Other: All systems not noted in ROS Statement are negative. Past Medical History Past Medical History: Cancer, GERD/Reflux Additional Past Medical History / Comment(s): MS, history of cervical cancer at age 17 with surgery, migraines, small hiatal hernia. MS 2018. History of Any Multi-Drug Resistant Organisms: None Reported Past Surgical History: No Surgical Hx Reported Additional Past Surgical History / Comment(s): 10/01/17 LP at [facility], 10/03/17 blood patch, endoscopy. EGD, removal of wisdom teeth Past Anesthesia/Blood Transfusion Reactions: No Reported Reaction Past Psychological History: No Psychological Hx Reported Additional Psychological History / Comment(s): Pt denies any history of depression but states she has some anxiety. She [facility] and her 3 children, ages 8, 11 and 16 yrs. She is independent. 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 Smoking Status: Current every day smoker, Vaper Past Alcohol Use History: None Reported Additional Past Alcohol Use History / Comment(s): Pt started smoking in 2001 and quit in 2008. Past Drug Use History: Marijuana Additional Drug Use History / Comment(s): Pt states she smoked marijuana on occasion. - Past Family History Father Family Medical History: Hypertension Mother Family Medical History: Rheumatoid Arthritis (RA) General Exam - General Exam Comments Initial Comments: Visual Physical Exam Vital signs reviewed General: Well-appearing, nontoxic, no acute distress. Head: Normocephalic, atraumatic Eyes: PERRLA, EOMI ENT: Airway patent Chest: Nonlabored breathing Skin: No visual rash, normal skin tone Neuro: Alert and oriented 3 Musculoskeletal: No gross abnormalities General appearance: alert, in no apparent distress ENT exam: Present: normal exam, mucous membranes moist Respiratory exam: Present: normal lung sounds bilaterally. Absent: respiratory distress, wheezes, rales, rhonchi, stridor Cardiovascular Exam: Present: regular rate, normal rhythm, normal heart sounds. Absent: systolic murmur, diastolic murmur, rubs, gallop, clicks GI/Abdominal exam: Present: soft, normal bowel sounds. Absent: distended, tenderness, guarding, rebound, rigid Neurological exam: Present: alert, oriented X3, CN II-XII intact Skin exam: Present: warm, dry, intact, normal color. Absent: rash Course Vital Signs 05/07/24 05/07/24 05/07/24 12:40 15:40 16:35 Temperature 97.3 F L 97.9 F 97.6 F Pulse Rate 91 62 59 L Respiratory 20 18 17 Rate Blood Pressure 93/64 117/79 127/90 O2 Sat by Pulse 100 98 100 Oximetry Medical Decision Making - Medical Decision Making I performed the quick note portion of this chart. Electronically signed by Zulay Ordaz PA-C Was pt. sent in by a medical professional or institution (JULIENNE Kelsey, HARDWARE INSTALLATION COORDINATOR, urgent care, hospital, or half-way...) When possible be specific @ -No Did you speak to anyone other than the patient for history (EMS, parent, family, police, friend...)? What history was obtained from this source @ -No Did you review nursing and triage notes (agree or disagree)? Why? @ -I reviewed and agree with nursing and triage notes Were old charts reviewed (outside hosp., previous admission, EMS record, old EKG, old radiological studies, urgent care reports/EKG's, half-way records)? Report findings @ -No old charts were reviewed Differential Diagnosis (chest pain, altered mental status, abdominal pain women, abdominal pain men, vaginal bleeding, weakness, fever, dyspnea, syncope, headache, dizziness, GI bleed, back pain, seizure, CVA, palpatations, mental health, musculoskeletal)? @ -COVID, RSV, influenza, viral sinusitis, pneumonia, strep pharyngitis, this list is not meant to be all-inclusive EKG interpreted by me (3pts min.). @ -None done X-rays interpreted by me (1pt min.). @ -CXR interpreted by me negative for focal consolidations. CT interpreted by me (1pt min.). @ -None done U/S interpreted by me (1pt. min.). @ -None done What testing was considered but not performed or refused? (CT, X-rays, U/S, labs)? Why? @ -None What meds were considered but not given or refused? Why? @ -None Did you discuss the management of the patient with other professionals (professionals i.e. , PA, HARDWARE INSTALLATION COORDINATOR, lab, RT, psych nurse, manager social work, tourist adviser, teacher, motorcycle police officer, case finisher)? Give summary @ -No Was smoking cessation discussed for >3mins.? @ -No Was critical care preformed (if so, how long)? @ -No Were there social determinants of health that impacted care today? How? (Homele ssness, low income, unemployed, alcoholism, drug addiction, transportation, low edu. Level, literacy, decrease access to med. care, prison, rehab)? @ -No Was there de-escalation of care discussed even if they declined (Discuss DNR or withdrawal of care, Hospice)? DNR status @ -No What co-morbidities impacted this encounter? (DM, HTN, Smoking, COPD, CAD, Cancer, CVA, ARF, Chemo, Hep., AIDS, mental health diagnosis, sleep apnea, morbid obesity)? @ -None Was patient admitted / discharged? Hospital course, mention meds given and route, prescriptions, significant lab abnormalities, going to OR and other pertinent info. @ -Discharge. 38-year-old female presenting to the ER for evaluation of feeling unwell. Upon rooming, history and physical exam completed. Vitals within acceptable limits. Patient is very tearful upon examination. COVID- positive. Laboratory studies unremarkable. Chest x-ray negative. Patient given IV fluids along with Tylenol. Patient was started on Paxlovid. Strict return parameters discussed. Patient discharged in stable condition with follow-up to PCP. Patient verbally expressed understanding and agreement with care plan. Case discussed with ED attending, Dr. oCle. Undiagnosed new problem with uncertain prognosis? @ -No Drug Therapy requiring intensive monitoring for toxicity (Heparin, Nitro, Insulin, Cardizem)? @ -No Were any procedures done? @ -No Diagnosis/symptom? @ -COVID-19/acute viral sinusitis Acute, or Chronic, or Acute on Chronic? @ -Acute Uncomplicated (without systemic symptoms) or Complicated (systemic symptoms)? @ -Uncomplicated Side effects of treatment? @ -No Exacerbation, Progression, or Severe Exacerbation? @ -No Poses a threat to life or bodily function? How? (Chest pain, USA, PR, pneumonia, PE, COPD, DKA, ARF, appy, cholecystitis, CVA, Diverticulitis, Homicidal, Suicidal, threat to staff... and all critical care pts) @ -No - Lab Data Result diagrams: 05/07/24 16:41 05/07/24 16:41 Lab Results 05/07/24 05/07/24 05/07/24 Range/Units 13:51 16:41 16:41 WBC 8.4 (3.8-10.6) k/uL RBC 5.21 (3.80-5.40) m/uL Hgb 16.3 H (11.4-16.0) gm/dL Hct 47.5 H (34.0-46.0) % MCV 91.1 (80.0-100.0) fL MCH 31.3 (25.0-35.0) pg MCHC 34.3 (31.0-37.0) g/dL RDW 12.2 (11.5-15.5) % Plt Count 236 (150-450) k/uL MPV 7.5 Neutrophils % 74 % Lymphocytes % 19 % Monocytes % 3 % Eosinophils % 2 % Basophils % 0 % Neutrophils # 6.2 (1.3-7.7) k/uL Lymphocytes # 1.6 (1.0-4.8) k/uL Monocytes # 0.2 (0-1.0) k/uL Eosinophils # 0.2 (0-0.7) k/uL Basophils # 0.0 (0-0.2) k/uL Sodium 141 (137-145) mmol/L Potassium 4.7 (3.5-5.1) mmol/L Chloride 107 (98-107) mmol/L Carbon Dioxide 24 (22-30) mmol/L Anion Gap 10 mmol/L BUN 11 (7-17) mg/dL Creatinine 0.59 (0.52-1.04) mg/dL Est GFR (CKD-EPI)AfAm >90 (>60 ml/min/1.73 sqM) Est GFR (CKD-EPI)NonAf >90 (>60 ml/min/1.73 sqM) Glucose 104 H (74-99) mg/dL Plasma Lactic Acid Moo (0.7-2.0) mmol/L Calcium 9.7 (8.4-10.2) mg/dL Total Bilirubin 0.4 (0.2-1.3) mg/dL AST 20 (14-36) U/L ALT 14 (4-34) U/L Alkaline Phosphatase 63 (38-126) U/L Total Protein 8.0 (6.3-8.2) g/dL Albumin 4.9 (3.5-5.0) g/dL Influenza Type A (PCR) Not Detected (Not Detectd) Influenza Type B (PCR) Not Detected (Not Detectd) RSV (PCR) Not Detected (Not Detectd) SARS-CoV-2 (PCR) Detected A (Not Detectd) 05/07/24 Range/Units 16:41 WBC (3.8-10.6) k/uL RBC (3.80-5.40) m/uL Hgb (11.4-16.0) gm/dL Hct (34.0-46.0) % MCV (80.0-100.0) fL MCH (25.0-35.0) pg MCHC (31.0-37.0) g/dL RDW (11.5-15.5) % Plt Count (150-450) k/uL MPV Neutrophils % % Lymphocytes % % Monocytes % % Eosinophils % % Basophils % % Neutrophils # (1.3-7.7) k/uL Lymphocytes # (1.0-4.8) k/uL Monocytes # (0-1.0) k/uL Eosinophils # (0-0.7) k/uL Basophils # (0-0.2) k/uL Sodium (137-145) mmol/L Potassium (3.5-5.1) mmol/L Chloride (98-107) mmol/L Carbon Dioxide (22-30) mmol/L Anion Gap mmol/L BUN (7-17) mg/dL Creatinine (0.52-1.04) mg/dL Est GFR (CKD-EPI)AfAm (>60 ml/min/1.73 sqM) Est GFR (CKD-EPI)NonAf (>60 ml/min/1.73 sqM) Glucose (74-99) mg/dL Plasma Lactic Acid Moo 1.0 (0.7-2.0) mmol/L Calcium (8.4-10.2) mg/dL Total Bilirubin (0.2-1.3) mg/dL AST (14-36) U/L ALT (4-34) U/L Alkaline Phosphatase (38-126) U/L Total Protein (6.3-8.2) g/dL Albumin (3.5-5.0) g/dL Influenza Type A (PCR) (Not Detectd) Influenza Type B (PCR) (Not Detectd) RSV (PCR) (Not Detectd) SARS-CoV-2 (PCR) (Not Detectd) - Radiology Data Radiology results: report reviewed, image reviewed Disposition Clinical Impression: COVID-19, Acute viral sinusitis Disposition: HOME SELF-CARE Condition: Stable Instructions (If sedation given, give patient instructions): Fever in Adults (ED), COVID-19 (Coronavirus Disease 2019) (ED) Additional Instructions: You may take [id number] Profen and Tylenol for fever control. Complete full course of Paxlovid. Follow-up with PCP. Return to ER for any new or w orsening concerns. Prescriptions: Nirmatrelvir/Ritonavir [Paxlovid 300-100 mg Dose Pack] 1 each PO BID 5 Days #10 each Is patient prescribed a controlled substance at d/c from ED?: No Referrals: Leno Oliva MD [Primary Care Provider] - 1-2 days Time of Disposition: 17:20
--- NOTE | 2024-05-07 14:04 | XR ---
EXAMINATION TYPE: XR chest 2V DATE OF EXAM: 05/07/2024 1:56 PM COMPARISON: Chest x-ray May 22, 2023 CLINICAL INDICATION: Female, 38 years old with history of covid, TECHNIQUE: Frontal and lateral views of the chest are obtained. FINDINGS: There is no focal air space opacity, pleural effusion, or pneumothorax seen. The cardiac silhouette size is stable and within normal limits. The osseous structures are intact. IMPRESSION: No acute pulmonary infiltrate. [facility], , 05/07/2024 2:01 PM
[2024-05-07] MEDS: ACETAMINOPHEN TAB 325 MG TAB PO STA (16:30)
[2024-05-07] MEDS: SODIUM CHLORIDE 0.9% 1,000 ML IV STA (16:31)
[2024-05-07 16:37] VITALS: BP 127/90; PULSE 59; RESP 17; TEMP 97.6
[2024-05-07 16:48] LABS: Basophils % (A) 0 %; Eosinophils # (A) 0.2 k/uL (0-0.7); Eosinophils % (A) 2 %; HCT 47.5 % (34.0-46.0); HGB 16.3 gm/dL (11.4-16.0); Lymphocytes # (A) 1.6 k/uL (1.0-4.8); Lymphocytes % (A) 19 %; MCH 31.3 pg (25.0-35.0); MCHC 34.3 g/dL (31.0-37.0); MCV 91.1 fL (80.0-100.0); Mean Platelet Volume 7.5; Monocytes # (A) 0.2 k/uL (0-1.0); Monocytes % (A) 3 %; Neutrophils # (A) 6.2 k/uL (1.3-7.7); Neutrophils % (A) 74 %; Platelet Count 236 k/uL (150-450); RBC 5.21 m/uL (3.80-5.40); RDW 12.2 % (11.5-15.5); WBC 8.4 k/uL (3.8-10.6)
[2024-05-07 17:01] LABS: ALT 14 U/L (4-34); AST 20 U/L (14-36); African American GFR (CKD) >90 (>60 ml/min/1.73 sqM); Albumin 4.9 g/dL (3.5-5.0); Alkaline Phosphatase 63 U/L (38-126); Anion Gap 10 mmol/L; Blood Urea Nitrogen 11 mg/dL (7-17); Calcium 9.7 mg/dL (8.4-10.2); Carbon Dioxide 24 mmol/L (22-30); Chloride 107 mmol/L (98-107); Glucose 104 mg/dL (74-99); Non-African American GFR(CKD) >90 (>60 ml/min/1.73 sqM); Potassium 4.7 mmol/L (3.5-5.1); Sodium 141 mmol/L (137-145); Total Bilirubin 0.4 mg/dL (0.2-1.3)
== END 2024-05-07 17:51 | disposition home or self-care (01) ==
LOC: EC 12:00
DX: U07.1 COVID-19 (principal); B97.89 Other viral agents as the cause of diseases classified elsewhere; F17.290 Nicotine dependence, other tobacco product, uncomplicated
CPT/HCPCS: 36415; 71046; 80053; 83605; 85025; 87636; 96360; 99284

== ENCOUNTER 2024-06-16 08:45 | Observation (INO) | payer OTHER ==
[2024-06-16 09:50] LABS: Influenza A Not Detected (Not Detectd); Influenza B Not Detected (Not Detectd); RSV Detected (Not Detectd)
--- NOTE | 2024-06-16 09:52 | XR ---
EXAMINATION TYPE: XR chest 2V DATE OF EXAM: 06/16/2024 9:47 AM COMPARISON: Chest radiographs from 05/07/2024 TECHNIQUE: XR chest 2V Frontal and lateral views of the chest. CLINICAL INDICATION:Female, 38 years old with history of chest pain/SOB; FINDINGS: Lungs/Pleura: There is no evidence of pleural effusion, focal consolidation, or pneumothorax. Pulmonary vascularity: Unremarkable. Heart/mediastinum: Cardiomediastinal silhouette is unremarkable. Musculoskeletal: No acute osseous pathology. IMPRESSION: No acute cardiopulmonary disease/process. [facility], , 06/16/2024 9:49 AM
[2024-06-16] MEDS: methylPREDNISolone SOD SUCCI 125 MG/2 ML VIAL IV STA (10:16)
[2024-06-16] MEDS: KETOROLAC 15 MG/ML 1 ML VIAL IVP STA (10:16)
[2024-06-16] MEDS: SODIUM CHLORIDE 0.9% 1,000 ML IV ONE (10:16)
--- NOTE | 2024-06-16 10:43 | ED ---
General Adult HPI - General Chief complaint: Shortness of Breath Stated complaint: SHAY Time Seen by Provider: 06/16/24 08:55 Source: patient, EMS, RN notes reviewed, old records reviewed Mode of arrival: EMS Limitations: no limitations - History of Present Illness Initial comments: This is a 38-year-old female who presents to the emergency department stating that she has a past medical history significant for multiple sclerosis. Patient states that over the last 2 days she has been short of breath and had a cough. Patient states she is also achy. Patient states that she feels weaker in her legs like it is more difficult to stand she think she is having an exacerbation of her MS. patient states she is weak in all 4 extremities but the right side is weaker to the point where she could not drive and pressed the gas pedal down and she is having trouble gripping things with the right hand. Patient states this is what she typically experiences when she has an exacerbation of her MS. Patient states she cannot tolerate oral steroids and typically needs to be admitted for this. Patient denies any chest pain. Patient has abdominal pain. Patient has nausea vomiting. Patient states she was told at another hospital that she had pneumonia. Patient states has been antibiotics and does not feel any better. - Related Data Home Medications Medication Instructions Recorded Confirmed Venlafaxine HCl ER [Effexor XR] 150 mg PO DAILY 11/04/20 05/07/24 Previous Rx's Medication Instructions Recorded Nirmatrelvir/Ritonavir [Paxlovid 1 each PO BID 5 Days #10 each 05/07/24 300-100 mg Dose Pack] Allergies Allergy/AdvReac Type Severity Reaction Status Date / Time No Known Allergies Allergy Verified 06/16/24 08:53 Review of Systems ROS Statement: Those systems with pertinent positive or pertinent negative responses have been documented in the HPI. ROS Other: All systems not noted in ROS Statement are negative. Past Medical History Past Medical History: Cancer, GERD/Reflux Additional Past Medical History / Comment(s): MS, history of cervical cancer at age 17 with surgery, migraines, small hiatal hernia. MS 2018. History of Any Multi-Drug Resistant Organisms: None Reported Past Surgical History: No Surgical Hx Reported Additional Past Surgical History / Comment(s): 10/01/17 LP at [facility], 10/03/17 blood patch, endoscopy. EGD, removal of wisdom teeth Past Anesthesia/Blood Transfusion Reactions: No Reported Reaction Past Psychological History: No Psychological Hx Reported Smoking Status: Current every day smoker, Vaper Past Alcohol Use History: Occasional Past Drug Use History: Marijuana - Past Family History Father Family Medical History: Hypertension Mother Family Medical History: Rheumatoid Arthritis (RA) General Exam - General Exam Comments Initial Comments: GENERAL: Patient is well-developed and well-nourished. Patient is nontoxic and well- hydrated and is in mild distress. ENT: Neck is soft and supple. No significant lymphadenopathy is noted. Oropharynx is clear. Moist mucous membranes. Neck has full range of motion without eliciting any pain. EYES: The sclera were anicteric and conjunctiva were pink and moist. Extraocular movements were intact and pupils were equal round and reactive to light. E yelids were unremarkable. PULMONARY: Unlabored respirations. Good breath sounds bilaterally. No audible rales rhonchi or wheezing was noted. CARDIOVASCULAR: There is a regular rate and rhythm without any murmurs gallops or rubs. ABDOMEN: Soft and nontender with normal bowel sounds. SKIN: Skin is clear with no lesions or rashes and otherwise unremarkable. NEUROLOGIC: Patient is alert and oriented x3. Cranial nerves II through XII are grossly intact. 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 Limitations: no limitations Course Vital Signs 06/16/24 06/16/24 08:47 12:16 Temperature 97.9 F 98.2 F Pulse Rate 48 L 76 Respiratory 18 18 Rate Blood Pressure 120/79 131/89 O2 Sat by Pulse 100 98 Oximetry Medical Decision Making - Medical Decision Making Was pt. sent in by a medical professional or institution (, PA, OCCUPATIONAL THERAPY CO DIRECTOR, urgent care, hospital, or retirement...) When possible be specific @ -No Did you speak to anyone other than the patient for history (EMS, parent, family, police, friend...)? What history was obtained from this source @ -No Did you review nursing and triage notes (agree or disagree)? Why? @ -I reviewed and agree with nursing and triage notes Were old charts reviewed (outside hosp., previous admission, EMS record, old EKG, old radiological studies, urgent care reports/EKG's, retirement records)? Report findings @ -No old charts were reviewed Differential Diagnosis? @ -Differential Weakness: Hypoglycemia, shock, sepsis, hyponatremia, anemia, infection, [place], ETOH, adverse medicine reaction, overdose, stroke, this is not meant to be an all-inclusive list. EKG interpreted by me (3pts min.). @ -As above X-rays interpreted by me (1pt min.). @ -None done CT interpreted by me (1pt min.). @ -None done U/S interpreted by me (1pt. min.). @ -None done What testing was considered but not performed or refused? (CT, X-rays, U/S, labs)? Why? @ -None What meds were considered but not given or refused? Why? @ -None Did you discuss the management of the patient with other professionals (professionals i.e. , PA, OCCUPATIONAL THERAPY CO DIRECTOR, lab, RT, psych nurse, social service assistant, warehouse laborer, teacher, accounting officer, immigration case worker)? Give summary @ -I spoke with Dr. Law he agreed to admit the patient Was smoking cessation discussed for >3mins.? @ -No Was critical care preformed (if so, how long)? @ -No Were there social determinants of health that impacted care today? How? ( Homelessness, low income, unemployed, alcoholism, drug addiction, transportation, low edu. Level, literacy, decrease access to med. care, nursing home, rehab)? @ -No Was there de-escalation of care discussed even if they declined (Discuss DNR or withdrawal of care, Hospice)? DNR status @ -No What co-morbidities impacted this encounter? (DM, HTN, Smoking, COPD, CAD, Cancer, CVA, ARF, Chemo, Hep., AIDS, mental health diagnosis, sleep apnea, morbid obesity)? @ -None Was patient admitted / discharged? Hospital course, mention meds given and route, prescriptions, significant lab abnormalities, going to OR and other pertinent info. @ -Patient has RSV but also seems to be having an exacerbation of her MS so patient was given 125 Solu-Medrol will be admitted to Dr. Law with a consult to neurology Undiagnosed new problem with uncertain prognosis? @ -No Drug Therapy requiring intensive monitoring for toxicity (Heparin, Nitro, Insulin, Cardizem)? @ -No Were any procedures done? @ -No Diagnosis/symptom? @ -RSV Acute, or Chronic, or Acute on Chronic? @ -Acute Uncomplicated (without systemic symptoms) or Complicated (systemic symptoms)? @ -Uncomplicated Side effects of treatment? @ -No Exacerbation, Progression, or Severe Exacerbation? @ -No Poses a threat to life or bodily function? How? (Chest pain, [place], [place], pneumonia, PE, COPD, DKA, ARF, appy, cholecystitis, CVA, Diverticulitis, Homicidal, Linda cidal, threat to staff... and all critical care pts) @ -No Diagnosis/symptom? @ -Exacerbation multiple sclerosis Acute, or Chronic, or Acute on Chronic? @ -Acute Uncomplicated (without systemic symptoms) or Complicated (systemic symptoms)? @ -Complicated Side effects of treatment? @ -None Exacerbation, Progression, or Severe Exacerbation] @ -No Poses a threat to life or bodily function? @ -No - Lab Data Result diagrams: 06/16/24 11:52 Lab Results 06/16/24 06/16/24 Range/Units 09:06 11:52 WBC 7.7 (3.8-10.6) k/uL RBC 4.50 (3.80-5.40) m/uL Hgb 13.9 (11.4-16.0) gm/dL Hct 42.7 (34.0-46.0) % MCV 94.9 (80.0-100.0) fL MCH 31.0 (25.0-35.0) pg MCHC 32.7 (31.0-37.0) g/dL RDW 12.6 (11.5-15.5) % Plt Count 287 (150-450) k/uL MPV 6.9 Neutrophils % 87 % Lymphocytes % 9 % Monocytes % 2 % Eosinophils % 1 % Basophils % 1 % Neutrophils # 6.7 (1.3-7.7) k/uL Lymphocytes # 0.7 L (1.0-4.8) k/uL Monocytes # 0.2 (0-1.0) k/uL Eosinophils # 0.0 (0-0.7) k/uL Basophils # 0.0 (0-0.2) k/uL Influenza Type A (PCR) Not Detected (Not Detectd) Influenza Type B (PCR) Not Detected (Not Detectd) RSV (PCR) Detected A (Not Detectd) SARS-CoV-2 (PCR) Not Detected (Not Detectd) Disposition Clinical Impression: RSV (acute bronchiolitis due to respiratory syncytial virus), Multiple sclerosis exacerbation Disposition: ADMITTED IP TO THIS HOSP Referrals: Leno Oliva MD [Primary Care Provider] - 1-2 days Time of Disposition: 12:23
[2024-06-16 12:11] LABS: Basophils % (A) 1 %; Eosinophils % (A) 1 %; HCT 42.7 % (34.0-46.0); HGB 13.9 gm/dL (11.4-16.0); Lymphocytes # (A) 0.7 k/uL (1.0-4.8); Lymphocytes % (A) 9 %; MCHC 32.7 g/dL (31.0-37.0); MCV 94.9 fL (80.0-100.0); Mean Platelet Volume 6.9; Monocytes # (A) 0.2 k/uL (0-1.0); Monocytes % (A) 2 %; Neutrophils # (A) 6.7 k/uL (1.3-7.7); Neutrophils % (A) 87 %; Platelet Count 287 k/uL (150-450); RDW 12.6 % (11.5-15.5); WBC 7.7 k/uL (3.8-10.6)
[2024-06-16] MEDS: ACETAMINOPHEN TAB 500 MG TAB PO STA (12:18)
[2024-06-16] MEDS ORDERED: MELATONIN 3 MG TABLET PO PRN (12:24)
[2024-06-16] MEDS ORDERED: CALCIUM CARBONATE 500 MG CHEWABLE PO PRN (12:24)
[2024-06-16] MEDS ORDERED: ACETAMINOPHEN TAB 325 MG TAB PO PRN (12:24)
[2024-06-16] MEDS: PANTOPRAZOLE 40 MG TABLET PO SCH (12:29)
--- NOTE | 2024-06-16 12:29 | P.HPIM ---
History of Present Illness H&P Date: 06/16/24 Patient is a 38-year-old female with past medical history of cervical cancer, migraine headaches, GERD, Abnormal stress test with abnormal EKG response to exercise with frequent PVCs, May 22, 2023, mild systolic cardiomyopathy EF 45 to 50%, tobacco use disorder, depression, history of multiple sclerosis, who presented to the ER on 06/16/2024 with shortness of breath that started couple days ago, associated cough. She also complains that her legs are feeling weaker and she believes she might be in MS exacerbation, she specifically noticed that the right side is a weaker side. She usually is able to ambulate without assistance, however, required for family support for ambulation over the past several days due to weakness. She shared that she last saw her neurologist a year ago and then the neurologist retired, she never followed up with any of the specialist, she is to be on therapy but stopped a year ago due to side effects. She started feeling sick 5 days ago, reports 3 episodes of syncope without prodrome, no seizure-like activity reported by her , no loss of bladder or bowel control. She complains of hot flashes She has associated nausea, vomiting, she was seen in another institution and was diagnosed with pneumonia, started on antibiotics without improvement Of note she was COVID-positive on 05/07/2024, was on Paxlovid. ER course: Afebrile, heart rate initially in 90s, and then in 50s, BP 118/64, satting well on room air. Lab work significant for no leukocytosis, erythrocytosis 16.3, platelet count normal, CMP remarkable only for elevated glucose 104, liver enzymes normal, RSV positive. Chest x-ray showed no acute process. Pertinent positives and negatives as discussed in HPI, a complete review of systems was performed and all other systems are negative. Patient seen and examined at bedside. She is tearful, states that she is scared that she is dying, complains of hot flashes, weakness Vital signs reviewed General: nontoxic, no distress, appears at stated age Derm: warm, dry Head: atraumatic, normocephalic, symmetric Eyes: EOMI, no lid lag, anicteric sclera, pupils equal round reactive to light ENT: Nose and ears atraumatic Neck: No thyromegaly, supple Mouth: no lip lesion, mucus membranes moist Cardiovascular: S1S2 reg, no murmur, no edema Lungs: clear to auscultation bilateral, no rhonchi, no rales, no wheeze, no accessory muscle use Abdominal: soft, nontender to palpation, no guarding, no appreciable organomegaly Ext: no gross muscle atrophy, muscle strength muscle strength 5 out of 5 left side, 3 out of 5 on the right side, right upper extremity seems to be weaker than the right lower extremity, no contractures Neuro: CN II-XII grossly intact Psych: Alert, oriented, appropriate affect Assessment/Plan: Right-sided weakness, rule out MS -Brain MRI/C-spine with and without ordered -Defer further steroids until MRI is resulted -Neurology consult RSV infection Shortness of breath secondary to above -Symptomatic management migraine headaches GERD, complains of epigastric pain, started on Protonix 40 daily Abnormal stress test with abnormal EKG response to exercise with frequent PVCs, May 22, 2023 mild systolic cardiomyopathy EF 45 to 50% follow-up with cardiology as outpatient, not on medications: tobacco use disorder depression: Continue home Effexor 150 daily The patient is admitted with an anticipated [greater] than 2 midnight stay as [inpatient/observation] status for evaluation of right-sided weakness, possible MS flare CODE STATUS: Full code DVT prophylaxis: Lovenox Anticipated discharge date: TBD Anticipated discharge place: Likely home A total of 40 minutes was spent on the care of this complex patient more than 50% of the time was spent in counseling and care coordination. Past Medical History Past Medical History: Cancer, GERD/Reflux Additional Past Medical History / Comment(s): MS, history of cervical cancer at age 17 with surgery, migraines, small hiatal hernia. MS 2018. History of Any Multi-Drug Resistant Organisms: None Reported Past Surgical History: No Surgical Hx Reported Additional Past Surgical History / Comment(s): 10/01/17 LP at [facility], 10/03/17 blood patch, endoscopy. EGD, removal of wisdom teeth Past Anesthesia/Blood Transfusion Reactions: No Reported Reaction Past Psychological History: No Psychological Hx Reported Smoking Status: Current every day smoker, Vaper Past Alcohol Use History: Occasional Past Drug Use History: Marijuana - Past Family History Father Family Medical History: Hypertension Mother Family Medical History: Rheumatoid Arthritis (RA) Medications and Allergies Home Medications Medication Instructions Recorded Confirmed Type Venlafaxine HCl ER [Effexor XR] 150 mg PO DAILY 11/04/20 05/07/24 History Nirmatrelvir/Ritonavir [Paxlovid 1 each PO BID 5 Days #10 each 05/07/24 Rx 300-100 mg Dose Pack] Allergies Allergy/AdvReac Type Severity Reaction Status Date / Time No Known Allergies Allergy Verified 06/16/24 08:53 Physical Exam Vitals: Vital Signs Temp Pulse Resp BP Pulse Ox 06/16/24 08:47 97.9 F 48 L 18 120/79 100 Intake and Output 06/15/24 06/16/24 06/16/24 22:59 06:59 14:59 Other: Weight 63.503 kg Results CBC & Chem 7: 06/16/24 11:52 Labs: Abnormal Lab Results - Last 24 Hours (Table) 06/16/24 Range/Units 09:06 RSV (PCR) Detected A (Not Detectd)
[2024-06-16 12:32] LABS: African American GFR (CKD) >90 (>60 ml/min/1.73 sqM); Anion Gap 9 mmol/L; Blood Urea Nitrogen 8 mg/dL (7-17); Calcium 8.4 mg/dL (8.4-10.2); Carbon Dioxide 20 mmol/L (22-30); Chloride 107 mmol/L (98-107); Glucose 143 mg/dL (74-99); Non-African American GFR(CKD) >90 (>60 ml/min/1.73 sqM); Potassium 3.4 mmol/L (3.5-5.1); Sodium 136 mmol/L (137-145)
[2024-06-16 12:33] LABS: ALT 10 U/L (4-34); AST 15 U/L (14-36); Albumin 3.8 g/dL (3.5-5.0); Alkaline Phosphatase 69 U/L (38-126); Total Bilirubin 0.8 mg/dL (0.2-1.3); Total Protein 6.5 g/dL (6.3-8.2)
[2024-06-16] MEDS: LACTATED RINGERS 1,000 ML IV SCH (13:42)
[2024-06-16] MEDS: ONDANSETRON 4 MG/2 ML VIAL IVP PRN (23:07)
[2024-06-16] MEDS ORDERED: BENZONATATE 100 MG CAP PO PRN (23:20)
[2024-06-17 07:41] VITALS: RESP 18
[2024-06-17] MEDS: PROCHLORPERAZINE INJ 10 MG/2 ML VIAL IVP PRN (08:23)
[2024-06-17] MEDS: ENOXAPARIN 40 MG/0.4 ML SYRINGE SQ SCH (08:23)
[2024-06-17 08:42] LABS: Basophils # (A) 0.06 X 10*3/uL (0.00-0.10); Basophils % (A) 0.7 %; Eosinophils # (A) 0.03 X 10*3/uL (0.04-0.35); Eosinophils % (A) 0.4 %; HCT 39.6 % (37.2-46.3); HGB 13.2 g/dL (12.0-15.0); Lymphocytes # (A) 1.83 X 10*3/uL (0.90-5.00); Lymphocytes % (A) 21.4 %; MCH 31.1 pg (27.0-32.0); MCHC 33.3 g/dL (32.0-37.0); MCV 93.2 FL (80.0-97.0); Mean Platelet Volume 9.9 FL (9.5-12.2); Monocytes # (A) 0.81 X 10*3/uL (0.20-1.00); Monocytes % (A) 9.5 %; NRBC Per 100 WBC 0 X 10*3/uL (0.00-0.01); Neutrophils # (A) 5.78 X 10*3/uL (1.80-7.70); Neutrophils % (A) 67.5 %; Platelet Count 287 X 10*3/uL (140-440); RBC 4.25 X 10*6/uL (4.10-5.20); RDW 12.8 % (11.5-14.5); WBC 8.55 X 10*3/uL (4.50-10.00)
[2024-06-17 09:00] LABS: ALT 9 U/L (8-44); AST 11 U/L (13-35); Albumin 3.8 g/dL (3.8-4.9); Albumin/Globulin Ratio 1.65 Ratio (1.60-3.17); Alkaline Phosphatase 58 U/L (41-126); Blood Urea Nitrogen 6.6 mg/dL (9.0-27.0); Calcium 8.7 mg/dL (8.7-10.3); Chloride 108 mmol/L (96-109); Globulin 2.3 g/dL (1.6-3.3); Glucose 88 mg/dL (70-110); Potassium 3.6 mmol/L (3.5-5.5); Sodium 140 mmol/L (135-145); Total Bilirubin 0.5 mg/dL (0.3-1.2); Total Protein 6.1 g/dL (6.2-8.2)
--- NOTE | 2024-06-17 14:15 | MR ---
EXAMINATION TYPE: MR brain/cspine wo/w DATE OF EXAM: 06/17/2024 1:14 PM COMPARISON: CT brain 10/12/2017, 09/13/2017 CLINICAL INDICATION: Female, 38 years old with history of MS flair?, IV Contrast: 6 cc Gadobutrol (None if empty) TECHNIQUE: Multiplanar, multisequence images of the brain and cervical spine is performed without and with IV co ntrast, utilizing 6 mL intravenous Gadobutrol . MS protocol. FINDINGS: Diffusion weighted images demonstrate no evidence of a recent infarct or other diffusion ab normality. There is no extra-axial fluid collection. There are a few T2/FLAIR hyperintense foci seen within the left frontal lobe subcortical and periventricular white matter. The periventricular white matter foci demonstrate perpendicular orientation to the ventricle. Focus seen within the anterior l eft parietal lobe periventricular white matter with another focus within the right temporal lobe subc ortical white matter. Largest within the left frontal lobe periventricular white matter measures up t o 7 mm (series 1602, image 19). No corresponding abnormal contrast enhancement. The ventricular syste m and cisternal spaces are normal in size and appearance. The brain volume is age appropriate. Midline structures demonstrate normal morphology. The craniocervical junction appears within normal limits. Post contrast images demonstrate no abnormal enhancement. The dural venous sinuses appear pa tent. The globes are intact. Mild mucosal thickening of the inferior right maxillary sinus. Remaining paranasal sinuses are relatively clear. Trace inferior left mastoid effusion. Alignment: The cervical vertebral bodies have preserved heights. Alignment is within normal limits gi mono patient positioning. Bones: Bone signal is within normal limits. Anterior osteophyte at C5-C6. Cord: The spinal cord is unremarkable with regards to their signal intensity and morphology. No abnor mal contrast enhancement. Discs: Minimal multilevel disc desiccation. C2-C3: No significant disc pathology. The spinal canal is patent. No neural foraminal stenosis. C3-C4: Small central disc protrusion without significant effacement of anterior thecal sac. No neura l foraminal stenosis. C4-C5: Minimal broad-based disc bulge without significant effacement of the anterior thecal sac. No neural foraminal stenosis. C5-C6: Minimal broad-based disc bulge without significant effacement of the anterior thecal sac. No neural foraminal stenosis. C6-C7: Small central disc protrusion without significant effacement of anterior thecal sac. No neura l foraminal stenosis. C7-T1: No significant disc pathology. The spinal canal is patent. No neural foraminal stenosis. Other: None. IMPRESSION: 1. No acute/subacute infarct or abnormal contrast enhancement. No evidence for intracranial mass. 2. Few supratentorial white matter foci likely related to reported multiple sclerosis. No enhancement to suggest active demyelination. 3. No abnormal spinal cord signal or enhancement to suggest active edema involving process. 4. Mild multilevel degenerative disc disease of the cervical spine. [facility], , 06/17/2024 2:13 PM
[2024-06-17 14:27] VITALS: BP 126/85; PULSE 75; TEMP 98.2
--- NOTE | 2024-06-17 17:42 | P.DS ---
Providers Date of admission: 06/16/24 12:24 Attending physician: Fabian Law Consults: 06/16/24 12:23 Consult Physician Urgent Consulting Provider: Bradly Gamez Consult Reason/Comments: Multiple sclerosis exacerbation Do you want consulting provider notified?: Yes Primary care physician: Leno Oliva MD Hospital Course: Discharge Diagnosis: Right-sided weakness, resolved, MS flare ruled out RSV infection GERD Nausea, vomiting, resolved Marijuana use disorder Hospital Course: Patient is a 38-year-old female with past medical history of cervical cancer, migraine headaches, GERD, Abnormal stress test with abnormal EKG response to exercise with frequent PVCs, May 22, 2023, mild systolic cardiomyopathy EF 45 to 50%, tobacco use disorder, depression, history of multiple sclerosis, who presented to the ER on 06/16/2024 with shortness of breath that started couple days ago, associated cough. She also complains that her legs are feeling weaker and she believes she might be in MS exacerbation, she specifically noticed that the right side is a weaker side. She usually is able to ambulate without assistance, however, required for family support for ambulation over the past several days due to weakness. She shared that she last saw her neurologist a year ago and then the neurologist retired, she never followed up with any of the specialist, she is to be on therapy but stopped a year ago due to side effects. She started feeling sick 5 days ago, reports 3 episodes of syncope without prodrome, no seizure-like activity reported by her , no loss of bladder or bowel control. She complains of hot flashes She has associated nausea, vomiting, she was seen in another institution and was diagnosed with pneumonia, started on antibiotics without improvement Of note she was COVID-positive on 05/07/2024, was on Paxlovid. ER course: Afebrile, heart rate initially in 90s, and then in 50s, BP 118/64, satting well on room air. Lab work significant for no leukocytosis, erythrocytosis 16.3, platelet count normal, CMP remarkable only for elevated glucose 104, liver enzymes normal, RSV positive. Chest x-ray showed no acute process. Brain MRI showed no acute process, few supratentorial white matter foci likely related to reported multiple sclerosis, no encasement to suggest active demyelination, mild multilevel degenerative disc disease of the cervical spine. Discussed with neurology, patient was cleared for discharge. Her weakness has resolved on day of admission, no IV steroids besides 1 dose in the ER was provided. . Advised to follow-up with primary care physician, establish care with neurology. He remained hemodynamically stable, lab work unremarkable. She was complaining of nausea and vomiting, received symptomatic treatment, of note, patient has a marijuana use disorder. Patient seen and examined at bedside Vital signs reviewed and stable. General: [nontoxic], [no distress], [appears at stated age] Derm: [warm], [dry] Head: [atraumatic], [normocephalic], [symmetric] Eyes: [EOMI], [no lid lag], [anicteric sclera] Mouth: [no lip lesion], [mucus membranes moist] Cardiovascular: [S1S2 reg], [no murmur] Lungs: [CTA bilateral], [no rhonchi, no rales] , [no accessory muscle use] Abdominal: [soft], [ nontender to palpation], [no guarding], [no appreciable organomegaly] Ext: [no gross muscle atrophy], [no edema], [no contractures] Neuro: [ CN II-XI grossly intact], [no focal neuro deficits] Psych: [Alert], [oriented], [appropriate affect] A total of 40 minutes of time were spent preparing this complex discharge summary. Patient was discharged on 06/17/2024. Plan - Discharge Summary Discharge Rx Participant: Yes New Discharge Prescriptions: New Pantoprazole [Protonix] 40 mg PO [facility] #30 tab Ondansetron [Zofran] 4 mg PO Q8HR PRN #20 tab PRN Reason: Nausea Continue Venlafaxine HCl ER [Effexor XR] 150 mg PO DAILY ALPRAZolam [Xanax] 1 mg PO DAILY PRN PRN Reason: Anxiety Amoxic-Pot Clav 875-125Mg [Augmentin 875-125] 1 tab PO Q12HR Discharge Medication List Venlafaxine HCl ER [Effexor XR] 150 mg PO DAILY 11/04/20 [History] ALPRAZolam [Xanax] 1 mg PO DAILY PRN 06/16/24 [History] Amoxic-Pot Clav 875-125Mg [Augmentin 875-125] 1 tab PO Q12HR 06/16/24 [History] Ondansetron [Zofran] 4 mg PO Q8HR PRN #20 tab 06/17/24 [Rx] Pantoprazole [Protonix] 40 mg PO AC-BRKFST #30 tab 06/17/24 [Rx] Follow up Appointment(s)/Referral(s): Leno Oliva MD [Primary Care Provider] - 1-2 days Bradly Gamez MD [STAFF PHYSICIAN] - 1 Week Patient Instructions/Handouts: Respiratory Syncytial Virus (DC), Cannabis Abuse (DC) Activity/Diet/Wound Care/Special Instructions: Please follow-up with your primary care physician, establish care with neurology Discharge Disposition: HOME SELF-CARE
--- NOTE | 2024-06-18 14:13 | P.CNNES ---
History of Present Illness Consult date: 06/17/24 Requesting physician: Ronny Walker Reason for Consult: Multiple sclerosis exacerbation History of Present Illness: Patient is a 38-year-old female with history of multiple sclerosis, came to the hospital by ambulance yesterday at 8:45 AM for worsening of right-sided weakness with febrile illness. Patient states that she was diagnosed with MS 6 years ago, when she developed acute severe weakness of the right side of the body. She could not walk. Patient used to follow-up with Dr. Flores, but after she retired, patient has not seen a neurologist for 1 year. Patient initially was placed on Aubagio, which she stayed for 2 years but it did not show good results as was expected. She was then switched to Kesimpta which she stayed for a year however she was having a lot of soreness from injections therefore stopped taking it. She has not been on any disease modifying medications for last 1 year. Patient recently developed RSV, pneumonia and noticed worsening of right- sided weakness, therefore came to the hospital for concern of MS exacerbation. Patient has not been sick like that before. Patient was started on antibiotics and at present she feels back to baseline. As per EMS flowsheet when they arrived for patient with near syncopal episode. Patient has mentioned that she has not been feeling well for a few days. She went to the hospital 2 days ago and was diagnosed with pneumonia. She was started on antibiotics that were prescribed but has been feeling worse. She has not been able to eat or drink anything for 4 days. She has had on and off nausea and became very weak. She is stated she just "almost passed out" and that is when her family called 911. Patient was feeling lightheaded. Blood glucose was 136. Blood pressure 137/63, pulse rate 72, respiration 16, saturat ion 99%, temperature 98.5. Chest x-ray showed no acute cardiopulmonary disease/process. I think blood test shows normal CBC, sodium 136 potassium 3.4. Normal renal functions. Hepatic panel is normal. RSV positive. Influenza and coronavirus negative. Home medications include Xanax, Augmentin and Effexor. Patient admits to vaping tobacco and smoking marijuana. Denies any alcohol use. No diabetes. Review of Systems All pertinent positive and negative review of systems mentioned in the HPI. Past Medical History Past Medical History: Cancer, GERD/Reflux Additional Past Medical History / Comment(s): MS, history of cervical cancer at age 17 with surgery, migraines, small hiatal hernia. MS 2018. History of Any Multi-Drug Resistant Organisms: None Reported Past Surgical History: No Surgical Hx Reported Additional Past Surgical History / Comment(s): 10/01/17 LP at [facility], 10/03/17 blood patch, endoscopy. EGD, removal of wisdom teeth Past Anesthesia/Blood Transfusion Reactions: No Reported Reaction Past Psychological History: No Psychological Hx Reported Additional Psychological History / Comment(s): Pt denies any history of depression but states she has some anxiety. She resides with her fiancee and her 3 children, ages 8, 11 and 16 yrs. She is independent. 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 Smoking Status: Vaper Past Alcohol Use History: Occasional Additional Past Alcohol Use History / Comment(s): Pt started smoking in 2001 and quit in 2008. Past Drug Use History: Marijuana Additional Drug Use History / Comment(s): Pt states she smoked marijuana on occasion. - Past Family History Father Family Medical History: Hypertension Mother Family Medical History: Rheumatoid Arthritis (RA) Medications and Allergies Home Medications Medication Instructions Recorded Confirmed Type Venlafaxine HCl ER [Effexor XR] 150 mg PO DAILY 11/04/20 06/16/24 History ALPRAZolam [Xanax] 1 mg PO DAILY PRN 06/16/24 06/16/24 History Amoxic-Pot Clav 875-125Mg 1 tab PO Q12HR 06/16/24 06/16/24 History [Augmentin 875-125] Ondansetron [Zofran] 4 mg PO Q8HR PRN #20 tab 06/17/24 Rx Pantoprazole [Protonix] 40 mg PO AC-BRKFST #30 tab 06/17/24 Rx Allergies Allergy/AdvReac Type Severity Reaction Status Date / Time No Known Allergies Allergy Verified 06/16/24 13:04 Physical Examination - Vital Signs Vital Signs: Vital Signs Temp Pulse Pulse Resp BP BP Pulse Ox 06/17/24 14:02 98.2 F 75 18 126/85 98 06/17/24 07:09 98.0 F 63 18 124/80 99 06/17/24 01:11 98.3 F 82 16 124/76 99 06/16/24 21:53 97.6 F 59 L 18 128/82 99 06/16/24 20:48 53 L 16 112/62 98 06/16/24 18:51 59 L 16 124/84 99 06/16/24 16:12 98.7 F 72 20 119/78 98 Intake and Output 06/17/24 06/17/24 06/17/24 06:59 14:59 22:59 Other: Voiding Method Toilet Toilet Weight 63.503 kg Patient is a young female, in no acute distress. Patient is alert awake oriented to time place and person. Speech and language functions are normal. Patient can name and repeat very well. No aphasia or dysarthria. Attention, concentration and fund of knowledge is adequate. On cranial nerve examination, pupils are equal, round and reacting to light, visual arenas are full on confrontation, with no neglect on double simultaneous stimulation. Extraocular muscles are intact with no nystagmus. Face is symmetric, tongue protrudes to the midline. Palatal elevation and sensation normal, hearing and shoulder shrug normal, facial sensation normal. On muscle strength testing, there is no pronator drift and the strength is normal in arms and legs distally and proximally. Deep tendon reflexes are (right/left) biceps 3/2+3, brachioradialis 3/2+3, knees 3+/3+, ankles 3/3 and plantars are flat bilaterally. Sensory to touch is equal with no neglect on double simultaneous stimulation. Cerebellar function showed no ataxia for [id number] testing. No dysdiadochokinesia. No ataxia for [id number] testing on either side. Tone and bulk of muscles normal. Gait deferred.. On general examination, there is no carotid bruit or murmur, S1-S2 audible. Chest is clear on consultation. Abdomen is soft nontender. No organomegaly, bowel sounds present. Peripheral pulses are present. No peripheral edema. Results - Laboratory Findings CBC and BMP: 06/17/24 03:25 06/17/24 03:25 Abnormal Lab Findings: Abnormal Labs 06/16/24 06/16/24 06/16/24 09:06 11:52 11:52 Lymphocytes # 0.7 L Eosinophils # Sodium 136 L Potassium 3.4 L Carbon Dioxide 20 L BUN Creatinine Glucose 143 H AST Total Protein RSV (PCR) Detected A 06/17/24 06/17/24 03:25 03:25 Lymphocytes # Eosinophils # 0.03 L Sodium Potassium Carbon Dioxide 21.0 L BUN 6.6 L Creatinine 0.5 L Glucose AST 11 L Total Protein 6.1 L RSV (PCR) Assessment and Plan Assessment: * History of relapsing remitting MS. Currently in remission. * Recent worsening of right-sided weakness likely due to recrudescence due to febrile illness. Her symptoms have resolved. MRI of the brain and cervical spine showed no enhancing lesions. * RSV infection * Vapes * Marijuana use Plan: * MRI of the brain with and without contrast revealed no acute/subacute infarct or abnormal contrast enhancement. No evidence for intracranial mass. Few supratentorial white matter foci likely related to reported multiple sclerosis. No enhancement to suggest active demyelination. I personally reviewed MRI agree with the findings. * MRI of the cervical spine showed no abnormal spinal cord signal or enhancement to suggest active edema involving process. Mild multilevel degenerative disc disease of the cervical spine. I personally reviewed MRI, agree with the findings. * Patient symptoms have all resolved and is back to baseline. * No clinical or radiographic evidence of MS exacerbation. No indication for steroids. * Patient recommended to establish a new neurologist, as her neurologist has retired. She is currently not on any disease modifying agents for last 1 year. * Recommend abstinence from vaping and marijuana use. * Neurologically clear for discharge. * Thank you for the consult.
== END 2024-06-17 18:00 | disposition home or self-care (01) ==
LOC: EC 08:45 → INTOOBSV 12:24 → 4SSUR 12:24
PROVIDERS: ADMIT Student in an Organized Health Care Education/Training Program; ATTEND Student in an Organized Health Care Education/Training Program
DX: J12.1 Respiratory syncytial virus pneumonia (principal); G35 Multiple sclerosis; K21.9 Gastro-esophageal reflux disease without esophagitis; G43.909 Migraine, unspecified, not intractable, without status migrainosus; I42.9 Cardiomyopathy, unspecified; I49.3 Ventricular premature depolarization; F17.290 Nicotine dependence, other tobacco product, uncomplicated; R73.9 Hyperglycemia, unspecified; R55 Syncope and collapse; R11.2 Nausea with vomiting, unspecified; F12.90 Cannabis use, unspecified, uncomplicated; M50.30 Other cervical disc degeneration, unspecified cervical region; F32.A Depression, unspecified; Z79.899 Other long term (current) drug therapy; Z11.52 Encounter for screening for COVID-19; Z11.59 Encounter for screening for other viral diseases; Z85.41 Personal history of malignant neoplasm of cervix uteri; Z86.16 Personal history of COVID-19
CPT/HCPCS: 96376; 96361 ×3; 96372; 96375 ×3; 96374; 99285; 36415; 93005; 97161; 97165; 80053 ×2; 85025 ×2; 87636; 71046; 70553; 72156; G0378 ×2; J0780; J2405 ×2; J1650; J1885; A9585; J2919